=== PATIENT | male | born 1970 | race Caucasian/White ===

== ENCOUNTER 2020-07-18 10:40 | Outpatient (REF) | payer OTHER, SELFPAY ==
[2020-07-18 11:52] LABS: Anion Gap 14 (12-20); Blood Urea Nitrogen 12 mg/dL (9-16); Calcium 8.8 mg/dL (8.4-10.2); Carbon Dioxide 26 mmol/L (22-29); Chloride 105 mmol/L (96-108); Estimated Glomerular Filt Rate > 60; Glucose Random 182 mg/dL (60-115); Potassium 4.7 mmol/l (3.3-5.1); Sodium 140 mmol/L (135-145)
== END 2020-07-18 10:41 | disposition home or self-care (01) ==
LOC: HO.LAB 10:40
PROVIDERS: PCP Internal Medicine; Visit Provider Internal Medicine
DX: R07.2 Precordial pain (principal)
CPT/HCPCS: 80048

== ENCOUNTER → 2020-07-31 13:33 | Outpatient (BNVA) | payer OTHER, SELFPAY | PROVIDERS: PCP Internal Medicine; Referring Provider Internal Medicine; Visit Provider Internal Medicine | DX: Z76.89 Persons encountering health services in other specified circumstances (principal) ==

== ENCOUNTER → 2020-09-26 12:52 | Outpatient (BNVA) | payer OTHER, SELFPAY | PROVIDERS: PCP Internal Medicine; Visit Provider Internal Medicine ==

== ENCOUNTER 2020-11-27 17:03 | Outpatient (REF) | payer OTHER, SELFPAY ==
--- NOTE | ~2020-11-27 | XR_ITS ---
EXAMINATION: XR KNEE, LEFT CLINICAL INFORMATION: Left knee pain. COMPARISON: None. TECHNIQUE: AP and lateral views of the left knee. FINDINGS: There is no evidence of acute fracture or dislocation of the left knee. No left knee effusion. Joint spaces are maintained. There is mild spurring at the patellofemoral joint. XR/XR knee LT 2V IMPRESSION: Mild degenerative change patellofemoral joint.
== END 2020-11-27 17:04 | disposition home or self-care (01) ==
LOC: HO.XRAY 17:03
PROVIDERS: PCP Internal Medicine; Visit Provider Nurse Practitioner Family
DX: M25.562 Pain in left knee (principal)
CPT/HCPCS: 73560

== ENCOUNTER 2020-12-26 10:06 | Outpatient (REF) | payer BC, SELFPAY ==
[2020-12-26 13:29] LABS: MANUAL DIFF FLAG NO
[2020-12-26 13:37] LABS: Basophils Percent Auto 0.5 % (0-2); Eosinophils Absolute Auto 0.3 X10*3/uL (0.0-0.4); Eosinophils Percent Auto 5.7 % (0-4); Hematocrit 47.7 % (42-52); Hemoglobin 15.3 g/dl (14.0-18.0); Imm Gran Abs Auto 0.03 X10*3/uL (0.00-0.03); Imm Gran Pct Auto 0.5 % (0.0-0.4); Lymphocytes Absolute Auto 1.5 X10*3/uL (1.2-4.9); Mean Corpuscular HGB Conc 32.1 g/dl (31.0-36.0); Mean Corpuscular Hemoglobin 27.1 pg (27.0-33.0); Mean Corpuscular Volume 84.4 fL (80-98); Mean Platelet Volume 10.6 fL (9.4-12.4); Monocytes Absolute Auto 0.4 X10*3/uL (0.1-1.2); Monocytes Percent Auto 7.6 % (2-11); Neutrophils Absolute Auto 3.5 X10*3/uL (2.0-8.3); Neutrophils Percent Auto 59.7 % (45-73); Platelet Count 262 X10*3/uL (160-400); Red Blood Count 5.65 X10*6/uL (4.60-5.80); Red Cell Distribution Width 12.8 % (11.0-16.0); White Blood Count 5.8 X10*3/uL (4.8-10.8)
[2020-12-26 13:48] LABS: Glucose Urine UA 500 MG/DL (NEG); Leukocyte Esterase Urine NEG (NEG); Nitrite Urine NEG (NEG); PH 5.5 (5.0-8.0); Specific Gravity - Urine 1.025 (1.005-1.025); Urine Blood NEG (NEG); Urine Ketones NEG (NEG); Urine Protein NEG (NEG-TRACE)
[2020-12-26 13:51] LABS: Appearance Urine CLEAR; Color Urine YELLOW
[2020-12-26 14:15] LABS: Alanine Aminotransferase 28 U/L (0-40); Albumin Level 4.4 g/dL (3.5-5.0); Alkaline Phosphatase 74 U/L (39-117); Anion Gap 15 (12-20); Aspartate Amino Transferase 22 U/L (5-37); Bilirubin Total 0.7 mg/dL (0.0-1.0); Blood Urea Nitrogen 14 mg/dL (9-16); Calcium 9.3 mg/dL (8.4-10.2); Carbon Dioxide 26 mmol/L (22-29); Chloride 105 mmol/L (96-108); Estimated Glomerular Filt Rate > 60; Glucose Fasting 137 mg/dL (60-99); Potassium 4.7 mmol/L (3.3-5.1); Sodium 141 mmol/L (135-145); Total Protein 6.8 g/dL (6.5-8.0)
[2020-12-26 14:17] LABS: Cholesterol 135 mg/dL; HDL Cholesterol 38 mg/dL; LDL Cholesterol Calculated 83 mg/dl; Triglycerides 72 mg/dL
[2020-12-26 14:20] LABS: Estimated Average Glucose 235 mg/dL; Hemoglobin A1c % 9.8 %
[2020-12-26 14:25] LABS: Creatinine Urine 77.64 mg/dL
[2020-12-26 14:40] LABS: TSH reflex Free T4 1.41 uIU/mL (0.32-4.0); Vitamin D 25-OH Total 18.2 ng/mL (>30)
[2020-12-27 05:16] LABS: LDL Cholesterol Direct 82 mg/dL (<100)
== END 2020-12-26 10:07 | disposition home or self-care (01) ==
LOC: HO.10HDL 10:06
PROVIDERS: Internal Medicine; PCP Internal Medicine; Visit Provider Internal Medicine
DX: E66.9 Obesity, unspecified (principal); M25.562 Pain in left knee; E11.65 Type 2 diabetes mellitus with hyperglycemia; I10 Essential (primary) hypertension; E78.5 Hyperlipidemia, unspecified; M19.90 Unspecified osteoarthritis, unspecified site; E78.00 Pure hypercholesterolemia, unspecified; E55.9 Vitamin D deficiency, unspecified; Z79.4 Long term (current) use of insulin
CPT/HCPCS: 36415; 80053; 80061; 81003; 82043; 82306; 83036; 83721; 84443; 85025

== ENCOUNTER → 2021-02-24 15:36 | Outpatient (BNVA) | payer BC, SELFPAY | PROVIDERS: PCP Internal Medicine; Visit Provider Internal Medicine | DX: E11.65 Type 2 diabetes mellitus with hyperglycemia (principal); E78.5 Hyperlipidemia, unspecified; E55.9 Vitamin D deficiency, unspecified; I10 Essential (primary) hypertension; Z79.4 Long term (current) use of insulin; Z71.3 Dietary counseling and surveillance | CPT/HCPCS: 82947 ==

== ENCOUNTER 2021-06-04 10:46 | Outpatient (REF) | payer BC, SELFPAY ==
[2021-06-04 14:06] LABS: MANUAL DIFF FLAG NO
[2021-06-04 14:08] LABS: Appearance Urine CLEAR; Color Urine YELLOW; Glucose Urine UA 100 MG/DL (NEG); Leukocyte Esterase Urine NEG (NEG); Nitrite Urine NEG (NEG); Specific Gravity - Urine 1.025 (1.005-1.025); Urine Blood NEG (NEG); Urine Ketones NEG (NEG); Urine Protein NEG (NEG-TRACE)
[2021-06-04 14:16] LABS: Basophils Percent Auto 0.7 % (0-2); Eosinophils Absolute Auto 0.4 X10*3/uL (0.0-0.4); Eosinophils Percent Auto 5.7 % (0-4); Hematocrit 45.5 % (42-52); Hemoglobin 14.4 g/dl (14.0-18.0); Imm Gran Abs Auto 0.02 X10*3/uL (0.00-0.03); Imm Gran Pct Auto 0.3 % (0.0-0.4); Lymphocytes Absolute Auto 1.2 X10*3/uL (1.2-4.9); Lymphocytes Percent Auto 19.8 % (20-40); Mean Corpuscular HGB Conc 31.6 g/dl (31.0-36.0); Mean Corpuscular Volume 85.4 fL (80-98); Mean Platelet Volume 11.3 fL (9.4-12.4); Monocytes Absolute Auto 0.4 X10*3/uL (0.1-1.2); Monocytes Percent Auto 6.4 % (2-11); Neutrophils Absolute Auto 4.1 X10*3/uL (2.0-8.3); Neutrophils Percent Auto 67.1 % (45-73); Platelet Count 230 X10*3/uL (160-400); Red Blood Count 5.33 X10*6/uL (4.60-5.80); Red Cell Distribution Width 12.9 % (11.0-16.0); White Blood Count 6.1 X10*3/uL (4.8-10.8)
[2021-06-04 14:25] LABS: Estimated Average Glucose 197 mg/dL; Hemoglobin A1c % 8.5 %
[2021-06-04 14:36] LABS: Creatinine Urine 133.52 mg/dL; Microalbum/Creatinine Ratio Ur 8.2 ug/mg cr
[2021-06-04 14:44] LABS: Alanine Aminotransferase 27 U/L (0-40); Albumin Level 4.3 g/dL (3.5-5.0); Alkaline Phosphatase 72 U/L (39-117); Anion Gap 15 (12-20); Aspartate Amino Transferase 19 U/L (5-37); Bilirubin Total 0.6 mg/dL (0.0-1.0); Blood Urea Nitrogen 11 mg/dL (9-16); Calcium 9.1 mg/dL (8.4-10.2); Carbon Dioxide 23 mmol/L (22-29); Chloride 105 mmol/L (96-108); Cholesterol 156 mg/dL; Estimated Glomerular Filt Rate > 60; Glucose Fasting 149 mg/dL (60-99); HDL Cholesterol 45 mg/dL; LDL Cholesterol Calculated 93 mg/dl; Potassium 5.1 mmol/L (3.3-5.1); Sodium 138 mmol/L (135-145); Total Protein 6.7 g/dL (6.5-8.0); Triglycerides 94 mg/dL
[2021-06-04 14:50] LABS: TSH reflex Free T4 1.54 uIU/mL (0.32-4.0); Vitamin D 25-OH Total 34.6 ng/mL (>30)
== END 2021-06-04 10:47 | disposition home or self-care (01) ==
LOC: HO.10HDL 10:46
PROVIDERS: Absent Provider Internal Medicine; Visit Provider Internal Medicine
DX: E55.9 Vitamin D deficiency, unspecified (principal); E66.9 Obesity, unspecified; E78.00 Pure hypercholesterolemia, unspecified; E11.65 Type 2 diabetes mellitus with hyperglycemia; I10 Essential (primary) hypertension; Z79.4 Long term (current) use of insulin
CPT/HCPCS: 36415; 80053; 80061; 81003; 82043; 82306; 83036; 84443; 85025

== ENCOUNTER 2021-06-19 10:26 | Outpatient (REF) | payer BC, SELFPAY ==
--- NOTE | ~2021-06-19 | US_ITS ---
EXAMINATION: US RETROPERITONEAL LIMITED (RENAL ONLY) CLINICAL INFORMATION: Unspecified abdominal pain. COMPARISON: Urinary bladder ultrasound dated 07/27/2011. CT abdomen/pelvis dated 11/02/2007. TECHNIQUE: Real-time imaging of the kidneys. FINDINGS: RIGHT KIDNEY: 11.3 x 5.7 x 5.8 cm (SAG x AP x TRV). The kidney is normal in size, contour, and echogenicity. Renal cortical thickness is normal. No calculi or focal parenchymal lesions. No hydronephrosis. LEFT KIDNEY: 12.1 x 6.1 x 5.1 cm (SAG x AP x TRV). The kidney is normal in size, contour, and echogenicity. Renal cortical thickness is normal. No renal calculi or hydronephrosis. Midpole simple cyst measuring 1 x 1 x 0.6 cm. Findings are not clinically significant and no follow-up imaging is recommended. This is stable when compared to the prior CT from 2007. US/US renal BI IMPRESSION: Unremarkable examination.
== END 2021-06-19 10:27 | disposition home or self-care (01) ==
LOC: HO.HMGCX 10:26
PROVIDERS: PCP Internal Medicine; Visit Provider Nurse Practitioner Family
DX: E11.65 Type 2 diabetes mellitus with hyperglycemia (principal); E78.5 Hyperlipidemia, unspecified; I10 Essential (primary) hypertension; E55.9 Vitamin D deficiency, unspecified; E66.01 Morbid (severe) obesity due to excess calories; Z68.35 Body mass index [BMI] 35.0-35.9, adult; Z79.4 Long term (current) use of insulin
CPT/HCPCS: 76775; 82947

== ENCOUNTER → 2021-09-18 12:50 | Outpatient (BNVA) | payer BC, SELFPAY | PROVIDERS: PCP Internal Medicine; Referring Provider Internal Medicine; Visit Provider Nurse Practitioner ==

== ENCOUNTER 2021-09-25 16:00 | Outpatient (RCR) | payer BC, SELFPAY ==
--- NOTE | 2021-05-20 18:46 | MHC.PT.EP ---
[facility] [place] Office [place] Office [place] Office [address] Ifeanyi Billings [address] [phone] F: [phone] F: [phone] F: [phone] F: [phone] Physical Therapy Plan of Care Date of Evaluation: Date of Surgery: n/a on L knee Diagnosis: pain in L knee Assessment: Pt is a 50 yo/M present to clinic for eval/treat of pain in R knee. Pt presents with signs and sx consistent with knee dysfunction resulting in decreased tolerance and ability to perform ambulatory, standing tasks for duration, performing fitness activities such as running, negotiating stairs, performing squatting activities and heavy HH chores. Functional limitations mentioned above are secondary to restricted knee ROM, + Margaret test, TTP infrapattellar region, gait abnormality and infrapatellar pain. Pt is deemed an appropriate candidate to receive skilled PT in order to address his physical limitations to improve his functional ability. Frequency and Duration: The patient will be seen 2x/wk for 5 wk Short Term Goals: Initiate HEP I w/ evidence of Compliance pt will report feeling pain less than 1/10 at rest Hadoop Analyst Goals: Pt will be able to ambulate 1 mile w/ little to no pain; initial extreme difficulty pt will be able to negotiate stairs w/ little to no pain; initial extreme difficulty pt will improve his LEFI score by increment of 2 MDC and MCID; initial score 32/80 Treatment Plan: Modalities to reduce pain, spasms and effusion. Manual therapy to restore motion and function. Therapeutic exercise to improve strength and flexibility. Neuromuscular re-education for posture and balance. Therapeutic activities to return to functional activities of daily living. Electronically signed by: Ben Bernardo PT Please sign and return to therapist. Thank you for your referral.
== END 2021-10-31 10:37 | disposition home or self-care (01) ==
LOC: HO.PTCHIC 16:00
PROVIDERS: PCP Internal Medicine; Visit Provider Internal Medicine
DX: M25.562 Pain in left knee (principal)
CPT/HCPCS: 97014; 97110; 97140; 97161; 97530

== ENCOUNTER → 2021-11-27 07:33 | Outpatient (BNVA) | payer BC, SELFPAY | PROVIDERS: PCP Internal Medicine; Visit Provider Nurse Practitioner Gerontology | DX: E11.65 Type 2 diabetes mellitus with hyperglycemia (principal); E78.5 Hyperlipidemia, unspecified; E55.9 Vitamin D deficiency, unspecified; E66.01 Morbid (severe) obesity due to excess calories; I10 Essential (primary) hypertension; Z79.4 Long term (current) use of insulin; Z68.34 Body mass index [BMI] 34.0-34.9, adult | CPT/HCPCS: 82947 ==

== ENCOUNTER 2021-12-11 07:52 | Day surgery (SDC) | payer BC, SELFPAY ==
[2021-12-08 12:41] VITALS: BMI 35.5
--- NOTE | 2021-12-10 09:32 | P.CONAN_ITS ---
Documented by User: Britt Watters NP 12/10/21 09:33 HPI - Anesthesia Eval Consult details Narrative: 51yo M for Colonoscopy PMFSH Active Problems Active Problems: All Active Problems (Updated 09/01/21 @ 16:59 by Marin Smith MD) Nasal congestion (Acute) Obesity due to excess calories (Acute) Back pain (Acute) Right flank pain (Acute) Colon cancer screening (Acute) Anxiety and depression (Acute) Annual physical exam (Acute) Benign essential hypertension (Acute) Obesity (BMI 30-39.9) (Acute) Osteoarthritis of left knee (Acute) Diabetes mellitus (Acute) Pure hypercholesterolemia (Acute) Left knee pain (Acute) Vitamin D deficiency (Acute) HTN (hypertension) (Acute) HLD (hyperlipidemia) (Acute) T2DM (type 2 diabetes mellitus) (Acute) Past Medical History Medical History Anxiety and depression Benign essential hypertension Diabetes mellitus History of testicular cancer HLD (hyperlipidemia) HTN (hypertension) Left knee pain Obesity (BMI 30-39.9) Obesity due to excess calories Osteoarthritis of left knee Pure hypercholesterolemia T2DM (type 2 diabetes mellitus) Vitamin D deficiency Family History Family History Father CVD (cardiovascular disease) Mother No problems noted. Other Mental health problem Surgical History Surgical History History of orchiectomy Hx of fasciotomy Hx of oral surgery Social History Social History Household Members: Spouse, Family and Children Housing: House Alcohol intake: former Patient Tobacco Use Status: Never used Tobacco Second Hand Smoke Exposure: Yes Use of substances other than those prescribed or required for medical reasons: No Are you DNR?: No Advance Directives: No Advance Directives Information Provided: Yes Recently lost weight without trying: No service: Yes Current occupational status: employed Meds Allergies Allergy/AdvReac Type Severity Reaction Status Date / Time Penicillins AdvReac GI UPSET Verified 11/27/21 07:43 Home Medications Medication Instructions Recorded Confirmed Last Taken Type flash glucose scanning reader #1 ea 09/26/20 09/01/21 Unknown History pen needle, diabetic 31 gauge x #50 ea 09/26/20 09/01/21 Unknown History 11/19 azelastine 137 mcg (0.1 %) nasal 2 spray INTRANASAL BID 06/19/21 11/27/21 Unknown History spray aerosol Exam Exam Date and Time: December 10, [id number] Height,Weight and Vital Signs: Height 5 ft 6 in Weight 99.79 kg Assessment and Plan Assessment Anesthesia Assessment: Chart Reviewed Documented by User: Isabell Grace MD 12/11/21 09:25 [facility] Past Medical History Medical History Anxiety and depression Benign essential hypertension Diabetes mellitus History of testicular cancer HLD (hyperlipidemia) HTN (hypertension) Left knee pain Obesity (BMI 30-39.9) Obesity due to excess calories Osteoarthritis of left knee Pure hypercholesterolemia T2DM (type 2 diabetes mellitus) Vitamin D deficiency Family History Family History Father CVD (cardiovascular disease) Mother No problems noted. Other Mental health problem Surgical History Surgical History History of orchiectomy Hx of fasciotomy Hx of oral surgery History of Problems with Anesthesia: No Social History Social History Household Members: Spouse, Family and Children Housing: House Alcohol intake: former Patient Tobacco Use Status: Never used Tobacco Second Hand Smoke Exposure: Yes Use of substances other than those prescribed or required for medical reasons: No Are you DNR?: No Advance Directives: No Advance Directives Information Provided: Yes Recently lost weight without trying: No service: Yes Current occupational status: employed Meds Allergies Allergy/AdvReac Type Severity Reaction Status Date / Time Penicillins AdvReac GI UPSET Verified 11/27/21 07:43 Home Medications Medication Instructions Recorded Confirmed Last Taken Type flash glucose scanning reader #1 ea 09/26/20 09/01/21 Unknown History pen needle, diabetic 31 gauge x #50 ea 09/26/20 09/01/21 Unknown History 11/19 azelastine 137 mcg (0.1 %) nasal 2 spray INTRANASAL BID 06/19/21 11/27/21 Unknown History spray aerosol Exam Airway Mallampati Class: II TM Dist: >3cm Neck ROM: Full Loose/Missing/Broken Teeth: No Heart: RRR Lungs: CTA Assessment and Plan Assessment Anesthesia Assessment: Anesthesia Plan Discussed Final Anesthetic Review History of Problems with Anesthesia: No NPO: Yes ASA Class: II Final Preanesthetic Review: Meds/Allgs Chart Reviewed, Consent Obtained/Reviewed and Anes Risks/Benef Reviewed Patient Risk: Low Procedure Risk: Low Anesthetic Plan Anesthetic Plan: MAC: Disposition: Standard PACU
[2021-12-11 08:33] VITALS: BP 134/90; PULSE 75; RESP 18; TEMP 36.3; O2SAT 97
[2021-12-11 08:48] LABS: Glucose, Whole Blood 154 mg/dL (60-115)
[2021-12-11] MEDS: Lactated Ringers 1,000 ML 100 ML IVCONT (09:17)
--- NOTE | 2021-12-11 09:22 | MHC.SHP ---
Pre-Procedural Eval Section A Date of Service: 12/11/21 Section B Chief Complaint: screening Relevant Family History (Specify if Yes): No Relevant Social History: None Present Medications: see Short Stay Collaborative assessment Medical History: Significant History (Anxiety and depression Benign essential hypertension Diabetes mellitus History of testicular cancer HLD (hyperlipidemia) HTN (hypertension) Left knee pain Obesity (BMI 30-39.9) Obesity due to excess calories Osteoarthritis of left knee Pure hypercholesterolemia T2DM (type 2 diabetes mellitus) Vitami) History of Previous Operations: Relevant previous surgery/procedure and date(s) (History of orchiectomy Hx of fasciotomy Hx of oral surgery) Allergies: Allergies Allergy/AdvReac Type Severity Reaction Status Date / Time Penicillins AdvReac GI UPSET Verified 11/27/21 07:43 Review of Systems Sugical H&P ROS: Negative: Constitution, Cardiovascular, Respiratory, Neurological, Psychiatric, Hem-Onc, Allergic/Immunologic, Gastrointestinal, Genitourinary, Musculoskeletal, Integumentary, Endocrine and Eyes/Ears/Nose/Throat Exam Surgical H&P Exam: Normal: HEENT, Normal: Heart, Normal: Lungs, Normal: Extremities, Normal: Abdomen, Normal: Skin and Normal: Neurological Plan Diagnosis/Plan: Unchanged I have reviewed the history and physical and performed a pertinent physical examination on my patient. No changes have occurred unless specified.
--- NOTE | 2021-12-11 09:23 | P.OP_ITS ---
Operative Note Operative Note Date of Service: 12/11/21 Narrative: Operative Information Procedure Description: Colonoscopy Indication: screening colonoscopy--average risk Anesthesia: MAC COLONOSCOPY Instrument: Olympus variable stiffness pediatric scope 190L Colonoscopy Monitoring: Vital signs and clinical assessment, continuous EKG monitoring, Pulse oximetry, Carbon Dioxide monitoring and blood pressure monitoring were done throughout the procedure. Colon withdrawal time was 13 minutes. Procedure: The patient was placed in the left lateral decubitis position and pre-procedure medications were administered. After a digital rectal examination of the ano-rectum, the video colonoscope was inserted into the rectum and advanced through the colon to the cecum/TI. The colonoscope was slowly withdrawn in a retrograde panoramic fashion and the colon mucosa was carefully examined including a retroflexed view of the rectum. Findings and interventions are described below. Procedure Difficulty: easy Findings: Terminal Ileum-normal right sided retroflexion was normal Cecum:normal Ascending Colon: normal Transverse Colon - diminutive polyp 3-4 mm removed with cold forceps Descending Colon:normal Sigmoid Colon: 10-12 mm semi pedunculated polyp removed with cold snare and 1 clip applied for hemostasis Rectum: Retroflexion with small internal hemorrhoids, grade I Anorectum - normal Colon preparation: Hazel Bowel Preparation Scale Right colon; 3 Transverse colon: 3 Left colon; 2 (0 = Unprepared colon segment with mucosa not seen due to solid stool that cannot be cleared. 1 = Portion of mucosa of the colon segment seen, but other areas of the colon se gment not well seen due to staining, residual stool and/or opaque liquid. 2 = Minor amount of residual staining, small fragments of stool and/or opaque liquid, but mucosa of colon segment seen well. 3 = Entire mucosa of colon segment seen well with no residual staining, small fragments of stool or opaque liquid) Impression and Post Procedure Diagnosis: polyps internal hemorrhoids Plan: High fiber diet leaflet Avoid straining at stool, epsom salts and sitz bath, anusol supps or cream Repeat Colonoscopy in 5 years due to polyps or earlier if clinically indicated Above findings were reviewed with the patient and relevant handouts were provided if indicated.
--- NOTE | 2021-12-11 09:23 | PM.OP ---
Brief Operative Note Date of Service: 12/11/21 Pre-op diagnosis: screening Post-op diagnosis: same Procedure: see op note Surgeon: Shakira Escamilla MD Anesthesia: MAC Was an Instructor Warper used for this Procedure?: No Estimated blood loss (mL): 0 Condition: stable Disposition: PACU
[2021-12-11 09:57] VITALS: BP 95/58; PULSE 70; RESP 16; TEMP 36.6; O2SAT 97
[2021-12-11 10:12] VITALS: BP 100/64; PULSE 77; RESP 18; TEMP 36.6; O2SAT 96
== END 2021-12-11 10:51 | disposition home or self-care (01) ==
PROVIDERS: PCP Internal Medicine; Visit Provider Internal Medicine Gastroenterology
PROC: 0DJD8ZZ Inspection of Lower Intestinal Tract, Via Natural or Artificial Opening Endoscopic (ICD-10-PCS; CPT 45378; principal; 2021-12-11 09:20)
DX: Z12.11 Encounter for screening for malignant neoplasm of colon (principal); K63.5 Polyp of colon; K64.0 First degree hemorrhoids; E66.01 Morbid (severe) obesity due to excess calories; Z68.35 Body mass index [BMI] 35.0-35.9, adult; E11.9 Type 2 diabetes mellitus without complications; I10 Essential (primary) hypertension; E78.5 Hyperlipidemia, unspecified; E78.00 Pure hypercholesterolemia, unspecified; F32.9 Major depressive disorder, single episode, unspecified; Z79.4 Long term (current) use of insulin; Z79.899 Other long term (current) drug therapy; Z85.47 Personal history of malignant neoplasm of testis; Z90.79 Acquired absence of other genital organ(s); Z88.0 Allergy status to penicillin
CPT/HCPCS: 45385; 45380; 82947; 88305

== ENCOUNTER → 2021-12-26 07:38 | Outpatient (BNVA) | payer BC, SELFPAY | PROVIDERS: PCP Internal Medicine; Referring Provider Internal Medicine; Visit Provider Nurse Practitioner | DX: Z13.89 Encounter for screening for other disorder (principal) ==

== ENCOUNTER 2023-04-22 08:13 | Outpatient (REF) | payer BC, SELFPAY ==
[2023-04-22 08:41] LABS: MANUAL DIFF FLAG NO
[2023-04-22 08:50] LABS: Basophils Absolute Auto 0.1 X10*3/uL (0.0-0.2); Basophils Percent Auto 0.7 % (0-2); Eosinophils Absolute Auto 0.5 X10*3/uL (0.0-0.4); Eosinophils Percent Auto 6.7 % (0-4); Hematocrit 47.1 % (42.0-52.0); Hemoglobin 15.2 g/dl (14.0-18.0); Imm Gran Abs Auto 0.06 X10*3/uL (0.00-0.03); Imm Gran Pct Auto 0.9 % (0.0-0.4); Lymphocytes Absolute Auto 1.6 X10*3/uL (1.2-4.9); Lymphocytes Percent Auto 22.3 % (20-40); Mean Corpuscular HGB Conc 32.3 g/dl (31.0-36.0); Mean Corpuscular Hemoglobin 26.8 pg (27.0-33.0); Mean Corpuscular Volume 82.9 fL (80.0-98.0); Monocytes Absolute Auto 0.5 X10*3/uL (0.1-1.2); Monocytes Percent Auto 7.2 % (2-11); Neutrophils Absolute Auto 4.3 x10*3/uL (2.0-8.3); Neutrophils Percent Auto 62.2 % (45-73); Platelet Count 250 X10*3/uL (160-400); Red Blood Count 5.68 X10*6/uL (4.60-5.80)
[2023-04-22 09:06] LABS: Estimated Average Glucose 269 mg/dL
[2023-04-22 09:55] LABS: Alanine Aminotransferase 27 U/L (0-40); Albumin Level 4.3 g/dL (3.5-5.0); Alkaline Phosphatase 61 U/L (39-117); Anion Gap 15 (12-20); Aspartate Amino Transferase 21 U/L (5-37); Bilirubin Total 0.6 mg/dL (0.0-1.0); Blood Urea Nitrogen 22 mg/dL (9-16); Calcium 9.4 mg/dL (8.4-10.2); Carbon Dioxide 26 mmol/L (22-29); Chloride 104 mmol/L (96-108); Cholesterol 138 mg/dL; Estimated Glomerular Filt Rate > 60; Glucose Fasting 157 mg/dL (60-99); HDL Cholesterol 33 mg/dL; LDL Cholesterol Calculated 77 mg/dl; Potassium 4.5 mmol/L (3.3-5.1); Sodium 140 mmol/L (135-145); Total Protein 6.9 g/dL (6.5-8.0); Triglycerides 141 mg/dL
[2023-04-22 09:58] LABS: TSH reflex Free T4 1.99 uIU/mL (0.32-4.0); Vitamin D 25-OH Total 40.2 ng/mL (>30)
[2023-04-22 10:07] LABS: Folate 12.2 ng/mL (> or = 4.0); Vitamin B12 624 pg/mL (200-900)
[2023-04-22 11:16] LABS: Appearance Urine Clear; Color Urine Yellow; Glucose Urine UA >=1000 mg/dL (Negative); Leukocyte Esterase Urine Negative (Negative); Nitrite Urine Negative (Negative); PH 5.5 (5.0-9.0); Specific Gravity - Urine >= 1.030 (1.005-1.025); UMIC TRIGGER UACC YES; Urine Blood Negative (Negative); Urine Ketones Negative (Negative); Urine Protein Negative (Neg-Trace)
[2023-04-22 11:22] LABS: Bacteria Urine None Seen (None Seen); Hyaline Casts Urine 0-2 /LPF (0-2); RBC Urine 0-2 /HPF (0-2); Squamous Epithelial Cell Urine 0-2 /HPF (0-2); WBC Urine 0-5 /HPF (0-5)
[2023-04-22 12:19] LABS: Microalbum/Creatinine Ratio Ur 7.1 ug/mg cr
== END 2023-04-22 08:14 | disposition home or self-care (01) ==
LOC: HO.LAB 08:13
PROVIDERS: PCP Internal Medicine; Visit Provider Internal Medicine
DX: E55.9 Vitamin D deficiency, unspecified (principal); I10 Essential (primary) hypertension; E11.9 Type 2 diabetes mellitus without complications; E53.8 Deficiency of other specified B group vitamins; E78.00 Pure hypercholesterolemia, unspecified
CPT/HCPCS: 36415; 80053; 80061; 81001; 81003; 82043; 82306; 82607; 82746; 83036; 84443; 85025

== ENCOUNTER 2023-04-23 07:52 | Outpatient (AMB) | payer BC, SELFPAY ==
--- NOTE | 2023-04-23 07:54 | A.OFFVIS_ITS ---
Intake Vital Signs 04/23/23 07:55 Height 5 ft 6 in Weight 214 lb 8.156 oz BMI 34.6 BP 114/72 Blood Pressure Location Lt brachial Position Sitting Pulse 78 Pulse Source Pulse Oximeter Intake Visit Reasons: DM2 Intake Note: New patient presents today for Type 2 Diabetes Mellitus. Last Diabetic Eye exam: 2021 Last Podiatry Visit: Does not have one Random Glucose: 182 mg/dl HgA1C: 11.3% Band Saw Operator Cake Cutting Required: No Accompanied by: Self / Same As Patient Allergies Penicillins Adverse Reaction (Verified 04/23/23 08:00) GI UPSET Medication List - Last Reconciled 04/23/23 by Juan Francisco Fernandez MD atorvastatin 40 mg PO DAILY 30 days azelastine 2 sprays intranasal BID blood sugar diagnostic (Accu-Chek Guide test strips) As directed blood-glucose meter (Accu-Chek Guide Me Glucose Meter) As directed blood-glucose meter,continuous (Dexcom G6 Truck Loader) As directed blood-glucose sensor (Dexcom G6 Sensor device) As directed cholecalciferol (vitamin D3) 50 mcg PO DAILY 30 days Dexcom G6 Transmitter (blood-glucose transmitter) As directed NS empagliflozin (Jardiance) 25 mg PO DAILY 90 days flash glucose scanning reader As directed ibuprofen 800 mg PO Q8H PRN 15 days insulin detemir U-100 25 units (0.25 mL) subcut BEDTIME insulin lispro (Humalog KwikPen (U-100) Insulin) 5 - 9 units (0.05 - 0.09 mL) subcut TID 90 days lisinopril 5 mg PO DAILY 90 days metformin ER 1,000 mg (2 x 500 mg) PO BID 30 days Novolog FlexPen U-100 Insulin (insulin aspart U-100) Inject 5 to 9 units subcuta neously TID with meals as instructed; NS [Pen needle 32 gauge x 4/32 (P3BD Ultra-Fine Sonal Pen Needle) use as directed with insulin pen 4 times a day (with meals and at bedtime)] pen needle, diabetic (BD Ultra-Fine Sonal Pen Needle) use as directed 4 times a day before meal and at bedtime; 90 days pen needle, diabetic As directed sertraline 50 mg PO DAILY 90 days sildenafil 50 mg PO DAILY PRN HPI HPI Comments History of Present Illness Details Patient is a 50-year-old male with DM type 2 diagnosed 2014, who presents for management of diabetes. Patient was last seen 11/27/21 by Felicity Zaman NP Past medical history: Diabetes type 2, hyperlipidemia, HTN Micro and macrovascular complications: None known Diabetes medications: Metformin 1000 mg twice a day, Jardiance 25 mg daily Levemir 25 units at bedtime. Humalog 5 units small/reg meal, 7 units large meal, + 2 units for bg over 200. He was intolerant of Victoza due to GI distress. Continuous glucose monitoring: Cardize download from 04/06/20202022 shows average glucose to be 269 with standard deviations 79. The sensor is being use 57% of the time. 14% range with 86% hyperglycemia and no hypoglycemia. Pattern shows declining point cares overnight but increasing point cares after [id number] Symptoms reported: denies numbness, tingling, cramping in lower extremities Hypoglycemia: denies Hyperglycemia: denies daytime urinary frequency, + nocturia, denies polydypsia Exercise: limited due to arthritis in left knee, limited to 1/2 mile. Is currently considering purchasing an indoor bicycle. Supervisor Sterile Processing - CDE education: has seen welfare case worker Shoe Dresser: benedicties Dental exam: goes every 6 months Ophthalmology evaluation: saw 1 yr ago needs t make appt - ou no retinopathy Laboratory Tests 06/04/21 06/04/21 06/04/21 10:50 10:50 10:50 Creatinine 0.84 Estimated GFR > 60 Hemoglobin A1c % 8.5 Triglycerides 94 Cholesterol 156 LDL Cholesterol, C alc 93 HDL Cholesterol 45 25-OH Vitamin D To inocente TSH 1.54 Microalb/Creat Rat io 8.2 06/04/21 10:50 Creatinine Estimated GFR Hemoglobin A1c % Triglycerides Cholesterol LDL Cholesterol, C alc HDL Cholesterol 25-OH Vitamin D To inocente 34.6 TSH Microalb/Creat Rat io PFSH Medical History Allergic rhinitis Anxiety and depression Benign essential hypertension Diabetes mellitus History of testicular cancer HLD (hyperlipidemia) HTN (hypertension) Left knee pain Obesity (BMI 30-39.9) Obesity due to excess calories Osteoarthritis of left knee Pure hypercholesterolemia T2DM (type 2 diabetes mellitus) Vitamin D deficiency Surgical History History of colonoscopy History of orchiectomy Hx of fasciotomy Hx of oral surgery Family History Father CVD (cardiovascular disease) Mother No problems noted. Other Mental health problem Social History Household Members: Spouse, Family and Children Housing: House Alcohol intake: former Patient Tobacco Use Status: Never used Tobacco e-Cigarette/Vaping Use: Never Used Second Hand Smoke Exposure: Yes service: Yes Current occupational status: employed Cognitive needs: No Hearing needs: No Vision needs: Yes Physical Exam Vital Signs: Last Vital Signs Pulse 78 04/23/23 07:55 BP 114/72 04/23/23 07:55 BMI result Body Mass Index 34.6 Absence of Cushingoid features. Absence of acromegalic features. Neck exam reveals nl size thyroid about 15 gms. No thyroid nodules palpable. No carotid bruits present. Lungs CTA. Heart S1 S2, Reg R/R. No M/R/ G. Skin exam reveals absence of vitiligo or acanthosis nigricans. Abdominal exam reveals Soft NT/ND with NA BS. No organomegaly present. Neck Other: . Extrem Other: Visual exam of foot performed. No ulcerations or open lesions. No onchomycosis, no callouses.Pulses 2 + distally Sensation intact to monofilament exam. Vibratory sensation sensed is intact with 128 Hz tuning fork Results AMB Hemoglobin A1c AMB Hemoglobin A1c 11.3 % Last Edit by Lisa West on 04/23/23 08:41 Results Reviewed Results Reviewed: 04/23/23 08:13 Glucose, Whole Blood Routine Laboratory Last Values Glucose (Clinic) 182 mg/dL (60-115) H 04/23/23 08:13 Hgb A1c (Clinic) 11.3 % (4.0-6.0) H 04/23/23 08:31 Assessment & Plan Assessment & Plan (1) Diabetes mellitus: Code(s): E11.9 - Type 2 diabetes mellitus without complications Qualifiers: Diabetes mellitus complication status: without complication Diabetes mellitus long-term insulin use: with long-term use Diabetes mellitus type: type 2 Qualified Code(s): E11.9 - Type 2 diabetes mellitus without complications; Z79.4 - remote computer terminal operator (current) use of insulin (2) T2DM (type 2 diabetes mellitus): Code(s): E11.9 - Type 2 diabetes mellitus without complications Qualifiers: Diabetes mellitus predatory animal exterminator insulin use: with long-term use Diabetes mellitus complication status: with hyperglycemia Qualified Code(s): E11.65 - Type 2 diabetes mellitus with hyperglycemia; Z79.4 - detention (current) use of insulin Plan: This is a 52-year-old white male with a history of type 2 diabetes being treated with Jardiance, metformin and basal-bolus insulin with glycemic control and no known microvascular or macrovascular complication. Plan is to check anti-G AD 65 antibodies to rule out type 1 RENEE although doubt. Will change Levemir to Tresiba insulin 25 units before bedtime and titrate accordingly. Assuming antibodies are negative, will start Mounjaro 2.5 mg Q weekly and titrate if tolerated. Told patient to report any hypoglycemia for adjustment of insulin. Will set up appointment with traffic technician and welfare case worker. Mounjaro 2.5 mg samples given the patient lot number [id number] C expiration 10/08/2024 Orders: Orders Glutamic acid decarboxylase Ab Today E11.9 - Type 2 diabetes mellitus without complications AMB Hemoglobin A1c Today E11.9 - Type 2 diabetes mellitus without complications Referrals Diabetes Education Referral E11.9 - Type 2 diabetes mellitus without complications Nutrition/Dietitian Referral E11.9 - Type 2 diabetes mellitus without complications Medications: New insulin degludec (Tresiba FlexTouch U-100 insulin) 25 units (0.25 mL) subcut BEDTIME 30 mL 4RF tirzepatide (Mounjaro) 5 mg (0.5 mL) subcut QWEEK 2 mL 5RF blood-glucose sensor (Dexcom G7 Sensor device) As directed change every 10 days 3 ea 4RF Discontinued insulin detemir U-100 Discontinued Reason: Duplicate 25 units (0.25 mL) subcut BEDTIME 15 mL 2RF E11.9 - Type 2 diabetes mellitus without complications, Z79.4 - remote computer terminal operator (current) use of insulin blood-glucose meter,continuous (Dexcom G6 Truck Loader) Discontinued Reason: Doctor's Order As directed 1 ea 0RF blood-glucose sensor (Dexcom G6 Sensor device) Discontinued Reason: Doctor's Order As directed 3 ea 3RF E11.9 - Type 2 diabetes mellitus without complications, Z79.4 - detention (current) use of insulin Coding Level of Care Code Est Pt Level 4 (29905) Diagnoses Diabetes mellitus E11.9; Z79.4 Diabetes mellitus complication status: without complication Diabetes mellitus long-term insulin use: with predatory animal exterminator use Diabetes mellitus type: type 2 T2DM (type 2 diabetes mellitus) E11.65; Z79.4 Diabetes mellitus long-term insulin use: with long-term use Diabetes mellitus complication status: with hyperglycemia
[2023-04-23 07:55] VITALS: BP 114/72; PULSE 78; BMI 34.6
[2023-04-23 08:18] LABS: Glucose, Whole Blood 182 mg/dL (60-115)
== END 2023-04-23 09:20 | disposition home or self-care (01) ==
PROVIDERS: PCP Internal Medicine; Visit Provider Internal Medicine Endocrinology, Diabetes & Metabolism
DX: E11.9 Type 2 diabetes mellitus without complications (principal); Z79.4 Long term (current) use of insulin; E11.65 Type 2 diabetes mellitus with hyperglycemia
CPT/HCPCS: 99214

== ENCOUNTER → 2023-04-23 07:52 | Outpatient (BNVA) | payer BC, SELFPAY | PROVIDERS: Visit Provider Internal Medicine Endocrinology, Diabetes & Metabolism | DX: E11.65 Type 2 diabetes mellitus with hyperglycemia (principal); Z79.4 Long term (current) use of insulin | CPT/HCPCS: 82947; 83036 ==

== ENCOUNTER 2023-04-23 09:20 | Outpatient (REF) | payer BC, SELFPAY ==
[2023-04-28 14:54] LABS: Glutamic acid decarboxylase Ab <5 IU/mL (<5)
== END 2023-04-23 09:21 | disposition home or self-care (01) ==
LOC: HO.10HDL 09:20
PROVIDERS: Visit Provider Internal Medicine Endocrinology, Diabetes & Metabolism
DX: E11.65 Type 2 diabetes mellitus with hyperglycemia (principal); Z79.4 Long term (current) use of insulin
CPT/HCPCS: 36415; 86341

== ENCOUNTER 2023-05-07 15:41 | Outpatient (AMB) | payer BC, SELFPAY ==
--- NOTE | 2023-05-07 15:45 | MHC.PC.OV ---
Vital Signs 05/07/23 15:46 Height 5 ft 6 in Weight 211 lb 2 oz BMI 34.1 BP 120/82 Blood Pressure Location Lt brachial Position Sitting Pulse 83 Pulse Source Pulse Oximeter Pulse Oximetry (%) 97 Oxygen Delivery Method Room Air Intake Visit Reasons: DM, hyperlipidemia, HTN Furniture Shampooer Required: No Accompanied by: Self / Same As Patient Allergies Penicillins Adverse Reaction (Verified 05/07/23 16:19) GI UPSET Medication List - Last Reconciled 05/07/23 by Marin Smith MD atorvastatin 40 mg PO DAILY 30 days azelastine 2 sprays intranasal BID blood sugar diagnostic (Accu-Chek Guide test strips) As directed blood-glucose meter (Accu-Chek Guide Me Glucose Meter) As directed blood-glucose sensor (DexBeagle [employer] G7 Sensor device) As directed change every 10 days cholecalciferol (vitamin D3) 50 mcg PO DAILY 30 days Dexcom G6 Transmitter (blood-glucose transmitter) As directed NS empagliflozin (Jardiance) 25 mg PO DAILY 90 days flash glucose scanning reader As directed ibuprofen 800 mg PO Q8H PRN 15 days insulin degludec (Tresiba FlexTouch U-100 insulin) 25 units (0.25 mL) subcut BEDTIME insulin lispro (Humalog KwikPen (U-100) Insulin) 5 - 9 units (0.05 - 0.09 mL) subcut TID 90 days lisinopril 5 mg PO DAILY 90 days metformin ER 1,000 mg (2 x 500 mg) PO BID 30 days Novolog FlexPen U-100 Insulin (insulin aspart U-100) Inject 5 to 9 units subcutaneously TID with meals as instructed; NS [Pen needle 32 gauge x 4/32 (P3BD Ultra-Fine Sonal Pen Needle) use as directed with insulin pen 4 times a day (with meals and at bedtime)] pen needle, diabetic (BD Ultra-Fine Sonal Pen Needle) use as directed 4 times a day before meal and at bedtime; 90 days pen needle, diabetic As directed sertraline 50 mg PO DAILY 90 days sildenafil 50 mg PO DAILY PRN tirzepatide (Mounjaro) 5 mg (0.5 mL) subcut QWEEK Tobacco use date assessed: 05/07/23 Dental Screening Dental Screen Date: 05/07/23 Did you have a dental visit in the last 12 months?: Yes Did you have a dental problem in the last 6 months where you did not have access to dental care?: No Was dental information given to patient?: Patient has dentist HPI DM, hyperlipidemia, HTN HPI Details Patient comes in today for his follow up visit States that he feels okay and that his blood sugar has improved significantly since Dr. Fernandez started him on Mounjaro about 2 weeks ago States that he now has a CGM and his average daily blood sugar readings has now dropped to around 150 to 160 mg/dl (was well over 200 mg/dl about 2 weeks ago) Relates that other than occasional nausea. he has had no problems so far with his Mounjaro Rx He was continued for now on all of his other diabetic medications at least until his next follow up appointment with Dr. Fernandez in a few months He denies any headaches or dizziness Denies any chest pains, no SOB No vomiting, no abdominal pain and no change in bowel habits noted Had his follow up labs done a couple of weeks ago - to discuss his results COUNT INCLUDES [facility] Medical History Allergic rhinitis Anxiety and depression Benign essential hypertension Diabetes mellitus History of testicular cancer HLD (hyperlipidemia) HTN (hypertension) Left knee pain Obesity (BMI 30-39.9) Obesity due to excess calories Osteoarthritis of left knee Pure hypercholesterolemia T2DM (type 2 diabetes mellitus) Vitamin D deficiency Surgical History History of colonoscopy History of orchiectomy Hx of fasciotomy Hx of oral surgery Family History Father CVD (cardiovascular disease) Mother No problems noted. Other Mental health problem Social History Household Members: Spouse, Family and Children Housing: House Alcohol intake: former Patient Tobacco Use Status: Never used Tobacco e-Cigarette/Vaping Use: Never Used Second Hand Smoke Exposure: Yes service: Yes Current occupational status: employed Cognitive needs: No Hearing needs: No Vision needs: Yes Questionnaire PHQ-9 Over the last 2 weeks, how often have you been bothered by any of the following problems? 1. Little interest or pleasure in doing things: not at all 2. Feeling down, depressed, or hopeless: several days 3. Trouble falling or staying asleep, or sleeping too much: nearly every day 4. Feeling tired or having little energy: several days 5. Poor appetite or overeating: several days 6. Feeling bad about yourself - or that you are a failure or have let yourself or your family down: not at all 7. Trouble concentrating on things, such as reading the newspaper or watching television: nearly every day 8. Moving or speaking so slowly that other people could have noticed. Or the opposite - being so fidgety or restless that you have been moving around a lot more than usual: not at all 9. Thoughts that you would be better off or of hurting yourself in some way: not at all Total score: 9 Depression Screening Interpretation: Positive Depression Screening Follow-up: Existing condition and In treatment 33544 - PHQ-9 Billing: Yes Source: Developed by Drs. Juan Francisco Fajardo, Bonny Burger, Jose Luis Brown and colleagues, with an educational yonatan from [employer]. Thrive Questionnaire Date Thrive assessed: 05/07/23 I am a: Patient What is your living situation today?: I have a steady place to live Within the past 12 months, did the food you bought not last and you didn't have the money to get more?: Never true Within the past 12 months, did you worry whether your food would run out before you got money to buy more?: Never true Do you have trouble paying for medicines?: No Do you have trouble getting transportation to medical appointments?: No Do you have trouble paying your heating and electricity bill?: No Do you have trouble taking care of your child, family member or friend?: No Do you have trouble with day-to-day activities such as bathing, preparing meals, shopping, managing finances, etc.?: No Are you currently unemployed and looking for a job?: No Are you interested in more education?: No Please select the resources that you would like help with: None Currently or been in a relationship where the following occur: no concerns reported AUDIT C Alcohol Use Questionnaire (AUDIT-C) 1. How often do you have a drink containing alcohol?: Monthly or less 2. How many drinks containing alcohol do you have on a typical day when you are drinking?: 1 or 2 3. How often do you have six or more drinks on one occasion?: Never Total Score: 1 Score Reviewed/Action Taken: Yes CLAUDY-7 AMB Questionnaire CLAUDY-7 Date CLAUDY - 7 assessed: 05/07/23 Feeling nervous, anxious, or on edge: 1 = Several days Not being able to stop or control worryin = Several days Worrying too much about different things: 2 = More than half the days Trouble relaxin = Nearly every day Being so restless that it is hard to sit still: 1 = Several days Becoming easily annoyed or irritable: 2 = More than half the days Feeling afraid as if something awful might happen: 0 = Not at all Total CLAUDY-7 score (0-4 normal; 5-9 mild; 10-14 moderate; 15-21 severe): 10 Source: Developed by Drs. Juan Francisco Fajardo, Bonny Burger, Jose Luis Brown and colleagues, with an educational yonatan from [employer]. CLAUDY-7 Assessment Billing CLAUDY-7 Assessment Tool: CLAUDY-7 Assessment 59477 Review of Systems Const Denies fatigue, Denies fever(s) and Denies headache(s) ENT Denies dysphagia, Denies dizziness, Denies otalgia, Denies headache(s), Denies odynophagia and Denies sore throat Card Denies chest pain, Denies palpitations and Denies dyspnea Resp Denies cough and Denies dyspnea GI Denies abdominal pain, Denies constipation, Denies dysphagia, Denies heartburn, Denies diarrhea, Reports nausea (occasional, mild; due to his Mounjaro Rx), Denies odynophagia and Denies vomiting Denies dysuria, Denies nocturia and Denies urinary frequency Musc Denies back pain Skin/Breast Denies rash Neuro Denies dizziness and Denies headache(s) Endo Denies fatigue and Denies palpitations Physical exam (Primary Care) Vital Signs: Last Vital Signs Pulse 83 05/07/23 15:46 BP 120/82 05/07/23 15:46 Pulse Ox 97 05/07/23 15:46 Oxygen Delivery Method Room Air 05/07/23 15:46 BMI result Body Mass Index 34.1 Tobacco/Smoking Status: Tobacco use Status Tobacco use date assessed 05/07/23 05/07/23 15:52 Patient Tobacco Use Status Never used Tobacco 05/07/23 15:52 e-Cigarette/Vaping Use Never Used 05/07/23 15:52 PHQ-9: PHQ-9 Score PHQ-9: Total score 9 05/07/23 15:52 Depression Screening Interpretation: Positive Depression Screening Follow-up: Existing condition and In treatment Thrive Assessment: Date of Thrive Assessment Date Thrive assessed 05/07/23 05/07/23 15:52 Currently or been in a relationship where the following occur: no concerns reported Const General: no acute distress and alert HENMT Ears: TM's normal bilaterally and EAC's normal Throat: Yes posterior oropharynx normal and Yes tonsils normal (no TP congestion) Neck Neck: Yes no lymphadenopathy and Yes supple Resp Auscultation: clear to auscultation bilaterally, no rales and no wheezes Cardio Rate: regular rate Rhythm: regular rhythm Heart sounds: no murmurs GI Palpation (GI): Soft to palpation and nontender Auscultation: normal bowel sounds Extrem General: Yes no clubbing, cyanosis or edema Results Reviewed Results Reviewed: Laboratory Tests 04/22/23 04/22/23 04/22/23 08:28 08:28 08:28 WBC 7.0 Hgb 15.2 Hct 47.1 Plt Count 250 Sodium 140 Potassium 4.5 Creatinine 1.01 Estimated GFR > 60 Fasting Glucose 157 H Hemoglobin A1c % 11.0 Calcium 9.4 AST 21 ALT 27 Triglycerides 141 Cholesterol 138 LDL Cholesterol, Calc 77 HDL Cholesterol 33 Vitamin B12 25-OH Vitamin D Total 40.2 TSH 1.99 Ur Specific [place] Urine Protein Urine Glucose (UA) Urine Blood Microalb/Creat Ratio 04/22/23 04/22/23 04/22/23 08:28 09:25 09:25 WBC Hgb Hct Plt Count Sodium Potassium Creatinine Estimated GFR Fasting Glucose Hemoglobin A1c % Calcium AST ALT Triglycerides Cholesterol LDL Cholesterol, Calc HDL Cholesterol Vitamin B12 624 25-OH Vitamin D Total TSH Ur Specific [place] >= 1.030 H Urine Protein Negative Urine Glucose (UA) >=1000 H Urine Blood Negative Microalb/Creat Ratio 7.1 Assessment and Plan Assessment & Plan (1) T2DM (type 2 diabetes mellitus): Code(s): E11.9 - Type 2 diabetes mellitus without complications Qualifiers: Diabetes mellitus watermaster insulin use: with watermaster use Diabetes mellitus complication status: with hyperglycemia Qualified Code(s): E11.65 - Type 2 diabetes mellitus with hyperglycemia; Z79.4 - senior care (current) use of insulin Plan: HgbA1c was at 11.0% on his labs done a couple of weeks ago but this was just before he was started by Dr. Fernandez on Mounjaro once a week (HgbA1c was at 9.0% previously) - goal is <7.0% Reinforced diabetic diet Continue Metformin ER 500 mg 2 tablets BID, Jardiance 25 mg QD, Levemir 25 units daily at bedtime and Humalog TID with meals per sliding scale He currently has a CGM to help monitor his blood sugars more efficiently and he has noticed a significant improvement in his daily average blood sugar over the past couple of weeks Follow up with Dr. Fernandez [place] [facility] as scheduled (2) Benign essential hypertension: Code(s): I10 - Essential (primary) hypertension Plan: Reinforced low sodium diet - goal is systolic BP of at least 130 mm or less Continue Lisinopril 5 mg QD (3) Pure hypercholesterolemia: Code(s): E78.00 - Pure hypercholesterolemia, unspecified Plan: Results of his labs done a couple of weeks ago reviewed and discussed with patient Reinforced low cholesterol diet Continue Atorvastatin 40 mg QD Will recheck his fasting lipids and labs in 4 months for follow up (4) Vitamin D deficiency: Code(s): E55.9 - Vitamin D deficiency, unspecified Plan: Continue Vitamin D2 95811 units once a week (5) Allergic rhinitis: Code(s): J30.9 - Allergic rhinitis, unspecified Qualifiers: Allergic rhinitis trigger: unspecified Allergic rhinitis seasonality: unspecified Qualified Code(s): J30.9 - Allergic rhinitis, unspecified Plan: Continue Azelastine 137 mg nasal spray BID PRN (6) Osteoarthritis of left knee: Code(s): M17.12 - Unilateral primary osteoarthritis, left knee Qualifiers: Osteoarthritis type: primary Qualified Code(s): M17.12 - Unilateral primary osteoarthritis, left knee Plan: X-rays of the left knee done last year showed (+) mild patellofemoral arthritis Schedules physical therapy sessions as needed to help with his knee pain whenever his work schedule allows him to and states that he does not need anything else for this at present (7) Back pain: Code(s): M54.9 - Dorsalgia, unspecified Qualifiers: Back pain location: low back pain Chronicity: unspecified Back pain laterality: unspecified Sciatica presence: without sciatica Qualified Code(s): M54.50 - Low back pain, unspecified Plan: Reinforced activity and weight-lifting restrictions to minimize aggravating his low back pain (8) Anxiety and depression: Code(s): F41.9 - Anxiety disorder, unspecified; F32.9 - Major depressive disorder, single episode, unspecified Plan: Continue Sertraline 50 mg QD - states that his anxiety and depression have been well-controlled on his Rx (9) Obesity (BMI 30-39.9): Code(s): E66.9 - Obesity, unspecified Plan: Reinforced diet/exercise as tolerated/lose weight Plan Follow up in 4 months Orders: Orders Comprehensive [place]. Panel Fast 4 Months E78.00 - Pure hypercholesterolemia, unspecified Hemoglobin A1c 4 Months E11.9 - Type 2 diabetes mellitus without complications Lipid Panel 4 Months E78.00 - Pure hypercholesterolemia, unspecified Complete Blood Count Auto Diff 4 Months I10 - Essential (primary) hypertension TSH reflex Free T4 4 Months E78.00 - Pure hypercholesterolemia, unspecified Vitamin D 25-OH Total 4 Months E55.9 - Vitamin D deficiency, unspecified Microalbumin, Random (w Creat) 4 Months E11.9 - Type 2 diabetes mellitus without complications UA CC w/rflx Micro + Cult 4 Months R30.0 - Dysuria Coding Level of Care Code Est Pt Level 3 (54337) Diagnoses T2DM (type 2 diabetes mellitus) E11.65; Z79.4 Diabetes mellitus watermaster insulin use: with watermaster use Diabetes mellitus complication status: with hyperglycemia Benign essential hypertension I10 Pure hypercholesterolemia E78.00 Vitamin D deficiency E55.9 Allergic rhinitis J30.9 Allergic rhinitis trigger: unspecified Allergic rhinitis seasonality: unspecified Osteoarthritis of left knee M17.12 Osteoarthritis type: primary Back pain M54.50 Back pain location: low back pain Chronicity: unspecified Back pain laterality: unspecified Sciatica presence: without sciatica Anxiety and depression F41.9; F32.9 Obesity (BMI 30-39.9) E66.9 Additional Codes CLAUDY-7 Assessment Billing - CLAUDY-7 Assessment Tool: CLAUDY-7 Assessment 85152 ([id number])
[2023-05-07 15:46] VITALS: BP 120/82; PULSE 83; O2SAT 97; BMI 34.1
== END 2023-05-07 16:17 | disposition home or self-care (01) ==
PROVIDERS: PCP Internal Medicine; Visit Provider Internal Medicine
DX: E11.65 Type 2 diabetes mellitus with hyperglycemia (principal); Z79.4 Long term (current) use of insulin; I10 Essential (primary) hypertension; E55.9 Vitamin D deficiency, unspecified; F41.9 Anxiety disorder, unspecified; F32.9 Major depressive disorder, single episode, unspecified; E78.00 Pure hypercholesterolemia, unspecified; M17.12 Unilateral primary osteoarthritis, left knee; J30.9 Allergic rhinitis, unspecified; M54.50 Low back pain, unspecified; E66.9 Obesity, unspecified
CPT/HCPCS: 99213

== ENCOUNTER 2023-07-08 08:26 | Outpatient (AMB) | payer SELFPAY ==
--- NOTE | 2023-07-08 09:17 | A.OFFVIS_ITS ---
Intake Intake Visit Reasons: DM/CONFIRMED Forensic Engineer Required: No Information Interpreted: non-clinical & clinical Accompanied by: Self / Same As Patient Allergies Penicillins Adverse Reaction (Verified 05/07/23 16:19) GI UPSET HPI Comprehensive Diabetes Asmnt Most Recent Diabetes Results: Hemoglobin A1c 12.2 % 05/16/19 Microalb/Creat Ratio 7.1 ug/mg cr 04/22/23 Cholesterol 138 mg/dL 04/22/23 HDL Cholesterol 33 mg/dL 04/22/23 Triglycerides 141 mg/dL 04/22/23 Creatinine 1.01 mg/dL (0.5-1.4) 04/22/23 Blood Urea Nitrogen 22 mg/dL (9-16) H 04/22/23 Sodium 140 mmol/L (135-145) 04/22/23 Potassium 4.5 mmol/L (3.3-5.1) 04/22/23 Chloride 104 mmol/L (96-108) 04/22/23 Carbon Dioxide 26 mmol/L (22-29) 04/22/23 Calcium 9.4 mg/dL (8.4-10.2) 04/22/23 AST 21 U/L (5-37) 04/22/23 ALT 27 U/L (0-40) 04/22/23 Total Protein 6.9 g/dL (6.5-8.0) 04/22/23 Albumin 4.3 g/dL (3.5-5.0) 04/22/23 [facility] Medical History Allergic rhinitis Anxiety and depression Benign essential hypertension Diabetes mellitus History of testicular cancer HLD (hyperlipidemia) HTN (hypertension) Left knee pain Obesity (BMI 30-39.9) Obesity due to excess calories Osteoarthritis of left knee Pure hypercholesterolemia T2DM (type 2 diabetes mellitus) Vitamin D deficiency Surgical History History of colonoscopy History of orchiectomy Hx of fasciotomy Hx of oral surgery Family History Father CVD (cardiovascular disease) Mother No problems noted. Other Mental health problem Social History Household Members: Spouse, Family and Children Housing: House Alcohol intake: former Patient Tobacco Use Status: Never used Tobacco e-Cigarette/Vaping Use: Never Used Second Hand Smoke Exposure: Yes service: Yes Current occupational status: employed Cognitive needs: No Hearing needs: No Vision needs: Yes Assessment & Plan Assessment & Plan (1) Diabetes mellitus: Code(s): E11.9 - Type 2 diabetes mellitus without complications Qualifiers: Diabetes mellitus type: type 2 Diabetes mellitus senior care insulin use: with senior care use Diabetes mellitus complication status: without complication Qualified Code(s): E11.9 - Type 2 diabetes mellitus without complications; Z79.4 - longterm (current) use of insulin Plan: Diabetes self-management education and support participation record Assessment/scale: 1= needs instructed? 2= needs review? 3= comp rehend keep point? 4= demonstrates understanding/ competent? NC= Not Covered Topics Learning Objective: Initial visit Initial or post srvc Initial or post srvc Initial or post srvc Initial or post srvc Initial or post srvc Post srvc Comments Pre Edu-assessment/plan Outcome or reassess Outcome or reassess Outcome or reassess Outcome or reassess Outcome or reassess Outcome or reassess Diabetes pathophysiology 2 Healthy eating 2 Being active 2 Taking medication 2 Monitoring glucose 2 Acute complication 1 Chronic complicated 1 Lifestyle and healthy coping 1 Diabetes distress in support 1 ?Diabetes pathophysiology: ?Defined d iabetes med identify own type of diabetes; list 3 options for treating diabetes Healthy eating: ?Described effect of type, amount and ?timing of food on blood glucose; list 3 methods for planning meal Being active: ?State effect of exercise on blood glucose level Taking medication: ?State effect of diabetes medications on diabetes; name diabetes medications taking, action and side effects Monitoring glucose: ?Identify recommended blood glucose targets and personal target Acute complication: ?List symptoms and treatment of hyper and hypoglycemia, DKA, sick day guidelines and guidelines for severe weather or situations of crisis and diabetes supply manage Chronic complication: ?To find the relationship of blood glucose levels to long- term complications of diabetes in screening and preventative measures Lifestyle and healthy coping: ?Described lifestyle and healthy coping strategies to rule out diabetes self-management Diabetes to stress and support: ?Recognize Diabetes to stress and be able to identified support options Learning objectives: The patient was provided with verbal and written education on the following topics as outlined below. The patient met all learning objectives and was able to verbalize understanding and provide teach back of education topics discussed . The patient was provided with the opportunity to ask questions and all questions were answered. Patient Assessment Assess patient education level/literacy/barriers Patient questions/concerns, patient is currently taking Jardiance 25mg, metformin 1000 mg b.i.d., Tresiba 25 units daily, Mounjaro 5 mg week. Patient has recently had a change of insurance so he has stretched out his Mounjaro doses for more than a week He does report since starting Mounjaro he has not been using Humalog before meals Patient's last A1c in April 2023 11.3% After review of glucose data on Dexcom G7 patient glucose numbers have made significant improvement What is Diabetes? Pathophysiology How the body produces and uses insulin Identify type of DM Risk factors Signs of Diabetes Brief overview of Diabetes Management Monitoring blood sugar Following a meal plan Regular exercise Maintaining a healthy weight Taking medication as needed Members of the care team (PCP, RN, MA, RD, CDE, single pass soil stabilizer operator) Blood glucose monitoring When/how often to test Target blood sugar ranges Patient using Dexcom G7 for glucose testing Patient above target 29% Patient at target 71% Patient below target 0% Average glucose for the past 2 weeks 162 mg/dL Introduction to Nutrition Importance of healthy diet in managing DM Diet is personalized to individual preference Review patient?s regular diet/food preferences Who prepares meals/does food shopping/ Dining out?/ Barriers? How diet effects glucose Eating 3 balanced meals a day with small, healthy snacks between meals Review food groups Carbohydrates: What is a carbohydrate/Which food/food groups are considered carbohydrates Effect of carbohydrates on blood glucose Portion sizes Reading food labels Basic carb counting (if applicable per nursing assessment) Plate method Meal planning Recommendations: Follow plate method, consistent carbs and read nutritional labels. Smart Goal: Patient will add protein, fiber, healthy fat to carbohydrate snacks Patient Response to instructions: Comprehension of Instructions: Fair Readiness to make changes: Contemplation How confident they feel about making changes: Positive Patient Instructions: Include regular daily activity. ADA recommends 30 minutes of exercise 5 days a week. Weight loss talk to PCP or Chief Accounting Officer before starting new plan. Test blood sugar as directed; Fasting and 2hpp largest meal. Watch trends in results. Utilize results and to assess how food, physical activity and medications affect blood sugar results. Bring glucometer or CGM to next visit. Be knowledgeable about diabetes medication, its action, side effects, efficacy, toxicity, prescribed dosage, appropriate timing and frequency of administration, effect of missed and delayed doses and instructions for storage, travel and safety. Problem solving techniques to monitor hypo/hyperglycemia episodes and treatments. Reduce risk reduction behaviors, smoking cessation, regular eye, foot and dental examinations. Patient will follow-up with morning babysitter in 2 months Coding Level of Care Code Est Pt Level 1 (57020) Diagnoses Type 2 diabetes mellitus without complication, with long-term current use of insulin E11.9; Z79.4 Diabetes mellitus type: type 2 Diabetes mellitus termite inspector insulin use: with termite inspector use Diabetes mellitus complication status: without complication
== END 2023-07-08 09:21 | disposition home or self-care (01) ==
PROVIDERS: PCP Internal Medicine; Visit Provider Registered Nurse Diabetes Educator
DX: E11.9 Type 2 diabetes mellitus without complications (principal); Z79.4 Long term (current) use of insulin

== ENCOUNTER → 2023-07-08 08:26 | Outpatient (BNVA) | payer BC, SELFPAY | PROVIDERS: PCP Internal Medicine; Visit Provider Registered Nurse Diabetes Educator | DX: E11.9 Type 2 diabetes mellitus without complications (principal); Z91.85 Personal history of military service; Z79.4 Long term (current) use of insulin | CPT/HCPCS: 99211 ==

== ENCOUNTER 2023-07-20 08:30 | Outpatient (AMB) | payer BC, SELFPAY ==
[2023-07-20 08:38] VITALS: BMI 33.4
--- NOTE | 2023-07-20 08:38 | A.OFFVIS_ITS ---
Intake VS Expanded 07/20/23 08:38 Height 5 ft 6 in Weight 207 lb 3.752 oz BMI 33.4 Intake Visit Reasons: DM Allergies Penicillins Adverse Reaction (Verified 05/07/23 16:19) GI UPSET HPI Nutrition Presentation Details Pt presents for MNT for T2DM. Pt was referred by Dr. Fernandez, finance vice president Food frequency questionnaire dairy: 2-3x/wk fish: not including Fruits: 0-2 a day Starches: Greater than 25 have servings per day Vegetables: 2 servings in the evening Alcohol: Denies Smoking: Denies Patient reports having increased appetite throughout the day and often times finds himself snacking DYN-Xaeazzz-Gf.Jeanor Equation Height 5 ft 6 in Weight 207 lb Resting Metabolic Rate 1734.91 Calculated Activity Level Sedentary Calories Needed to Maintain Weight 2081.89 Diagnosis Nutrition problem #1 excessive energy intake As related to (etiology) #1 diagnosis As evidenced by (sign/symptom) #1 food recall Monitoring/Goals Nutrition problem monitoring total PRO intake, total CHO intake and oral fluids Learning/Education Readiness to learn good Stages of change preparation Most Recent Diabetes Results: Microalb/Creat Ratio 7.1 ug/mg cr 04/22/23 Cholesterol 138 mg/dL 04/22/23 HDL Cholesterol 33 mg/dL 04/22/23 Triglycerides 141 mg/dL 04/22/23 Creatinine 1.01 mg/dL (0.5-1.4) 04/22/23 Blood Urea Nitrogen 22 mg/dL (9-16) H 04/22/23 Sodium 140 mmol/L (135-145) 04/22/23 Potassium 4.5 mmol/L (3.3-5.1) 04/22/23 Chloride 104 mmol/L (96-108) 04/22/23 Carbon Dioxide 26 mmol/L (22-29) 04/22/23 Calcium 9.4 mg/dL (8.4-10.2) 04/22/23 AST 21 U/L (5-37) 04/22/23 ALT 27 U/L (0-40) 04/22/23 Total Protein 6.9 g/dL (6.5-8.0) 04/22/23 Albumin 4.3 g/dL (3.5-5.0) 04/22/23 [facility] Medical History Allergic rhinitis Anxiety and depression Benign essential hypertension Diabetes mellitus History of testicular cancer HLD (hyperlipidemia) HTN (hypertension) Left knee pain Obesity (BMI 30-39.9) Obesity due to excess calories Osteoarthritis of left knee Pure hypercholesterolemia T2DM (type 2 diabetes mellitus) Vitamin D deficiency Surgical History History of colonoscopy History of orchiectomy Hx of fasciotomy Hx of oral surgery Family History Father CVD (cardiovascular disease) Mother No problems noted. Other Mental health problem Social History Household Members: Spouse, Family and Children Housing: House Alcohol intake: former Patient Tobacco Use Status: Never used Tobacco e-Cigarette/Vaping Use: Never Used Second Hand Smoke Exposure: Yes service: Yes Current occupational status: employed Cognitive needs: No Hearing needs: No Vision needs: Yes Assessment & Plan Assessment & Plan (1) T2DM (type 2 diabetes mellitus): Code(s): E11.9 - Type 2 diabetes mellitus without complications Qualifiers: Diabetes mellitus intermediate card tender insulin use: with intermediate card tender use Diabetes mellitus complication status: with hyperglycemia Qualified Code(s): E11.65 - Type 2 diabetes mellitus with hyperglycemia; Z79.4 - terminologist (current) use of insulin Plan: 94 Est kcal needs as per MSJ: 2100 (40% carb, 30% protein/fat) Est fluid needs as per 25-30 ml/d: 2350 Est prot per day as per 1 g/kg bw: 94 Recommend fiber intake : 8-10 g per day and gradually increase to 25-28 g per day for women and 35-38 g for men or as tolerated Recommend sodium intake per day : less than 2000 mg Educated patient on: ( R = reviewed V = verbalizes understanding N/R = needs review N/A = not applicable * Food sources of carbohydrate, adequate serving sizes and its role in various health conditions: R * Differences between complex carbohydrates a simple carbohydrates, role of fiber in diet: R * Differences between types of fats and role in diet (mono on saturated fat fatty acids, saturated fatty acids, trans fats): R * Food sources of sodium in salt and healthy modifications for heart health in kidney health: R * Vitamins and minerals: R * Healthy plate method concept: R * Physical activity: Benefits a precaution: R * Hypoglycemia protocol (rule of 15): R * Dietary prevention of Hyperglycemia: R Patient Instructions: Follow healthy plate method it add Dinner Choose yogurt, fruit as a snack, read your food labels reduced total carbohydrate to 20 g at snack time, limit to 3 a day Practice mindful eating Coding Level of Care Code Nutr Indiv Intake (21072) Diagnoses Type 2 diabetes mellitus with hyperglycemia, with long-term current use of insulin E11.65; Z79.4 Diabetes mellitus group home insulin use: with intermediate card tender use Diabetes mellitus complication status: with hyperglycemia Time Spent (min) 30
[2023-07-26 14:55] VITALS: BMI 33.4
== END 2023-07-20 09:12 | disposition home or self-care (01) ==
PROVIDERS: PCP Internal Medicine; Visit Provider Dietitian, Registered
DX: E11.65 Type 2 diabetes mellitus with hyperglycemia (principal); Z79.4 Long term (current) use of insulin

== ENCOUNTER → 2023-07-20 08:30 | Outpatient (BNVA) | payer BC, SELFPAY | PROVIDERS: PCP Internal Medicine; Visit Provider Dietitian, Registered | DX: E66.09 Other obesity due to excess calories (principal); E11.65 Type 2 diabetes mellitus with hyperglycemia; Z68.33 Body mass index [BMI] 33.0-33.9, adult; Z91.85 Personal history of military service; Z79.4 Long term (current) use of insulin; Z71.3 Dietary counseling and surveillance | CPT/HCPCS: 97802 ==

== ENCOUNTER 2023-08-02 08:09 | Outpatient (AMB) | payer BC, SELFPAY ==
--- NOTE | 2023-08-02 08:12 | A.OFFVIS_ITS ---
Intake Vital Signs 08/02/23 08:14 Height 5 ft 6 in Weight 204 lb 2.369 oz BMI 32.9 BP 110/98 H Blood Pressure Location Rt brachial Position Sitting Pulse 98 Pulse Source Pulse Oximeter Intake Visit Reasons: DM Intake Note: Patient present today to follow up on Type 2 Diabetes Mellitus. Patient receives DME supplies through: Pharmacy Last Diabetic Eye exam: Over 1 year Last Podiatry Visit: Does not see a Brake Machine Operator Random Glucose: 130 mg/dl HgA1C: 7.4% Sign Builder Required: No Accompanied by: Self / Same As Patient Allergies Penicillins Adverse Reaction (Verified 08/02/23 08:15) GI UPSET Medication List - Last Reconciled 08/02/23 by Juan Francisco Fernandez MD atorvastatin 40 mg PO DAILY 30 days azelastine 2 sprays intranasal BID blood sugar diagnostic (Accu-Chek Guide test strips) As directed blood-glucose meter (Accu-Chek Guide Me Glucose Meter) As directed blood-glucose sensor (Dexcom G7 Sensor device) As directed change every 10 days cholecalciferol (vitamin D3) 50 mcg PO DAILY 30 days Dexcom G6 Transmitter (blood-glucose transmitter) As directed NS empagliflozin (Jardiance) 25 mg PO DAILY 90 days flash glucose scanning reader As directed ibuprofen 800 mg PO Q8H PRN 15 days insulin degludec (Tresiba FlexTouch U-100 insulin) 25 units (0.25 mL) subcut BEDTIME insulin lispro (Humalog KwikPen (U-100) Insulin) 5 - 9 units (0.05 - 0.09 mL) subcut TID 90 days lisinopril 5 mg PO DAILY 90 days metformin ER 1,000 mg (2 x 500 mg) PO BID 30 days Novolog FlexPen U-100 Insulin (insulin aspart U-100) Inject 5 to 9 units subcutaneously TID with meals as instructed; NS [Pen needle 32 gauge x 4/32 (P3BD Ultra-Fine Sonal Pen Needle) use as directed with insulin pen 4 times a day (with meals and at bedtime)] pen needle, diabetic As directed pen needle, diabetic (BD Ultra-Fine Sonal Pen Needle) use as directed 4 times a day before meal and at bedtime; sildenafil 50 mg PO DAILY PRN tirzepatide (Mounjaro) 5 mg (0.5 mL) subcut QWEEK HPI HPI Comments History of Present Illness Details Patient is a 52-year-old male with DM type 2 diagnosed 2014, who presents for management of diabetes. Patient was last seen 11/27/21 by Felicity Zaman NP Past medical history: Diabetes type 2, hyperlipidemia, HTN Micro and macrovascular complications: None known Diabetes medications: Metformin 1000 mg twice a day, Jardiance 25 mg daily . Mounjaro 5 mg Qwklt Tresiba 25 units at bedtime. Humalog 5 units small/reg meal, 7 units large meal, + 2 units for bg over 200. ( not taking Humalog) He was intolerant of Victoza due to GI distress. Continuous glucose monitoring: Dexcom download from 07/20/2023- 08/02/2023 shows average glucose to be 170 with standard deviations 35. The sensor is being use 36% of the time. 69% range with 31% hyperglycemia and no hypoglycemia. Pattern shows increasing point of care after breakfast with persistent hyperglycemia throughout day r. Symptoms reported: denies numbness, tingling, cramping in lower extremities Hypoglycemia: denies Hyperglycemia: denies daytime urinary frequency, + nocturia, denies polydypsia Exercise: limited due to arthritis in left knee, limited to 1/2 mile. Is currently considering purchasing an indoor bicycle. Magazine Supervisor - CDE education: has seen window glazier helper Brake Machine Operator: denies Dental exam: goes every 6 months Ophthalmology evaluation: needs to make appt - ou no retinopathy Laboratory Tests Does complain of shortness of breath on exertio 06/04/21 06/04/21 06/04/21 10:50 10:50 10:50 Creatinine 0.84 Estimated GFR > 60 Hemoglobin A1c % 8.5 Triglycerides 94 Cholesterol 156 LDL Cholesterol, C alc 93 HDL Cholesterol 45 25-OH Vitamin D To inocente TSH 1.54 Microalb/Creat Rat io 8.2 06/04/21 10:50 Creatinine Estimated GFR Hemoglobin A1c % Triglycerides Cholesterol LDL Cholesterol, C alc HDL Cholesterol 25-OH Vitamin D To inocente 34.6 TSH Microalb/Creat Rat io [facility] Medical History Allergic rhinitis Anxiety and depression Benign essential hypertension Diabetes mellitus History of testicular cancer HLD (hyperlipidemia) HTN (hypertension) Left knee pain Obesity (BMI 30-39.9) Obesity due to excess calories Osteoarthritis of left knee Pure hypercholesterolemia T2DM (type 2 diabetes mellitus) Vitamin D deficiency Surgical History History of colonoscopy History of orchiectomy Hx of fasciotomy Hx of oral surgery Family History Father CVD (cardiovascular disease) Mother No problems noted. Other Mental health problem Household Members: Spouse, Family and Children Housing: House Alcohol intake: former Patient Tobacco Use Status: Never used Tobacco e-Cigarette/Vaping Use: Never Used Second Hand Smoke Exposure: Yes service: Yes Current occupational status: employed Cognitive needs: No Hearing needs: No Vision needs: Yes Physical Exam Vital Signs: Last Vital Signs Pulse 98 08/02/23 08:14 BP 110/98 H 08/02/23 08:14 BMI result Body Mass Index 32.9 Absence of Cushingoid features. Absence of acromegalic features. Neck exam reveals nl size thyroid about 15 gms. No thyroid nodules palpable. No carotid bruits present. Lungs CTA. Heart S1 S2, Reg R/R. No M/R/ G. Skin exam reveals absence of vitiligo or acanthosis nigricans. Abdominal exam reveals Soft NT/ND with NA BS. No organomegaly present. Neck Other: . Extrem Other: Visual exam of foot performed. No ulcerations or open lesions. No onchomycosis, no callouses.Pulses 2 + distally Sensation intact to monofilament exam. Vibratory sensation sensed is intact with 128 Hz tuning fork Results Reviewed Results Reviewed: Laboratory Last Values Glucose (Clinic) 130 mg/dL (60-115) H 08/02/23 08:22 Assessment & Plan Assessment & Plan (1) Diabetes mellitus: Code(s): E11.9 - Type 2 diabetes mellitus without complications Qualifiers: Diabetes mellitus complication status: without complication Diabetes mellitus middle or intermediate school principal insulin use: with halfway use Diabetes mellitus type: type 2 Qualified Code(s): E11.9 - Type 2 diabetes mellitus without complications; Z79.4 - supervisor intermediates (current) use of insulin (2) T2DM (type 2 diabetes mellitus): Code(s): E11.9 - Type 2 diabetes mellitus without complications Qualifiers: Diabetes mellitus complication status: with hyperglycemia Diabetes mellitus halfway insulin use: with halfway use Qualified Code(s): E11.65 - Type 2 diabetes mellitus with hyperglycemia; Z79.4 - supervisor intermediates (current) use of insulin Plan: This is a 52-year-old white male with a history of type 2 diabetes being treated with Jardiance, metformin, Mounjaro and basal-bolus insulin with improving glycemic control and no known microvascular or macrovascular complication. Plan is to increase theMounjaro to 7.5 mg Qwkly Told patient to report any hypoglycemia for adjustment of insulin. Told to follow-up with the para educator. Also told to follow-up with primary care regarding shortness of breath on exertion Orders: Orders AMB Hemoglobin A1c Today E11.9 - Type 2 diabetes mellitus without complications Medications: New tirzepatide (Mounjaro) 7.5 mg (0.5 mL) subcut QWEEK 2 mL 5RF Refilled [Pen needle 32 gauge x 4/32 (P3BD Ultra-Fine Sonal Pen Needle)] use as directed with insulin pen 4 times a day (with meals and at bedtime) 120 ea 12RF E11.9 - Type 2 diabetes mellitus without complications, Z79.4 - supervisor intermediates (current) use of insulin Discontinued tirzepatide (Mounjaro) Discontinued Reason: Doctor's Order 5 mg (0.5 mL) subcut QWEEK 2 mL 5RF Coding Level of Care Code Est Pt Level 4 (41029) Diagnoses Type 2 diabetes mellitus without complication, with long-term current use of insulin E11.9; Z79.4 Diabetes mellitus complication status: without complication Diabetes mellitus halfway insulin use: with halfway use Diabetes mellitus type: type 2 Type 2 diabetes mellitus with hyperglycemia, with long-term current use of insulin E11.65; Z79.4 Diabetes mellitus complication status: with hyperglycemia Diabetes mellitus middle or intermediate school principal insulin use: with middle or intermediate school principal use
[2023-08-02 08:14] VITALS: BP 110/98; PULSE 98; BMI 32.9
[2023-08-02 08:26] LABS: Glucose, Whole Blood 130 mg/dL (60-115)
== END 2023-08-02 08:46 | disposition home or self-care (01) ==
PROVIDERS: PCP Internal Medicine; Visit Provider Internal Medicine Endocrinology, Diabetes & Metabolism
DX: E11.9 Type 2 diabetes mellitus without complications (principal); Z79.4 Long term (current) use of insulin; E11.65 Type 2 diabetes mellitus with hyperglycemia
CPT/HCPCS: 99214

== ENCOUNTER → 2023-08-02 08:09 | Outpatient (BNVA) | payer BC, SELFPAY | PROVIDERS: PCP Internal Medicine; Visit Provider Internal Medicine Endocrinology, Diabetes & Metabolism | DX: E11.65 Type 2 diabetes mellitus with hyperglycemia (principal); Z79.4 Long term (current) use of insulin | CPT/HCPCS: 82947; 83036 ==

== ENCOUNTER 2023-09-07 14:26 | Outpatient (AMB) | payer BC, SELFPAY ==
--- NOTE | 2023-09-07 14:30 | A.OFFVIS_ITS ---
Intake VS Expanded 09/07/23 14:31 Height 5 ft 6 in Weight 207 lb 10.807 oz BMI 33.5 Intake Visit Reasons: T2DM/LVM Allergies Penicillins Adverse Reaction (Verified 08/02/23 08:15) GI UPSET HPI Nutrition Presentation Details Pt presents for nutrition f/u for T2DM Incorporating physical activity at work, very active daily > 1 hr /day Fluids: water: 12-16 oz/d, coffee 8-12 oz/d Working on meal planning , mindful of portion sizes MVI: not including Most Recent Diabetes Results: Microalb/Creat Ratio 7.1 ug/mg cr 04/22/23 Cholesterol 138 mg/dL 04/22/23 HDL Cholesterol 33 mg/dL 04/22/23 Triglycerides 141 mg/dL 04/22/23 Creatinine 1.01 mg/dL (0.5-1.4) 04/22/23 Blood Urea Nitrogen 22 mg/dL (9-16) H 04/22/23 Sodium 140 mmol/L (135-145) 04/22/23 Potassium 4.5 mmol/L (3.3-5.1) 04/22/23 Chloride 104 mmol/L (96-108) 04/22/23 Carbon Dioxide 26 mmol/L (22-29) 04/22/23 Calcium 9.4 mg/dL (8.4-10.2) 04/22/23 AST 21 U/L (5-37) 04/22/23 ALT 27 U/L (0-40) 04/22/23 Total Protein 6.9 g/dL (6.5-8.0) 04/22/23 Albumin 4.3 g/dL (3.5-5.0) 04/22/23 [facility] Medical History Allergic rhinitis Anxiety and depression Benign essential hypertension Diabetes mellitus History of testicular cancer HLD (hyperlipidemia) HTN (hypertension) Left knee pain Obesity (BMI 30-39.9) Obesity due to excess calories Osteoarthritis of left knee Pure hypercholesterolemia T2DM (type 2 diabetes mellitus) Vitamin D deficiency Surgical History History of colonoscopy Hx of oral surgery Hx of fasciotomy History of orchiectomy Family History Father CVD (cardiovascular disease) Mother No problems noted. Other Mental health problem Social History Household Members: Spouse, Family and Children Housing: House Alcohol intake: former Patient Tobacco Use Status: Never used Tobacco e-Cigarette/Vaping Use: Never Used Second Hand Smoke Exposure: Yes service: Yes Current occupational status: employed Cognitive needs: No Hearing needs: No Vision needs: Yes Assessment & Plan Assessment & Plan (1) T2DM (type 2 diabetes mellitus): Code(s): E11.9 - Type 2 diabetes mellitus without complications Qualifiers: Diabetes mellitus complication status: with hyperglycemia Diabetes mellitus half-way insulin use: with termite control representative use Qualified Code(s): E11.65 - Type 2 diabetes mellitus with hyperglycemia; Z79.4 - snf (current) use of insulin Plan: wk:: 94 kg Est kcal needs as per MSJ: 2100 (40% carb, 30% protein/fat) Est fluid needs as per 25-30 ml/d: 2350 Est prot per day as per 1 g/kg bw: 94 Recommend fiber intake : 8-10 g per day and gradually increase to 25-28 g per day for women and 35-38 g for men or as tolerated Recommend sodium intake per day : less than 2000 mg Educated patient on: ( R = reviewed V = verbalizes understanding N/R = needs review N/A = not applicable * Food sources of carbohydrate, adequate serving sizes and its role in various health conditions: R * Differences between complex carbohydrates a simple carbohydrates, role of fiber in diet: R * Differences between types of fats and role in diet (mono on saturated fat fatty acids, saturated fatty acids, trans fats): R * Food sources of sodium in salt and healthy modifications for heart health in kidney health: R * Vitamins and minerals: R * Healthy plate method concept: R * Physical activity: Benefits a precaution: R * Hypoglycemia protocol (rule of 15): R * Dietary prevention of Hyperglycemia: R Plan Follow healthy plate method keep hydrated by having water with meals/snacks , goal 8-12 cups of fluids per day (choose no sugar or low sugar liquids) Be mindful of total carb at meal, aim at less than 70 g carb at meals time Medications: Discontinued tirzepatide Discontinued Reason: Doctor's Order 7.5 mg (0.5 mL) subcut QWEEK 2 mL 5RF Coding Level of Care Code Nutr Indiv Subseq (89712) Diagnoses Type 2 diabetes mellitus with hyperglycemia, with long-term current use of insulin E11.65; Z79.4 Diabetes mellitus complication status: with hyperglycemia Diabetes mellitus termite control representative insulin use: with termite control representative use Time Spent (min) 30
[2023-09-07 14:31] VITALS: BMI 33.5
== END 2023-09-07 15:09 | disposition home or self-care (01) ==
PROVIDERS: PCP Internal Medicine; Visit Provider Dietitian, Registered
DX: E11.65 Type 2 diabetes mellitus with hyperglycemia (principal); Z79.4 Long term (current) use of insulin

== ENCOUNTER 2023-09-07 14:26 | Outpatient (AMB) | payer BC, SELFPAY ==
--- NOTE | 2023-09-07 15:13 | A.OFFVIS_ITS ---
Intake Intake Visit Reasons: DM Suture Polisher Required: No Accompanied by: Self / Same As Patient Allergies Penicillins Adverse Reaction (Verified 08/02/23 08:15) GI UPSET HPI Comprehensive Diabetes Asmnt Most Recent Diabetes Results: Hemoglobin A1c 12.2 % 05/16/19 Microalb/Creat Ratio 7.1 ug/mg cr 04/22/23 Cholesterol 138 mg/dL 04/22/23 HDL Cholesterol 33 mg/dL 04/22/23 Triglycerides 141 mg/dL 04/22/23 Creatinine 1.01 mg/dL (0.5-1.4) 04/22/23 Blood Urea Nitrogen 22 mg/dL (9-16) H 04/22/23 Sodium 140 mmol/L (135-145) 04/22/23 Potassium 4.5 mmol/L (3.3-5.1) 04/22/23 Chloride 104 mmol/L (96-108) 04/22/23 Carbon Dioxide 26 mmol/L (22-29) 04/22/23 Calcium 9.4 mg/dL (8.4-10.2) 04/22/23 AST 21 U/L (5-37) 04/22/23 ALT 27 U/L (0-40) 04/22/23 Total Protein 6.9 g/dL (6.5-8.0) 04/22/23 Albumin 4.3 g/dL (3.5-5.0) 04/22/23 [facility] Medical History Allergic rhinitis Anxiety and depression Benign essential hypertension Diabetes mellitus History of testicular cancer HLD (hyperlipidemia) HTN (hypertension) Left knee pain Obesity (BMI 30-39.9) Obesity due to excess calories Osteoarthritis of left knee Pure hypercholesterolemia T2DM (type 2 diabetes mellitus) Vitamin D deficiency Surgical History History of colonoscopy Hx of oral surgery Hx of fasciotomy History of orchiectomy Family History Father CVD (cardiovascular disease) Mother No problems noted. Other Mental health problem Social History Household Members: Spouse, Family and Children Housing: House Alcohol intake: former Patient Tobacco Use Status: Never used Tobacco e-Cigarette/Vaping Use: Never Used Second Hand Smoke Exposure: Yes service: Yes Current occupational status: employed Cognitive needs: No Hearing needs: No Vision needs: Yes Assessment & Plan Assessment & Plan (1) T2DM (type 2 diabetes mellitus): Code(s): E11.9 - Type 2 diabetes mellitus without complications Qualifiers: Diabetes mellitus terminal operator insulin use: with terminal operator use Diabetes mellitus complication status: with hyperglycemia Qualified Code(s): E11.65 - Type 2 diabetes mellitus with hyperglycemia; Z79.4 - assisted (current) use of insulin Plan: Diabetes self-management education and support participation record Assessment/scale: 1= needs instructed? 2= needs review? 3= comprehend keep point? 4= demonstrates understanding/ competent? NC= Not Covered Topics Learning Objective: Initial visit Initial or post srvc Initial or post srvc Initial or post srvc Initial or post srvc Initial or post srvc Post srvc Comments Pre Edu-assessment/plan Outcome or reassess Outcome or reassess Outcome or reassess Outcome or reassess Outcome or reassess Outcome or reassess Diabetes pathophysiology 2 3 Healthy eating 2 3 Being active 2 3 Taking medication 2 3 Monitoring glucose 2 3 Acute complication 1 Chronic complicated 1 Lifestyle and healthy coping 1 2 Diabetes distress in support 1 2 ?Diabetes pathophysiology: ?Defined diabetes med identify own type of diabetes; list 3 options for treating diabetes Healthy eating: ?Described effect of type, amount and ?timing of food on blood glucose; list 3 methods for planning meal Being active: ?State effect of exercise on blood glucose level Taking medication: ?State effect of diabetes medications on diabetes; name diabetes medications taking, action and side effects Monitoring glucose: ?Identify recommended blood glucose targets and personal target Acute complication: ?List symptoms and treatment of hyper and hypoglycemia, DKA, sick day guidelines and guidelines for severe weather or situations of crisis and diabetes supply manage Chronic complication: ?To find the relationship of blood glucose levels to long- term complications of diabetes in screening and preventative measures Lifestyle and healthy coping: ?Described lifestyle and healthy coping strategies to rule out diabetes self-management Diabetes to stress and support: ?Recognize Diabetes to stress and be able to identified support options Learning objectives: The patient was provided with verbal and written education on the following topics as outlined below. Assess patient education level/literacy/barriers Patient questions/concerns, patient's last A1c on 08/02/23 7.4%, down from 11% in April 2023 Patient reports goal to have A1c at 5.9%, patient uses Dexcom G7 sensor Average glucose for the past 30 days 146 mg/dL Patient above target 21% Patient at target 78% Patient below target 1% Patient had increased Mounjaro from 5 mg to 7.5 mg, however was unable to handle higher dose. So will reduce Mounjaro back to 5 mg Patient previously had stopped Humalog And now has stopped Tresiba Patient discussed to read starting Tresiba in order to help get average glucose data, recommended to patient if he decides to restart Tresiba he should not go to 25 units, start with 10 units to see if it increases risk of hypoglycemia Discussed patient the importance adding fiber and protein to evening snacks to help with pattern of hyperglycemia in the evenings Patient also reports he is interested in starting to go back to the gym with his children The patient met all learning objectives and was able to verbalize understanding and provide teach back of education topics discussed . The patient was provided with the opportunity to ask questions and all questions were answered. Topics covered in today?s session included: Medications (If applicable) * Name of medication? * Dosing/administration instructions? * Mechanism of action? * Potential side effects? * Potential adverse reaction and appropriate treatment? * Review onset, peak, duration Assess for concerns re: insurance coverage, cost, barriers to compliance Insulin/Injectables (If applicable) * Storage/care of insulin?? * Injection sites? * Site rotation? * Onset, peak, duration * Drawing up insulin? * Injecting insulin/other injectables? * Sharps disposal Continuous blood glucose monitoring (if applicable) Hypoglycemia and Hyperglycemia * Signs and symptoms? * Causes?? * Treatment? * Preventing hypoglycemia? * When to seek medical attention * Blood glucose targets and how you feel when your blood glucose is in and out of your target ranges. * Monitoring and knowing your A1C. * What can make blood glucose go up and down and preventing high and low blood glucose. * Review of blood sugar targets in expected goal range and outside of expected goal range. * Problem solving and preventing hyper/hypoglycemia. * Sick day management of diabetes. * Using blood sugar results in decision making process in managing diabetes. ?Patient was receptive to information provided and participated in the discussion. Asked?appropriate questions and demonstrated good understanding of the topics discussed.? ? Educational Materials: The patient was provided with the following written educational materials: Target Goal handout Smart Goal Assessment:? Patient will add fiber and protein to carbohydrate snack and meals Pt met goal more than 50% New Smart Goal: Patient will continue to work on reducing carbohydrate intake at snacks in the evening Patient Response to instructions: Comprehension of Instructions: Good Readiness to make changes:? Action How confident they feel about making changes: Good Medications: Discontinued tirzepatide (Mounjaro) Discontinued Reason: Doctor's Order 7.5 mg (0.5 mL) subcut QWEEK 2 mL 5RF Coding Level of Care Code Est Pt Level 1 (57720) Diagnoses Type 2 diabetes mellitus with hyperglycemia, with long-term current use of insulin E11.65; Z79.4 Diabetes mellitus terminal operator insulin use: with prison use Diabetes mellitus complication status: with hyperglycemia
== END 2023-09-07 15:45 | disposition home or self-care (01) ==
PROVIDERS: PCP Internal Medicine; Visit Provider Registered Nurse Diabetes Educator
DX: E11.65 Type 2 diabetes mellitus with hyperglycemia (principal); Z79.4 Long term (current) use of insulin

== ENCOUNTER → 2023-09-07 14:26 | Outpatient (BNVA) | payer BC, SELFPAY | PROVIDERS: PCP Internal Medicine; Visit Provider Registered Nurse Diabetes Educator | DX: E11.65 Type 2 diabetes mellitus with hyperglycemia (principal); Z79.4 Long term (current) use of insulin; Z71.3 Dietary counseling and surveillance | CPT/HCPCS: 97803; 99211 ==

== ENCOUNTER 2023-12-01 14:35 | Outpatient (AMB) | payer BC, SELFPAY ==
[2023-12-01 14:39] VITALS: BP 122/70; PULSE 82; BMI 32.4
--- NOTE | 2023-12-01 14:39 | A.OFFVIS_ITS ---
Intake Vital Signs 12/01/23 14:39 Height 5 ft 6 in Weight 200 lb 13.458 oz BMI 32.4 BP 122/70 Blood Pressure Location Lt brachial Position Sitting Pulse 82 Pulse Source Pulse Oximeter Intake Visit Reasons: DM-confirmed Intake Note: Patient presents today to follow up on D2MT. Last Diabetic Eye exam: It's been over 1 year but has upcoming appt in December. Last Podiatry Visit: Doesn't have one. Random Glucose: 289 mg/dl HgA1c: 7.8% Conference Translator Required: No Accompanied by: Self / Same As Patient Allergies Penicillins Adverse Reaction (Verified 12/01/23 14:44) GI UPSET Medication List - Last Reconciled 12/01/23 by Juan Francisco Fernandez MD atorvastatin 40 mg PO DAILY 30 days azelastine 2 sprays intranasal BID blood sugar diagnostic (Accu-Chek Guide test strips) As directed blood-glucose meter (Accu-Chek Guide Me Glucose Meter) As directed blood-glucose sensor (Dexcom G7 Sensor device) As directed change every 10 days Dexcom G6 Transmitter (blood-glucose transmitter) As directed NS empagliflozin (Jardiance) 25 mg PO DAILY 90 days flash glucose scanning reader As directed ibuprofen 800 mg PO Q8H PRN 15 days insulin degludec (Tresiba FlexTouch U-100 insulin) 25 units (0.25 mL) subcut BEDTIME insulin lispro (Humalog KwikPen (U-100) Insulin) 5 - 9 units (0.05 - 0.09 mL) subcut TID 90 days lisinopril 5 mg PO DAILY 90 days metformin ER 1,000 mg (2 x 500 mg) PO BID 30 days Novolog FlexPen U-100 Insulin (insulin aspart U-100) Inject 5 to 9 units subcutaneously TID with meals as instructed; NS [Pen needle 32 gauge x 4/32 (P3BD Ultra-Fine Sonal Pen Needle) use as directed with insulin pen 4 times a day (with meals and at bedtime)] pen needle, diabetic As directed pen needle, diabetic (BD Ultra-Fine Sonal Pen Needle) use as directed 4 times a day before meal and at bedtime; sildenafil 50 mg PO DAILY PRN tirzepatide (Mounjaro) 5 mg (0.5 mL) subcut QWEEK HPI HPI Comments History of Present Illness Details Patient is a 53-year-old male with DM type 2 diagnosed 2014, who presents for management of diabetes. Past medical history: Diabetes type 2, hyperlipidemia, HTN Micro and macrovascular complications: None known Diabetes medications: Metformin 1000 mg twice a day, Jardiance 25 mg daily . Mounjaro 7.5 mg Qwklt reduced to 5 mg because of GI sx Not taking Tresiba 25 units at bedtime. Humalog 5 units small/reg meal, 7 units large meal, + 2 units for bg over 200. ( not taking Humalog) He was intolerant of Victoza due to GI distress. Not taking insulin Unfortunately, patient did not bring glucometer or sensor to follow-up appointment r. Symptoms reported: denies numbness, tingling, cramping in lower extremities Hypoglycemia: denies Hyperglycemia: denies daytime urinary frequency, + nocturia, denies polydypsia Exercise: limited due to arthritis in left knee, limited to 1/2 mile. Is currently considering purchasing an indoor bicycle. Library Customer Service Clerk - CDE education: has seen television installer Pourer Bull Ladle: denies Dental exam: goes every 6 months Ophthalmology evaluation: has appt in 12/2023 - ou no retinopathy Laboratory Tests 06/04/21 06/04/21 06/04/21 10:50 10:50 10:50 Creatinine 0.84 Estimated GFR > 60 Hemoglobin A1c % 8.5 Triglycerides 94 Cholesterol 156 LDL Cholesterol, C alc 93 HDL Cholesterol 45 25-OH Vitamin D To inocente TSH 1.54 Microalb/Creat Rat io 8.2 06/04/21 10:50 Creatinine Estimated GFR Hemoglobin A1c % Triglycerides Cholesterol LDL Cholesterol, C alc HDL Cholesterol 25-OH Vitamin D To inocente 34.6 TSH Microalb/Creat Rat io PFSH Medical History Allergic rhinitis Obesity due to excess calories Anxiety and depression Benign essential hypertension Obesity (BMI 30-39.9) Osteoarthritis of left knee Diabetes mellitus Pure hypercholesterolemia Left knee pain History of testicular cancer Vitamin D deficiency HTN (hypertension) HLD (hyperlipidemia) T2DM (type 2 diabetes mellitus) Surgical History History of colonoscopy Hx of oral surgery Hx of fasciotomy History of orchiectomy Family History Father CVD (cardiovascular disease) Mother No problems noted. Other Mental health problem Social History Household Members: Spouse, Family and Children Housing: House Alcohol intake: former Patient Tobacco Use Status: Never used Tobacco e-Cigarette/Vaping Use: Never Used Second Hand Smoke Exposure: Yes service: Yes Current occupational status: employed Cognitive needs: No Hearing needs: No Vision needs: Yes Physical Exam Vital Signs: Last Vital Signs Pulse 82 12/01/23 14:39 BP 122/70 12/01/23 14:39 BMI result Body Mass Index 32.4 Absence of Cushingoid features. Absence of acromegalic features. Neck exam reveals nl size thyroid about 15 gms. No thyroid nodules palpable. No carotid bruits present. Lungs CTA. Heart S1 S2, Reg R/R. No M/R/ G. Skin exam reveals absence of vitiligo or acanthosis nigricans. Abdominal exam reveals Soft NT/ND with NA BS. No organomegaly present. Neck Other: . Extrem Other: Visual exam of foot performed. No ulcerations or open lesions. No onchomycosis, no callouses.Pulses 2 + distally Sensation intact to monofilament exam. Vibratory sensation sensed is intact with 128 Hz tuning fork Results AMB Hemoglobin A1c AMB Hemoglobin A1c 7.8 % Last Edit by NOY Street on 12/01/23 14:56 Results Reviewed Results Reviewed: Laboratory Last Values Glucose (Clinic) 289 mg/dL (60-115) H 12/01/23 14:47 Assessment & Plan Assessment & Plan (1) Diabetes mellitus: Code(s): E11.9 - Type 2 diabetes mellitus without complications Qualifiers: Diabetes mellitus type: type 2 Diabetes mellitus petroleum terminal plant operator insulin use: with petroleum terminal plant operator use Diabetes mellitus complication status: without complication Qualified Code(s): E11.9 - Type 2 diabetes mellitus without complications; Z79.4 - [facility] (current) use of insulin Plan: See plan below (2) T2DM (type 2 diabetes mellitus): Code(s): E11.9 - Type 2 diabetes mellitus without complications Qualifiers: Diabetes mellitus petroleum terminal plant operator insulin use: with petroleum terminal plant operator use Diabetes mellitus complication status: with hyperglycemia Qualified Code(s): E11.65 - Type 2 diabetes mellitus with hyperglycemia; Z79.4 - moth exterminator (current) use of insulin Plan: This is a 53-year-old white male with a history of type 2 diabetes being treated with Jardiance, metformin, Mounjaro and basal-bolus insulin with improving glycemic control and no known microvascular or macrovascular complication. Plan is to have the patient bring the sensor in for download. Will have patient reinitiate Mounjaro at 5 mg. May need to also reinitiate Tresiba but will need to see sensor download. Patient will follow up with community health educator Orders: Orders AMB Hemoglobin A1c Today E11.9 - Type 2 diabetes mellitus without complications, Z13.9 - Encounter for screening, unspecified Coding Level of Care Code Est Pt Level 4 (52789) Diagnoses Type 2 diabetes mellitus without complication, with long-term current use of insulin E11.9; Z79.4 Diabetes mellitus type: type 2 Diabetes mellitus petroleum terminal plant operator insulin use: with petroleum terminal plant operator use Diabetes mellitus complication status: without complication Type 2 diabetes mellitus with hyperglycemia, with long-term current use of insulin E11.65; Z79.4 Diabetes mellitus halfway insulin use: with petroleum terminal plant operator use Diabetes mellitus complication status: with hyperglycemia
[2023-12-01 14:52] LABS: Glucose, Whole Blood 289 mg/dL (60-115)
== END 2023-12-01 15:13 | disposition home or self-care (01) ==
PROVIDERS: PCP Internal Medicine; Visit Provider Internal Medicine Endocrinology, Diabetes & Metabolism
DX: E11.9 Type 2 diabetes mellitus without complications (principal); Z79.4 Long term (current) use of insulin; E11.65 Type 2 diabetes mellitus with hyperglycemia; Z13.9 Encounter for screening, unspecified
CPT/HCPCS: 99214

== ENCOUNTER → 2023-12-01 14:35 | Outpatient (BNVA) | payer BC, SELFPAY | PROVIDERS: PCP Internal Medicine; Visit Provider Internal Medicine Endocrinology, Diabetes & Metabolism | DX: E11.65 Type 2 diabetes mellitus with hyperglycemia (principal); Z79.4 Long term (current) use of insulin | CPT/HCPCS: 82947; 83036 ==

== ENCOUNTER 2024-02-07 14:44 | Outpatient (AMB) | payer BC, SELFPAY ==
--- NOTE | 2024-02-07 15:22 | A.OFFVIS_ITS ---
Intake Intake Visit Reasons: 30 Min/LVM Ballpoint Pen Cartridge Tester Required: No Accompanied by: Self / Same As Patient Allergies Penicillins Adverse Reaction (Verified 12/01/23 14:44) GI UPSET HPI Comprehensive Diabetes Asmnt Most Recent Diabetes Results: Hemoglobin A1c 12.2 % 05/16/19 Microalb/Creat Ratio 7.1 ug/mg cr 04/22/23 Cholesterol 138 mg/dL 04/22/23 HDL Cholesterol 33 mg/dL 04/22/23 Triglycerides 141 mg/dL 04/22/23 Creatinine 1.01 mg/dL (0.5-1.4) 04/22/23 Blood Urea Nitrogen 22 mg/dL (9-16) H 04/22/23 Sodium 140 mmol/L (135-145) 04/22/23 Potassium 4.5 mmol/L (3.3-5.1) 04/22/23 Chloride 104 mmol/L (96-108) 04/22/23 Carbon Dioxide 26 mmol/L (22-29) 04/22/23 Calcium 9.4 mg/dL (8.4-10.2) 04/22/23 AST 21 U/L (5-37) 04/22/23 ALT 27 U/L (0-40) 04/22/23 Total Protein 6.9 g/dL (6.5-8.0) 04/22/23 Albumin 4.3 g/dL (3.5-5.0) 04/22/23 [facility] Medical History Allergic rhinitis Obesity due to excess calories Anxiety and depression Benign essential hypertension Obesity (BMI 30-39.9) Osteoarthritis of left knee Diabetes mellitus Pure hypercholesterolemia Left knee pain History of testicular cancer Vitamin D deficiency HTN (hypertension) HLD (hyperlipidemia) T2DM (type 2 diabetes mellitus) Surgical History History of colonoscopy Hx of oral surgery Hx of fasciotomy History of orchiectomy Family History Father CVD (cardiovascular disease) Mother No problems noted. Other Mental health problem Social History Household Members: Spouse, Family and Children Housing: House Alcohol intake: former Patient Tobacco Use Status: Never used Tobacco e-Cigarette/Vaping Use: Never Used Second Hand Smoke Exposure: Yes service: Yes Current occupational status: employed Cognitive needs: No Hearing needs: No Vision needs: Yes Assessment & Plan Assessment & Plan (1) T2DM (type 2 diabetes mellitus): Code(s): E11.9 - Type 2 diabetes mellitus without complications Qualifiers: Diabetes mellitus detention insulin use: with detention use Diabetes mellitus complication status: with hyperglycemia Qualified Code(s): E11.65 - Type 2 diabetes mellitus with hyperglycemia; Z79.4 - predatory animal exterminator (current) use of insulin Plan: Diabetes self-management education and support participation record Assessment/scale: 1= needs instructed? 2= needs review? 3= comprehend keep point? 4= demonstrates understanding/ competent? NC= Not Covered Topics Learning Objective: Initial visit Initial or post srvc Initial or post srvc Initial or post srvc Initial or post srvc Initial or post srvc Post srvc Comments Pre Edu-assessment/plan Outcome or reassess Outcome or reassess Outcome or reassess Outcome or reassess Outcome or reassess Outcome or reassess Diabetes pathophysiology 2 3 Healthy eating 2 3 Being active 2 3 Taking medication 2 3 4 Monitoring glucose 2 3 Acute complication 1 3 Chronic complicated 1 3 Lifestyle and healthy coping 1 2 3 Diabetes distress in support 1 2 ?Diabetes pathophysiology: ?Defined diabetes med identify own type of diabetes; list 3 options for treating diabetes Healthy eating: ?Described effect of type, amount and ?timing of food on blood glucose; list 3 methods for planning meal Being active: ?State effect of exercise on blood glucose level Taking medication: ?State effect of diabetes medications on diabetes; name diabetes medications taking, action and side effects Monitoring glucose: ?Identify recommended blood glucose targets and personal target Acute complication: ?List symptoms and treatment of hyper and hypoglycemia, DKA, sick day guidelines and guidelines for severe weather or situations of crisis and diabetes supply manage Chronic complication: ?To find the relationship of blood glucose levels to long- term complications of diabetes in screening and preventative measures Lifestyle and healthy coping: ?Described lifestyle and healthy coping strategies to rule out diabetes self-management Diabetes to stress and support: ?Recognize Diabetes to stress and be able to identified support options Learning objectives: Learning objectives: The patient was provided with verbal and written education on the following topics as outlined below. The patient met all learning objectives and was able to verbalize understanding and provide teach back of education topics discussed . The patient was provided with the opportunity to ask questions and all questions were answered. Patient Assessment Assess patient education level/literacy/barriers patient is working on bachelor's degree at [employer] Patient questions/concerns, patient's last A1c 7.8% on 12/01/2023, patient reports he had had to stop Mounjaro due to GI symptoms. But has now resumed Mounjaro 7.5 mg, weekly with mild GI side effects. Patient reports taking Yuri siba 25 units sporadically. Takes Jardiance 25 mg daily Metformin 1000 mg b.i.d. Patient uses Dexcom to monitor glucose. Patient above target 13% Target 87% Below target 0% Patient's average glucose for the past 2 weeks 143 mg/dL Exercise Medical clearance Effect of exercise on blood sugar Start slowly and gradually increase pace/duration over time Goal amount of exercise Checking blood glucose/have a source of carbs with you Medications (If applicable) * Name of medication * Dosing/administration instructions * Mechanism of action * Potential side effects * Potential adverse reaction and appropriate treatment * Review onset, peak, duration Assess for concerns re: insurance coverage, cost, barriers to compliance Insulin/Injectables (If applicable) * Storage/care of insulin * Injection sites * Site rotation * Onset, peak, duration * Drawing up insulin * Injecting insulin/other injectables * Sharps disposal Continuous blood glucose monitoring (if applicable) Hypoglycemia and Hyperglycemia * Signs and symptoms * Causes * Treatment * Preventing hypoglycemia * When to seek medical attention Medical alert bracelet Lifestyle * Work * Travel * Stress management * Problem solving Know your goals * A1C * Blood sugar targets * Blood pressure * Cholesterol/LDL Urine microalbumin Smart Goal Assessment:Patient will continue to work on reducing carbohydrate intake at snacks in the evening Pt met goal:Pt 75% of the time: New Goal:? Patient will increase physical activity 30-45 minutes a day Educational Materials: The patient was provided with the following written educational materials: ADCES 7 Healthy Behaviors Reducing Risks handout Patient Response to instructions: Comprehension of Instructions: good Readiness to make changes: action How confident they feel about making changes: positive Letter of completion of diabetes Education program will be sent to referring provider Portions of this note were created using voice recognition software, please excuse any words or phrases that may have been misinterpreted. Patient Instructions: Include regular daily activity. ADA recommends 30 minutes of exercise 5 days a week. Weight loss talk to PCP or Certified Pathology Assistant before starting new plan. Test blood sugar as directed; Fasting and 2hpp largest meal. Watch trends in results. Utilize results and to assess how food, physical activity and medications affect blood sugar results. Bring glucometer or CGM to next visit. Be knowledgeable about diabetes medication, its action, side effects, efficacy, toxicity, prescribed dosage, appropriate timing and frequency of administration, effect of missed and delayed doses and instructions for storage, travel and safety. Problem solving techniques to monitor hypo/hyperglycemia episodes and treatments. Reduce risk reduction behaviors, smoking cessation, regular eye, foot and dental examinations. Coding Level of Care Code Est Pt Level 1 (89628) Diagnoses Type 2 diabetes mellitus with hyperglycemia, with long-term current use of insulin E11.65; Z79.4 Diabetes mellitus detention insulin use: with detention use Diabetes mellitus complication status: with hyperglycemia
== END 2024-02-07 15:28 | disposition home or self-care (01) ==
PROVIDERS: PCP Internal Medicine; Visit Provider Registered Nurse Diabetes Educator
DX: E11.65 Type 2 diabetes mellitus with hyperglycemia (principal); Z79.4 Long term (current) use of insulin

== ENCOUNTER → 2024-02-07 14:44 | Outpatient (BNVA) | payer BC, SELFPAY | PROVIDERS: PCP Internal Medicine; Visit Provider Registered Nurse Diabetes Educator | DX: E11.65 Type 2 diabetes mellitus with hyperglycemia (principal); Z79.4 Long term (current) use of insulin | CPT/HCPCS: 99211 ==

== ENCOUNTER 2024-04-11 09:16 | Outpatient (AMB) | payer BC, SELFPAY ==
--- NOTE | 2024-04-11 09:20 | A.OFFVIS_ITS ---
Vital Signs 04/11/24 09:38 Height 5 ft 6 in Weight 199 lb 15.348 oz BMI 32.3 BP 98/64 Blood Pressure Location Lt brachial Position Sitting Pulse 83 Pulse Source Pulse Oximeter Intake Visit Reasons: DM/LVM Intake Note: Patient presents today for D2MT follow up visit. Last Diabetic Eye exam: 03/2024 Last Podiatry Visit: Doesn't have one Random Glucose: 125 mg/dl HgA1c: 7.6% Curling Machine Operator Required: No Accompanied by: Self / Same As Patient Allergies Penicillins Adverse Reaction (Verified 04/11/24 09:46) GI UPSET Medication List - Last Reconciled 04/11/24 by Juan Francisco Fernandez MD atorvastatin 40 mg PO DAILY 30 days azelastine 2 sprays intranasal BID blood sugar diagnostic (Accu-Chek Guide test strips) As directed blood-glucose meter (Accu-Chek Guide Me Glucose Meter) As directed blood-glucose sensor (Dexcom G7 Sensor device) As directed change every 10 days Dexcom G6 Transmitter (blood-glucose transmitter) As directed NS empagliflozin (Jardiance) 25 mg PO DAILY 90 days flash glucose scanning reader As directed ibuprofen 800 mg PO Q8H PRN 15 days insulin degludec (Tresiba FlexTouch U-100 insulin) 25 units (0.25 mL) subcut BEDTIME insulin lispro (Humalog KwikPen (U-100) Insulin) 5 - 9 units (0.05 - 0.09 mL) subcut TID 90 days lisinopril 5 mg PO DAILY 90 days metformin ER 1,000 mg (2 x 500 mg) PO BID 30 days Novolog FlexPen U-100 Insulin (insulin aspart U-100) Inject 5 to 9 units subcutaneously TID with meals as instructed; NS [Pen needle 32 gauge x 4/32 (P3BD Ultra-Fine Sonal Pen Needle) use as directed with insulin pen 4 times a day (with meals and at bedtime)] pen needle, diabetic As directed pen needle, diabetic (BD Ultra-Fine Sonal Pen Needle) use as directed 4 times a day before meal and at bedtime; sildenafil 50 mg PO DAILY PRN tirzepatide (Mounjaro) 7.5 mg (0.5 mL) subcut QWEEK HPI Comments Details: Patient is a 53-year-old male with DM type 2 diagnosed 2014, who presents for management of diabetes. Past medical history: Diabetes type 2, hyperlipidemia, HTN Micro and macrovascular complications: None known Diabetes medications: Metformin 1000 mg twice a day, Jardiance 25 mg daily . Mounjaro 7.5 mg Qwklt Tresiba 25 units at bedtime. Humalog 5 units small/reg meal, 7 units large meal, + 2 units for bg over 200. ( not taking Humalog) He was intolerant of Victoza due to GI distress. Not taking insulin Dexcom download shows he is using the sensor 71% of the time. Average glucose is 190 with standard deviation of 54. 51% range with 49% hyperglycemia and no hypoglycemia. Patent shows elevation in blood sugar after breakfast after lunch and after dinner r. Symptoms reported: denies numbness, tingling, cramping in lower extremities Hypoglycemia: denies Hyperglycemia: denies daytime urinary frequency, + nocturia, denies polydypsia Exercise: limited due to arthritis in left knee, limited to 1/2 mile. Is currently considering purchasing an indoor bicycle. Machine Splitter - CDE education: has seen amusement park worker Debt Collector: gurpreet Dental exam: goes every 6 months Ophthalmology evaluation: appt in 12/2023 - ou no retinopathy elevated pressure following Laboratory Tests 06/04/21 06/04/21 06/04/21 10:50 10:50 10:50 Creatinine 0.84 Estimated GFR > 60 Hemoglobin A1c % 8.5 Triglycerides 94 Cholesterol 156 LDL Cholesterol, Calc 93 HDL Cholesterol 45 25-OH Vitamin D Total TSH 1.54 Microalb/Creat Ratio 8.2 06/04/21 10:50 Creatinine Estimated GFR Hemoglobin A1c % Triglycerides Cholesterol LDL Cholesterol, Calc HDL Cholesterol 25-OH Vitamin D Total 34.6 TSH Microalb/Creat Ratio [facility] Medical History Allergic rhinitis Obesity due to excess calories Anxiety and depression Benign essential hypertension Obesity (BMI 30-39.9) Osteoarthritis of left knee Diabetes mellitus Pure hypercholesterolemia Left knee pain History of testicular cancer Vitamin D deficiency HTN (hypertension) HLD (hyperlipidemia) T2DM (type 2 diabetes mellitus) Surgical History History of colonoscopy Hx of oral surgery Hx of fasciotomy History of orchiectomy Family History Father CVD (cardiovascular disease) Mother No problems noted. Other Mental health problem Social History Household Members: Spouse, Family and Children Housing: House Alcohol intake: former Patient Tobacco Use Status: Never used Tobacco e-Cigarette/Vaping Use: Never Used Second Hand Smoke Exposure: Yes service: Yes Current occupational status: employed Cognitive needs: No Hearing needs: No Vision needs: Yes Physical Exam Vital Signs: Last Vital Signs Pulse 83 04/11/24 09:38 BP 98/64 04/11/24 09:38 BMI result Body Mass Index 32.3 Absence of Cushingoid features. Absence of acromegalic features. Neck exam reveals nl size thyroid about 15 gms. No thyroid nodules palpable. No carotid bruits present. Lungs CTA. Heart S1 S2, Reg R/R. No M/R/ G. Skin exam reveals ab sence of vitiligo or acanthosis nigricans. Abdominal exam reveals Soft NT/ND with NA BS. No organomegaly present. Neck Other: . Extrem Other: Visual exam of foot performed. No ulcerations or open lesions. No onchomycosis, no callouses.Pulses 2 + distally Sensation intact to monofilament exam. Vibratory sensation sensed is intact with 128 Hz tuning fork Results AMB Hemoglobin A1c AMB Hemoglobin A1c 7.6 % Last Edit by NOY Street on 04/11/24 10:01 Results Reviewed Results Reviewed: Laboratory Last Values Glucose (Clinic) 125 mg/dL (60-115) H 04/11/24 09:50 Assessment & Plan Assessment & Plan (1) T2DM (type 2 diabetes mellitus): Code(s): E11.9 - Type 2 diabetes mellitus without complications Category: Medical Qualifiers: Diabetes mellitus complication status: with hyperglycemia Diabetes mellitus intermediate card tender insulin use: with longterm use Qualified Code(s): E11.65 - Type 2 diabetes mellitus with hyperglycemia; Z79.4 - FDC (current) use of insulin Plan: This is a 53-year-old white male with a history of type 2 diabetes being treated with Jardiance, metformin, Mounjaro and basalinsulin with improving glycemic control and no known microvascular or macrovascular complication. Plan is to have the patient watch carbohydrate meal low more carefully. We might increase his Mounjaro in a couple of weeks to 10 mg. Also told him to take a small amount of prandial insulin before he eats if he is to eat a high carbohydrate meal. Will also check lipid profile, TSH, free T4 microalbumin to creatinine ratio. Lastly, took the liberty make a referral to Urology because of erectile dysfunction Orders: Orders AMB Hemoglobin A1c Today E11.65 - Type 2 diabetes mellitus with hyperglycemia, Z13.9 - Encounter for screening, unspecified, Z79.4 - FDC (current) use of insulin Thyroid Stimulating Hormone Today E11.65 - Type 2 diabetes mellitus with hyperglycemia, Z79.4 - intermediate project manager (current) use of insulin Lipid Panel Today E11.65 - Type 2 diabetes mellitus with hyperglycemia, Z79.4 - intermediate project manager (current) use of insulin Free T4 (Free Thyroxine) Today E11.65 - Type 2 diabetes mellitus with hyperglycemia, Z79.4 - intermediate project manager (current) use of insulin Microalbumin, Random (w Creat) Today E11.65 - Type 2 diabetes mellitus with hyperglycemia, Z79.4 - intermediate project manager (current) use of insulin Referrals Urology Referral N52.9 - Male erectile dysfunction, unspecified Coding Level of Care Code Est Pt Level 4 (55939) Complex EM visit Add On G2211 Diagnoses Type 2 diabetes mellitus with hyperglycemia, with long-term current use of insulin E11.65; Z79.4 Diabetes mellitus complication status: with hyperglycemia Diabetes mellitus longterm insulin use: with intermediate card tender use
[2024-04-11 09:38] VITALS: BP 98/64; PULSE 83; BMI 32.3
[2024-04-11 09:54] LABS: Glucose, Whole Blood 125 mg/dL (60-115)
== END 2024-04-11 10:20 | disposition home or self-care (01) ==
PROVIDERS: PCP Internal Medicine; Visit Provider Internal Medicine Endocrinology, Diabetes & Metabolism
DX: Z13.9 Encounter for screening, unspecified (principal); E11.65 Type 2 diabetes mellitus with hyperglycemia; Z79.4 Long term (current) use of insulin
CPT/HCPCS: 99214

== ENCOUNTER → 2024-04-11 09:16 | Outpatient (BNVA) | payer BC, SELFPAY | PROVIDERS: PCP Internal Medicine; Visit Provider Internal Medicine Endocrinology, Diabetes & Metabolism | DX: E11.65 Type 2 diabetes mellitus with hyperglycemia (principal); Z79.4 Long term (current) use of insulin | CPT/HCPCS: 82947; 83036 ==

== ENCOUNTER 2024-07-11 15:30 | Outpatient (AMB) | payer BC, SELFPAY ==
--- NOTE | 2024-07-11 15:35 | A.OFFVIS_ITS ---
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 He is a patient of Dr. Smith. He seen for the following urologic conditions - erectile dysfunction setting of diabetes Progressive over past few years HbA1c 7.6 Had initial partial response to on demand sildenafil Associated with headache Discussed use of daily low-dose with on demand tadalafil No PSA on file Erectile dysfunction in setting of diabetes Progressive over past 5 years Trial 5 mg daily tadalafil with 20 mg on demand PFSH Medical History Allergic rhinitis Obesity due to excess calories Anxiety and depression Benign essential hypertension Obesity (BMI 30-39.9) Osteoarthritis of left knee Diabetes mellitus Pure hypercholesterolemia Left knee pain History of testicular cancer Vitamin D deficiency HTN (hypertension) HLD (hyperlipidemia) T2DM (type 2 diabetes mellitus) Surgical History History of colonoscopy Hx of oral surgery Hx of fasciotomy History of orchiectomy Family History Father CVD (cardiovascular disease) Mother No problems noted. Other Mental health problem Social History Household Members: Spouse, Family and Children Housing: House Alcohol intake: former Patient Tobacco Use Status: Never used Tobacco e-Cigarette/Vaping Use: Never Used Second Hand Smoke Exposure: Yes service: Yes Current occupational status: employed Cognitive needs: No Hearing needs: No Vision needs: Yes Review of Systems Const Denies chills and Denies fever(s) Card Reports no additional complaints and Denies syncope Resp Denies cough GI Denies abdominal pain and Denies heartburn Reports as per HPI and Denies change in libido Neuro Denies syncope Psych Denies change in libido Endo Denies change in libido Physical Exam Const General: cooperative, healthy appearing, comfortable and no acute distress Orientation/consciousness: patient oriented x3 HEENT Face and sinus: Yes normal facial exam Mouth: moist mucous membranes Neck Neck: Yes normal visual inspection, Yes full ROM and Yes trachea midline Chest Chest palpation & inspection: normal inspection of the chest Resp Effort & Inspection: normal respiratory effort, able to speak in complete sentences and no respiratory distress GI Inspection: Yes normal to inspection Back/Spine/Pelvis Cervical Spine: normal cervical lordosis Thoracic/Lumbar Spine: thoracic and lumbar spine normal to inspection Skin General skin exam: no rashes or lesions noted Neuro General: patient oriented x3, gait normal, tone normal and moves all extremities Extrem General: Yes normal to inspection and Yes capillary refill normal Assessment & Plan Assessment & Plan (1) Erectile dysfunction associated with type 2 diabetes mellitus: Code(s): E11.69 - Type 2 diabetes mellitus with other specified complication; N52.1 - Erectile dysfunction due to diseases classified elsewhere Category: Medical Plan Trial daily tadalafil with on demand tadalafil Medications: New tadalafil [facility] [address] [id number] 5 mg PO DAILY 90 days 90 tabs 0RF sexual activity E11.69 - Type 2 diabetes mellitus with other specified complication, N52.1 - Erectile dysfunction due to diseases classified elsewhere tadalafil On demand medication take 60 minutes before intended activity - [facility] [address] [id number] - 10 mg PO ONCE 30 days PRN 30 tabs 0RF sexual activity E11.69 - Type 2 diabetes mellitus with other specified complication, N52.1 - Erectile dysfunction due to diseases classified elsewhere Patient Instructions: Imaging studies, laboratory and physical exam results were discussed and reviewed in detail. No major barriers to patient understanding were identified. An opportunity to ask questions regarding the treatment plan was provided. All questions were answered. The patient expressed understanding and agreement with the above treatment plan. The patient is aware they should contact our office by phone for worsening of their current condition or the appearance of new urologic symptoms. Compliance is encouraged with any medications and followup testing that is ordered. It is a privilege to participate in the urologic care of your patient. If you have any questions or concerns regarding treatment for the above conditions, or other urologic issues, please do not hesitate to contact me. The office telephone contact is [phone]. This note is constructed using voice recognition software. While every effort has been made to ensure accuracy pals specialist errors may have been included. Yours sincerely, Dr Adarsh Chambers MD, [facility] - Urology Providers of Expert, Compassionate Care for the Genitourinary System Coding Level of Care Code New Pt Level 4 (19655) Diagnoses Erectile dysfunction associated with type 2 diabetes mellitus E11.69; N52.1
== END 2024-07-11 16:34 | disposition home or self-care (01) ==
LOC: HO.HUSH 15:31
PROVIDERS: PCP Internal Medicine; Visit Provider Urology
DX: E11.69 Type 2 diabetes mellitus with other specified complication (principal); N52.1 Erectile dysfunction due to diseases classified elsewhere
CPT/HCPCS: 99204

== ENCOUNTER → 2024-07-11 15:30 | Outpatient (BNVA) | payer BC, SELFPAY | PROVIDERS: PCP Internal Medicine; Visit Provider Urology ==

== ENCOUNTER 2024-08-10 09:11 | Outpatient (AMB) | payer BC, SELFPAY ==
--- NOTE | 2024-08-10 09:13 | MHC.OFFVIS ---
Vital Signs 08/10/24 09:17 Height 5 ft 6 in Weight 203 lb 7.787 oz BMI 32.8 BP 130/72 Blood Pressure Location Rt brachial Position Sitting Pulse 76 Pulse Source Pulse Oximeter Intake Visit Reasons: DM-confirmed Intake Note: Patient present today to follow up on Type 2 Diabetes Mellitus. Last Diabetic Eye exam: 06/2024 Last Podiatry Visit: Doesn't have one Random Glucose: 104 mg/dl HgA1C: 12.7% Field Logistics Coordinator Required: No Accompanied by: Self / Same As Patient Allergies Penicillins Adverse Reaction (Verified 08/10/24 09:20) GI UPSET Medication List - Last Reconciled 08/10/24 by Juan Francisco Fernandez MD atorvastatin 40 mg PO DAILY 30 days azelastine 2 sprays intranasal BID blood sugar diagnostic (Accu-Chek Guide test strips) As directed blood-glucose meter (Accu-Chek Guide Me Glucose Meter) As directed blood-glucose sensor (Dexcom G7 Sensor device) As directed change every 10 days Dexcom G6 Transmitter (blood-glucose transmitter) As directed NS empagliflozin (Jardiance) 25 mg PO DAILY 90 days flash glucose scanning reader As directed ibuprofen 800 mg PO Q8H PRN 15 days insulin lispro (Humalog KwikPen (U-100) Insulin) 5 - 9 units (0.05 - 0.09 mL) subcut TID 90 days Lantus Solostar U-100 Insulin (insulin glargine) 25 units (0.25 mL) subcut DAILY NS lisinopril 5 mg PO DAILY 90 days metformin ER 1,000 mg (2 x 500 mg) PO BID 30 days Novolog FlexPen U-100 Insulin (insulin aspart U-100) Inject 5 to 9 units subcutaneously TID with meals as instructed; NS [Pen needle 32 gauge x 4/32 (P3BD Ultra-Fine Sonal Pen Needle) use as directed with insulin pen 4 times a day (with meals and at bedtime)] pen needle, diabetic As directed pen needle, diabetic (BD Ultra-Fine Sonal Pen Needle) use as directed 4 times a day before meal and at bedtime; sildenafil 50 mg PO DAILY PRN tadalafil 5 mg PO DAILY 90 days tadalafil 10 mg PO ONCE PRN 30 days tirzepatide (Mounjaro) 7.5 mg (0.5 mL) subcut QWEEK HPI Comments Details: Patient is a 53-year-old male with DM type 2 diagnosed 2014, who presents for management of diabetes. Past medical history: Diabetes type 2, hyperlipidemia, HTN Micro and macrovascular complications: None known Diabetes medications: Metformin 1000 mg twice a day, Jardiance 25 mg daily . Mounjaro 7.5 mg Qwklt hasn't taken in 2 mos Lantus 25 units at bedtime. Humalog 5 units small/reg meal, 7 units large meal, + 2 units for bg over 200. ( not taking Humalog) He was intolerant of Victoza due to GI distress. Not taking insulin Dexcom download shows he is using the sensor 21% of the time. Average glucose is 227 with standard deviation of 56. 25% range with 75% hyperglycemia and no hypoglycemia. Patent shows elevation in blood sugar after breakfast and sustain blood sugar elevation throughout the day r. Symptoms reported: denies numbness, tingling, cramping in lower extremities Hypoglycemia: denies Hyperglycemia: denies daytime urinary frequency, + nocturia, denies polydypsia Exercise: limited due to arthritis in left knee, limited to 1/2 mile. Is currently considering purchasing an indoor bicycle. Superintendent Of Generation - CDE education: has seen sports analyst Director Medical Science: denies Dental exam: goes every 6 months Ophthalmology evaluation: appt in 07/2024 - some retinopathy ?L eye Laboratory Tests 06/04/21 06/04/21 06/04/21 10:50 10:50 10:50 Creatinine 0.84 Estimated GFR > 60 Hemoglobin A1c % 8.5 Triglycerides 94 Cholesterol 156 LDL Cholesterol, Calc 93 HDL Cholesterol 45 25-OH Vitamin D Total TSH 1.54 Microalb/Creat Ratio 8.2 06/04/21 10:50 Creatinine Estimated GFR Hemoglobin A1c % Triglycerides Cholesterol LDL Cholesterol, Calc HDL Cholesterol 25-OH Vitamin D Total 34.6 TSH Microalb/Creat Ratio [facility] Medical History Allergic rhinitis Obesity due to excess calories Anxiety and depression Benign essential hypertension Obesity (BMI 30-39.9) Osteoarthritis of left knee Diabetes mellitus Pure hypercholesterolemia Left knee pain History of testicular cancer Vitamin D deficiency HTN (hypertension) HLD (hyperlipidemia) T2DM (type 2 diabetes mellitus) Surgical History History of colonoscopy Hx of oral surgery Hx of fasciotomy History of orchiectomy Family History Father CVD (cardiovascular disease) Mother No problems noted. Other Mental health problem Social History Household Members: Spouse, Family and Children Housing: House Alcohol intake: former Patient Tobacco Use Status: Never used Tobacco e-Cigarette/Vaping Use: Never Used Second Hand Smoke Exposure: Yes service: Yes Current occupational status: employed Cognitive needs: No Hearing needs: No Vision needs: Yes Physical Exam Vital Signs: Last Vital Signs Pulse 76 08/10/24 09:17 BP 130/72 08/10/24 09:17 BMI result Body Mass Index 32.8 Absence of Cushingoid features. Absence of acromegalic features. Neck exam reveals nl size thyroid about 15 gms. No thyroid nodules palpable. No carotid bruits present. Lungs CTA. Heart S1 S2, Reg R/R. No M/R/ G. Skin exam reveals absence of vitiligo or acanthosis nigricans. Abdominal exam reveals Soft NT/ND with NA BS. No organomegaly present. Neck Other: . Extrem Other: Visual exam of foot performed. No ulcerations or open lesions. No onchomycosis, no callouses.Pulses 2 + distally Sensation intact to monofilament exam. Vibratory sensation sensed is intact with 128 Hz tuning fork Results AMB Hemoglobin A1c AMB Hemoglobin A1c 12.7 % Last Edit by NOY Street on 08/10/24 09:39 Results Reviewed Results Reviewed: Laboratory Last Values Glucose (Clinic) 104 mg/dL (60-115) 08/10/24 09:23 Assessment & Plan Assessment & Plan (1) T2DM (type 2 diabetes mellitus): Code(s): E11.9 - Type 2 diabetes mellitus without complications Category: Medical Qualifiers: Diabetes mellitus chcf insulin use: with watermelon harvesting supervisor use Diabetes mellitus complication status: with hyperglycemia Qualified Code(s): E11.65 - Type 2 diabetes mellitus with hyperglycemia; Z79.4 - FPC (current) use of insulin Plan: This is a 53-year-old white male with a history of type 2 diabetes being treated with Jardiance, metformin, Mounjaro and basal-bolus insulin with deteriorated poor glycemic control and no known microvascular or macrovascular complication. Plan is to restart Mounjaro 2.5 mg Q weekly and titrate as tolerated. I also told the patient to increase the Lantus to 30 units and by 4 units every 4 days to keep point of care in the morning hours <150 . We also talked about the idea of using an insulin pump should as iLet in the future . Will also check lipid profile, TSH, free T4 microalbumin to creatinine ratio. He will follow-up with Merlyn Barnhart NP in 6 weeks Orders: Orders AMB Hemoglobin A1c Today E11.65 - Type 2 diabetes mellitus with hyperglycemia, Z13.9 - Encounter for screening, unspecified, Z79.4 - FPC (current) use of insulin Medications: New tirzepatide (Mounjaro) for 4 weeks 2.5 mg (0.5 mL) subcut QWEEK 2 mL 5RF Discontinued tirzepatide (Mounjaro) Discontinued Reason: Doctor's Order 7.5 mg (0.5 mL) subcut QWEEK 2 mL 4RF Coding Level of Care Code Est Pt Level 4 (54889) Complex EM visit Add On G2211 Diagnoses Type 2 diabetes mellitus with hyperglycemia, with long-term current use of insulin E11.65; Z79.4 Diabetes mellitus watermelon harvesting supervisor insulin use: with chcf use Diabetes mellitus complication status: with hyperglycemia
[2024-08-10 09:17] VITALS: BP 130/72; PULSE 76; BMI 32.8
[2024-08-10 09:26] LABS: Glucose, Whole Blood 104 mg/dL (60-115)
== END 2024-08-10 10:02 | disposition home or self-care (01) ==
PROVIDERS: PCP Internal Medicine; Visit Provider Internal Medicine Endocrinology, Diabetes & Metabolism
DX: Z13.9 Encounter for screening, unspecified (principal); E11.65 Type 2 diabetes mellitus with hyperglycemia; Z79.4 Long term (current) use of insulin
CPT/HCPCS: 99214

== ENCOUNTER → 2024-08-10 09:11 | Outpatient (BNVA) | payer BC, SELFPAY | PROVIDERS: PCP Internal Medicine; Visit Provider Internal Medicine Endocrinology, Diabetes & Metabolism | DX: E11.65 Type 2 diabetes mellitus with hyperglycemia (principal); Z79.4 Long term (current) use of insulin; Z79.899 Other long term (current) drug therapy | CPT/HCPCS: 82947; 83036 ==

== ENCOUNTER 2024-09-20 08:53 | Outpatient (REF) | payer BC, SELFPAY ==
[2024-09-20 10:39] LABS: MANUAL DIFF FLAG NO
[2024-09-20 10:45] LABS: Basophils Absolute Auto 0.1 X10*3/uL (0.0-0.2); Eosinophils Absolute Auto 0.5 X10*3/uL (0.0-0.4); Eosinophils Percent Auto 8.5 % (0-4); Hematocrit 48.4 % (42.0-52.0); Hemoglobin 15.4 g/dl (14.0-18.0); Imm Gran Abs Auto 0.01 X10*3/uL (0.00-0.03); Imm Gran Pct Auto 0.2 % (0.0-0.4); Lymphocytes Absolute Auto 1.4 X10*3/uL (1.2-4.9); Lymphocytes Percent Auto 23.8 % (20-40); Mean Corpuscular HGB Conc 31.8 g/dl (31.0-36.0); Mean Corpuscular Hemoglobin 27.4 pg (27.0-33.0); Mean Corpuscular Volume 86.1 fL (80.0-98.0); Mean Platelet Volume 9.8 fL (9.4-12.4); Monocytes Absolute Auto 0.4 X10*3/uL (0.1-1.2); Monocytes Percent Auto 6.3 % (2-11); Neutrophils Absolute Auto 3.5 x10*3/uL (2.0-8.3); Neutrophils Percent Auto 60.2 % (45-73); Platelet Count 261 X10*3/uL (160-400); Red Blood Count 5.62 X10*6/uL (4.60-5.80); Red Cell Distribution Width 12.9 % (11.0-16.0); White Blood Count 5.9 X10*3/uL (4.8-10.8)
[2024-09-20 10:46] LABS: Appearance Urine Clear; Color Urine Yellow; Glucose Urine UA >=1000 mg/dL (Negative); Leukocyte Esterase Urine Negative (Negative); Nitrite Urine Negative (Negative); Specific Gravity - Urine >= 1.030 (1.005-1.025); UMIC TRIGGER UACC YES; Urine Blood Negative (Negative); Urine Ketones Trace mg/dL (Negative); Urine Protein Negative (Neg-Trace)
[2024-09-20 10:50] LABS: Bacteria Urine None Seen (None Seen); Hyaline Casts Urine 0-2 /LPF (0-2); RBC Urine 0-2 /HPF (0-2); Squamous Epithelial Cell Urine 0-2 /HPF (0-2); UACC Culture Trigger YES
[2024-09-20 10:57] LABS: Estimated Average Glucose 209 mg/dL; Hemoglobin A1C 294.0699 umol/L; Hemoglobin A1c % 8.9 % (<6.0); Total Hemoglobin (HGBA1C) 3989.7778 umol/L
[2024-09-20 11:19] LABS: Microalbum/Creatinine Ratio Ur 8.5 ug/mg cr (<30)
[2024-09-20 11:26] LABS: Alanine Aminotransferase 25 U/L (0-40); Albumin Level 4.5 g/dL (3.5-5.0); Alkaline Phosphatase 60 U/L (39-117); Anion Gap 10 (12-20); Aspartate Amino Transferase 28 U/L (5-37); Bilirubin Total 0.6 mg/dL (0.0-1.0); Blood Urea Nitrogen 19 mg/dL (9-16); Carbon Dioxide 24 mmol/L (22-29); Chloride 112 mmol/L (96-108); Cholesterol 105 mg/dL (<200); Estimated Glomerular Filt Rate > 60; Glucose Fasting 108 mg/dL (60-99); HDL Cholesterol 38 mg/dL (>40); LDL Cholesterol Calculated 55 mg/dL (<100); Potassium 4.4 mmol/L (3.3-5.1); Sodium 142 mmol/L (135-145); Triglycerides 62 mg/dL (<150)
[2024-09-20 11:27] LABS: Free T4 (Free Thyroxine) 0.92 ng/dL (0.71-1.85); Thyroid Stimulating Hormone 1.38 uIU/mL (0.32-4.0); Vitamin D 25-OH Total 42.4 ng/mL (>30)
== END 2024-09-20 08:54 | disposition home or self-care (01) ==
LOC: HO.10HDL 08:53
PROVIDERS: Internal Medicine; Visit Provider Internal Medicine Endocrinology, Diabetes & Metabolism
DX: E11.65 Type 2 diabetes mellitus with hyperglycemia (principal); Z79.4 Long term (current) use of insulin; I10 Essential (primary) hypertension; E78.00 Pure hypercholesterolemia, unspecified; E11.9 Type 2 diabetes mellitus without complications; R30.0 Dysuria
CPT/HCPCS: 36415; 80053; 80061; 81001; 82043; 82306; 82570; 83036; 84439; 84443; 85025; 87086

== ENCOUNTER → 2024-09-21 15:22 | Outpatient (BNVA) | payer BC, SELFPAY | PROVIDERS: PCP Internal Medicine; Visit Provider Nurse Practitioner Adult Health | DX: E11.65 Type 2 diabetes mellitus with hyperglycemia (principal); Z79.4 Long term (current) use of insulin | CPT/HCPCS: 82947 ==

== ENCOUNTER 2024-10-02 15:04 | Outpatient (AMB) | payer BC, SELFPAY ==
[2024-10-02 15:10] VITALS: BP 130/72; PULSE 92; TEMP 36.8; O2SAT 98; BMI 32.6
--- NOTE | 2024-10-02 15:11 | MHC.OFFWIV ---
Intake Vital Signs 10/02/24 15:10 Height 5 ft 6 in Weight 202 lb BMI 32.6 BP 130/72 Blood Pressure Location Lt brachial Position Sitting Pulse 92 Pulse Source Pulse Oximeter Temp 98.2 F Temp Source Oral Pulse Oximetry (%) 98 Intake Visit Reasons: EP-lt arm redness Intake Note: pt is here for left arm redness Patient Tobacco Use Status: Never used Tobacco Allergies Penicillins Adverse Reaction (Verified 10/02/24 15:10) GI UPSET Do you need a note to return to daycare/school/sports/work: No HPI HPI Comments History of Present Illness Details 54 y/o male patient who presents to the walk in clinic with c/o left forearm skin infection for 2 days now. Reports that he scratched his skin hard and possibly bumped the area against the wall - redness, itchy and weeping brownish discharge. He is Diabetic and wounds do not heal quickly. He had similar a small abscess on his left digit which responded well on Doxyc. [facility] Medical History (Updated 10/02/24 @ 16:13 by Estela Weiss NP) Cellulitis of skin Allergic rhinitis Obesity due to excess calories Anxiety and depression Benign essential hypertension Obesity (BMI 30-39.9) Osteoarthritis of left knee Diabetes mellitus Pure hypercholesterolemia Left knee pain History of testicular cancer Vitamin D deficiency HTN (hypertension) HLD (hyperlipidemia) T2DM (type 2 diabetes mellitus) Surgical History History of colonoscopy Hx of oral surgery Hx of fasciotomy History of orchiectomy Family History Father CVD (cardiovascular disease) Mother No problems noted. Other Mental health problem Social History Household Members: Spouse, Family and Children Housing: House Alcohol intake: former Patient Tobacco Use Status: Never used Tobacco e-Cigarette/Vaping Use: Never Used Second Hand Smoke Exposure: Yes service: Yes Current occupational status: employed Cognitive needs: No Hearing needs: No Vision needs: Yes Review of Systems Const All systems reviewed & are unremarkable except as noted in HPI and below Physical Exam Vital Signs: Last Vital Signs Temp 98.2 F 10/02/24 15:10 Pulse 92 10/02/24 15:10 BP 130/72 10/02/24 15:10 Pulse Ox 98 10/02/24 15:10 BMI result Body Mass Index 32.6 Const General: cooperative and no acute distress Orientation/consciousness: patient oriented x3 Neuro General: patient oriented x3 Extrem Elbow/forearm/wrist images: 1. Small round wound with red boarders, whitish center and brownish discharge. Mild tenderness. Assessment & Plan Assessment & Plan (1) Cellulitis of skin: Code(s): L03.90 - Cellulitis, unspecified Plan: Ordered Doxy Keep wound dry and clean Medications: New doxycycline hyclate 100 mg PO BID 20 caps 0RF 10 days L03.90 - Cellulitis, unspecified Coding Level of Care Code Est Pt Level 3 (34953) Diagnoses Cellulitis of skin L03.90 Time Spent (min) 15
== END 2024-10-02 16:59 | disposition home or self-care (01) ==
PROVIDERS: PCP Internal Medicine; Visit Provider Nurse Practitioner Family
DX: L03.90 Cellulitis, unspecified (principal)

== ENCOUNTER → 2024-10-02 15:04 | Outpatient (BNVA) | payer BC, SELFPAY | PROVIDERS: PCP Internal Medicine ==

== ENCOUNTER 2024-10-10 14:46 | Outpatient (AMB) | payer BC, SELFPAY ==
--- NOTE | 2024-10-10 14:47 | A.OFFVIS_ITS ---
Intake Visit Reasons: 3M follow up Intake Note: Patient is present for 3M F/U Urology Medication:TADALAFIL Antibiotic Allergy:PENICILLIN Blood Thinner:NONE Ice Skater Required: No Allergies Penicillins Adverse Reaction (Verified 10/10/24 14:48) GI UPSET HPI Comments Details: Nikita is a pleasant male. He is a patient of Dr. Smith. He seen for the following urologic conditions - erectile dysfunction setting of diabetes Telemedicine Evaluation 15 min Consultation DoximHinge Renny Video Three-month follow-up tadalafil Good effect Current HbA1c 09/30 8.9% Check testosterone Tele follow-up Erectile dysfunction in setting of diabetes Progressive over past 5 years Trial 5 mg daily tadalafil with 20 mg on demand Sildenafil headache PFSH Medical History (Updated 10/02/24 @ 16:13 by Estela Weiss NP) Cellulitis of skin Allergic rhinitis Obesity due to excess calories Anxiety and depression Benign essential hypertension Obesity (BMI 30-39.9) Osteoarthritis of left knee Diabetes mellitus Pure hypercholesterolemia Left knee pain History of testicular cancer Vitamin D deficiency HTN (hypertension) HLD (hyperlipidemia) T2DM (type 2 diabetes mellitus) Surgical History History of colonoscopy Hx of oral surgery Hx of fasciotomy History of orchiectomy Family History Father CVD (cardiovascular disease) Mother No problems noted. Other Mental health problem Social History Household Members: Spouse, Family and Children Housing: House Alcohol intake: former Patient Tobacco Use Status: Never used Tobacco e-Cigarette/Vaping Use: Never Used Second Hand Smoke Exposure: Yes service: Yes Current occupational status: employed Cognitive needs: No Hearing needs: No Vision needs: Yes Review of Systems Const Denies chills and Denies fever(s) Card Reports no additional complaints and Denies syncope Resp Denies cough GI Denies abdominal pain and Denies heartburn Reports as per HPI and Denies change in libido Neuro Denies syncope Psych Denies change in libido Endo Denies change in libido Physical Exam Const General: cooperative, healthy appearing, comfortable and no acute distress Orientation/consciousness: patient oriented x3 HEENT Face and sinus: Yes normal facial exam Mouth: moist mucous membranes Neck Neck: Yes normal visual inspection, Yes full ROM and Yes trachea midline Chest Chest palpation & inspection: normal inspection of the chest Resp Effort & Inspection: normal respiratory effort, able to speak in complete sentences and no respiratory distress GI Inspection: Yes normal to inspection Back/Spine/Pelvis Cervical Spine: normal cervical lordosis Thoracic/Lumbar Spine: thoracic and lumbar spine normal to inspection Skin General skin exam: no rashes or lesions noted Neuro General: patient oriented x3, gait normal, tone normal and moves all extremities Extrem General: Yes normal to inspection and Yes capillary refill normal Telehealth Telehealth Telehealth Platform: SADAR 3D Location of provider rendering services: practice address Location of patient: address on file Patient Identification confirmed using: Name, : Yes Telehealth method: video Patient verbally consented to treatment: Yes Patient verbally consented to billing insurance company: Yes Patient informed of any privacy concerns related to visit: Yes Minutes spent on Phone/Video with Pt.: 15 Assessment & Plan Assessment & Plan (1) Erectile dysfunction associated with type 2 diabetes mellitus: Code(s): E11.69 - Type 2 diabetes mellitus with other specified complication; N52.1 - Erectile dysfunction due to diseases classified elsewhere Category: Medical Plan Refill medications Check testosterone Orders: Orders Testosterone, Free/Total Today E11.69 - Type 2 diabetes mellitus with other specified complication, N52.1 - Erectile dysfunction due to diseases classified elsewhere, R68.82 - Decreased libido Medications: Refilled tadalafil On demand medication take 60 minutes before intended activity - [facility] Group [facility] [address] [id number] - 10 mg PO ONCE 30 days PRN 30 tabs 2RF sexual activity E11.69 - Type 2 diabetes mellitus with other specified complication, N52.1 - Erectile dysfunction due to diseases classified elsewhere [facility] [address] [id number] 5 mg PO DAILY 90 days 90 tabs 0RF sexual activity E11.69 - Type 2 diabetes mellitus with other specified complication, N52.1 - Erectile dysfunction due to diseases classified elsewhere Patient Instructions: This note is constructed using voice recognition software. While every effort has been made to ensure accuracy client services vice president errors may have been included. Imaging studies, laboratory and physical exam results were discussed and reviewed in detail. No major barriers to patient understanding were identified. An opportunity to ask questions regarding the treatment plan was provided. All questions were answered. The patient expressed understanding and agreement with the above treatment plan. The patient is aware they should contact our office by phone for worsening of their current condition or the appearance of new urologic symptoms. Compliance is encouraged with any medications and followup testing that is ordered. It is a privilege to participate in the urologic care of your patient. If you have any questions or concerns regarding treatment for the above conditions, or other urologic issues, please do not hesitate to contact me. The office telephone contact is [phone]. Sincerely, Dr Adarsh Chambers MD, [facility] - Urology Compassionate Specialist Care for the Genitourinary System Coding Level of Care Code Tele Est Pt Level 3 (39412) Diagnoses Erectile dysfunction associated with type 2 diabetes mellitus E11.69; N52.1
== END 2024-10-10 16:09 | disposition home or self-care (01) ==
LOC: HO.HUSH 14:46
PROVIDERS: PCP Internal Medicine; Visit Provider Urology
DX: E11.69 Type 2 diabetes mellitus with other specified complication (principal); N52.1 Erectile dysfunction due to diseases classified elsewhere
CPT/HCPCS: 99213

== ENCOUNTER → 2024-10-10 14:46 | Outpatient (BNVA) | payer BC, SELFPAY | PROVIDERS: PCP Internal Medicine; Visit Provider Urology ==

== ENCOUNTER 2024-11-16 14:29 | Outpatient (AMB) | payer BC, SELFPAY ==
--- NOTE | 2024-11-16 14:41 | A.OFFPSYCH_ITS ---
Intake Intake Visit Reasons: consultation Diesel Engine Operator Required: No Allergies Penicillins Adverse Reaction (Verified 10/10/24 14:48) GI UPSET Medication List - Last Reconciled 11/16/24 by Celina Johnson APRN atorvastatin 40 mg PO DAILY 30 days azelastine 2 sprays intranasal BID blood sugar diagnostic (Accu-Chek Guide test strips) As directed blood-glucose meter (Accu-Chek Guide Me Glucose Meter) As directed blood-glucose sensor (Dexcom G7 Sensor device) As directed change every 10 days Dexcom G6 Transmitter (blood-glucose transmitter) As directed NS doxycycline hyclate 100 mg PO BID 10 days empagliflozin (Jardiance) 25 mg PO DAILY 90 days flash glucose scanning reader As directed ibuprofen 800 mg PO Q8H PRN 15 days Lantus Solostar U-100 Insulin (insulin glargine) 25 units (0.25 mL) subcut DAILY NS lisinopril 5 mg PO DAILY 90 days metformin ER 1,000 mg (2 x 500 mg) PO BID 30 days [Pen needle 32 gauge x 4/32 (P3BD Ultra-Fine Sonal Pen Needle) use as directed with insulin pen 4 times a day (with meals and at bedtime)] pen needle, diabetic As directed pen needle, diabetic (Comfort EZ Pen [place]) As directed sildenafil 50 mg PO DAILY PRN tadalafil 10 mg PO ONCE PRN 30 days tadalafil 5 mg PO DAILY 90 days tirzepatide (Mounjaro) 2.5 mg (0.5 mL) subcut QWEEK HPI- Psychiatric Chief Complaint: consultation HPI Narrative: pt referred b by his primary care physician for evaluation of depression. Pt was previously prescribed sertraline in 2021, discontinued in 2022 but he had noted increased symptoms of depression and is interested in starting medication again. Patient's PHQ-9 equals 15 his G A D 7 equals 12. He reports decreased interest and pleasure in doing things he feels down and hopeless he has difficulty falling asleep and he wakes up early in the morning he is often tired and very low energy he has poor appetite he feels bad about himself and feels like he is letting his family down he has trouble concentrating including reading and watching television he feels restless he has thoughts that he would be better off although he reports he would not hurt himself or kill himself because of his family he feels anxious and nervous every day he worries every day he worries about many things including finances his family his ability to work and go to school he has trouble relaxing he is very restless he can become easily annoyed and irritable has low frustration tolerance he has a tremendous amount of stress he works 2 jobs and is also in graduate school working on his master's in leadership and human resources. 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 Subjective Subjective Subjective Medication Compliance: Yes Side effects from medications: No Review of Systems Medical Review of Systems: unchanged Mental Status Exam Mental Status Exam Patient Appearance: Well Grooomed Patient Orientation: Person, Place, Time and Situation Level of Consciousness: Awake and Appropriate Patient Behavior: Appropriate and Talkative Mood Description: Depressed, Anxious and Sad Affect Description: Depressed, Anxious and Sad Patient Cognition Impaired: No Ability to Follow Directions: Good Speech Pattern: Excessive Memory Description: Intact Hallucinations: None Delusions: Not Present Thought Process: Intact and Goal Oriented Thought Content: positive for Intact, positive for Circumstantial and positive for Goal Oriented Judgement: Good Assessment and Plan Assessment & Plan (1) Major depression, recurrent: Status: Acute Qualifiers: Major depression episode severity: moderate Code(s): F33.9 - Major depressive disorder, recurrent, unspecified Plan Start duloxetine 30 mg at bedtime for 10 days and then increase to 60 mg daily Patient will follow-up with his primary care physician Medications: New duloxetine (Cymbalta) 30 mg PO DAILY 30 caps 0RF Counseling and coordination of Care Pt. Self Management counseling: Exercise, Maintenance-social rhythm, Mindfulness, Mod caffeine/ETOH intake, Nutrition education and improvement, Sleep hygiene and General coping skills Medication management counseling: Effectiveness, Side effects, Dosing range, Duration, Drug interaction and Adherence Diagnosis and Prognosis Counseling: Accuracy of diagnosis, Prognosis over time, Impact of diagnosis on life functions, Impact of family relationship, Problemati c behaviors secondary to diagnosis and Adequacy of current interventions Details: I spent 70 minutes reviewing the record, seeing the patient and documenting in the medical record. Counseling provided to the patient/caregiver as outlined below. Addressed patient/caregiver concerns regarding current medication regime including effective adherence. Addressed patient/caregiver concerns regarding diagnosis and prognosis including accuracy of diagnosis, prognosis over time, impact of diagnosis. Addressed patient/caregiver concerns regarding impact of recent str essors. [facility] Medical History (Updated 11/23/24 @ 12:44 by Celina Johnson APRN) Cellulitis of skin Allergic rhinitis Obesity due to excess calories Anxiety and depression Benign essential hypertension Obesity (BMI 30-39.9) Osteoarthritis of left knee Diabetes mellitus Pure hypercholesterolemia Left knee pain History of testicular cancer Vitamin D deficiency HTN (hypertension) HLD (hyperlipidemia) T2DM (type 2 diabetes mellitus) Surgical History History of colonoscopy Hx of oral surgery Hx of fasciotomy History of orchiectomy Family History Father CVD (cardiovascular disease) Mother No problems noted. 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 He and his family moved in with his aunt 5 years ago to take care of her because she had dementia he says it was very stressful she in 07/26/2024 and this was a big loss he was very close to her. patient lost his father at age 5 Substance History: None Trauma History: Loss of father at age 5 Coding Level of Care Code Psych Diag Eval w/Med (32183) Diagnoses Major depression, recurrent F33.9 Major depression episode severity: moderate
== END 2024-11-16 17:48 | disposition home or self-care (01) ==
LOC: HO.HOP 14:29
PROVIDERS: PCP Internal Medicine; Visit Provider Clinical Nurse Specialist Psychiatric/Mental Health
DX: F33.9 Major depressive disorder, recurrent, unspecified (principal)
CPT/HCPCS: 90792

== ENCOUNTER → 2024-11-16 14:29 | Outpatient (BNVA) | payer BC, SELFPAY | PROVIDERS: PCP Internal Medicine; Visit Provider Clinical Nurse Specialist Psychiatric/Mental Health | DX: F33.1 Major depressive disorder, recurrent, moderate (principal) | CPT/HCPCS: 90792 ==

== ENCOUNTER 2024-12-14 15:26 | Outpatient (AMB) | payer BC, SELFPAY ==
--- NOTE | 2024-12-14 15:45 | A.OFFPSYCH_ITS ---
Intake Intake Visit Reasons: f/u consultation Ad Copy Writer Required: No Allergies Penicillins Adverse Reaction (Verified 10/10/24 14:48) GI UPSET Medication List - Last Reconciled 12/14/24 by Celina Johnson APRN atorvastatin 40 mg PO DAILY 30 days azelastine 2 sprays intranasal BID blood sugar diagnostic (Accu-Chek Guide test strips) As directed blood-glucose meter (Accu-Chek Guide Me Glucose Meter) As directed blood-glucose sensor (Dexcom G7 Sensor device) As directed change every 10 days Dexcom G6 Transmitter (blood-glucose transmitter) As directed NS doxycycline hyclate 100 mg PO BID 10 days duloxetine (Cymbalta) 60 mg PO DAILY empagliflozin (Jardiance) 25 mg PO DAILY 90 days flash glucose scanning reader As directed ibuprofen 800 mg PO Q8H PRN 15 days Lantus Solostar U-100 Insulin (insulin glargine) 25 units (0.25 mL) subcut DAILY NS lisinopril 5 mg PO DAILY 90 days metformin ER 1,000 mg (2 x 500 mg) PO BID 30 days [Pen needle 32 gauge x 4/32 (P3BD Ultra-Fine Sonal Pen Needle) use as directed with insulin pen 4 times a day (with meals and at bedtime)] pen needle, diabetic As directed pen needle, diabetic (Comfort EZ Pen [place]) As directed sildenafil 50 mg PO DAILY PRN tadalafil 10 mg PO ONCE PRN 30 days tadalafil 5 mg PO DAILY 90 days tirzepatide (Mounjaro) 2.5 mg (0.5 mL) subcut QWEEK HPI- Psychiatric Chief Complaint: f/u consultation HPI Narrative: Pt reports some improvement but continued high stress both at work, schooll and home. PHQ9= 13 down from 15 and GAD7= 9 down from 12. Pt tolerating the 60 mg daily of cymbalta. no side effects; continues with trouble falling sleep. 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 Subjective Subjective Subjective Medication Compliance: Yes Side effects from medications: No Review of Systems Medical Review of Systems: unchanged Mental Status Exam Mental Status Exam Patient Appearance: Well Grooomed Patient Orientation: Person, Place, Time and Situation Level of Consciousness: Awake Patient Behavior: Appropriate Mood Description: Depressed and Anxious Affect Description: Depressed and Anxious Patient Cognition Impaired: No Ability to Follow Directions: Good Speech Pattern: Clear and Appropriate Memory Description: Intact Hallucinations: None Thought Process: Intact Thought Content: positive for Intact Judgement: Good Assessment and Plan Assessment & Plan (1) Major depression, recurrent: Status: Acute Qualifiers: Major depression episode severity: moderate Code(s): F33.9 - Major depressive disorder, recurrent, unspecified Plan continue cymbalta 60mg daily add magnesium glycinate 200mg at bedtime add melatonin 1-3 mg at bedtime prn sleep Medications: New duloxetine (Cymbalta) 60 mg PO DAILY 90 caps 0RF Discontinued duloxetine (Cymbalta) Discontinued Reason: Doctor's Order 30 mg PO DAILY 30 caps 0RF Orders: Orders Vitamin B12 and Folate 12/14/24 F33.9 - Major depressive disorder, recurrent, unspecified, R53.83 - Other fatigue Counseling and coordination of Care Pt. Self Management counseling: Maintenance-social rhythm, Nutrition education and improvement, Sleep hygiene, Behavior activation and General coping skills Medication management counseling: Effectiveness, Side effects, Dosing range, Duration, Drug interaction and Adherence Diagnosis and Prognosis Counseling: Accuracy of diagnosis, Prognosis over time, Impact of diagnosis on life functions, Impact of family relationship, Problematic behaviors secondary to diagnosis and Adequacy of current interventions Details: I spent [] minutes reviewing the record, seeing the patient and documenting in the medical record. Counseling provided to the patient/caregiver as outlined below. Addressed patient/caregiver concerns regarding current medication regime including effective adherence. Addressed patient/caregiver concerns regarding diagnosis and prognosis including accuracy of diagnosis, prognosis over time, impact of diagnosis. Addressed patient/caregiver concerns regarding impact of recent stressors. [facility] Medical History (Updated 12/14/24 @ 15:43 by Celina Johnson APRN) Cellulitis of skin Allergic rhinitis Obesity due to excess calories Anxiety and depression Benign essential hypertension Obesity (BMI 30-39.9) Osteoarthritis of left knee Diabetes mellitus Pure hypercholesterolemia Left knee pain History of testicular cancer Vitamin D deficiency HTN (hypertension) HLD (hyperlipidemia) T2DM (type 2 diabetes mellitus) Surgical History History of colonoscopy Hx of oral surgery Hx of fasciotomy History of orchiectomy Family History Father CVD (cardiovascular disease) Mother No problems noted. 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 He and his family moved in with his aunt 5 years ago to take care of her because she had dementia he says it was very stressful she in 07/26/2024 and this was a big loss he was very close to her. patient lost his father at age 5 Substance History: None Trauma History: Loss of father at age 5 Coding Level of Care Code Est Pt Level 4 (43400) Diagnoses Major depression, recurrent F33.9 Major depression episode severity: moderate
== END 2024-12-14 16:27 | disposition home or self-care (01) ==
LOC: HO.HOP 15:26
PROVIDERS: PCP Internal Medicine; Visit Provider Clinical Nurse Specialist Psychiatric/Mental Health
DX: F33.9 Major depressive disorder, recurrent, unspecified (principal)
CPT/HCPCS: 99214

== ENCOUNTER → 2024-12-14 15:26 | Outpatient (BNVA) | payer BC, SELFPAY | PROVIDERS: PCP Internal Medicine; Visit Provider Clinical Nurse Specialist Psychiatric/Mental Health | DX: Z13.89 Encounter for screening for other disorder (principal) ==

== ENCOUNTER 2024-12-21 15:23 | Outpatient (AMB) | payer BC, SELFPAY ==
--- NOTE | 2024-12-21 14:37 | A.OFFVIS_ITS ---
Vital Signs 12/21/24 15:39 Height 5 ft 6 in Weight 203 lb 7.787 oz BMI 32.8 BP 132/76 Blood Pressure Location Rt brachial Position Sitting Pulse 88 Pulse Source Pulse Oximeter Pulse Oximetry (%) 98 Oxygen Delivery Method Room Air Intake Visit Reasons: DM Intake Note: Patient presents today for a follow-up on Type 2 Diabetes Mellitus: Last Diabetic eye exam was on: november 2024, [facility]. 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 He was last seen 09/21/24 with an A1c of 8.9%. As with his previous visit with Dr. Fernandez he was again recommended that he restart Mounjaro Previous medication: Victoza GI distress Diabetes medications: Metformin 1000 mg twice a day Jardiance 25 mg daily Lantus 25 units at bedtime occasionally will increase to 40 units Humalog 5-7 units with meals not taking this Mounjaro 2.5mg No neuropathy: denies numbness, tingling, pain, cramping in lower extremities self care does not see podiatry Hypoglycemia: denies No Nephropathy: 09/20/2024 eGFR>60 microalbumin 9.0 09/20/24 Has retinopathy left eye last opth 07/2024 Exercise: limited due to arthritis in left knee, limited to 1/2 mile. Is currently considering purchasing an indoor bicycle. 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 education: has seen both RD and CDE [facility] Medical History (Updated 12/14/24 @ 15:43 by Celina Johnson APRN) Cellulitis of skin Allergic rhinitis Obesity due to excess calories Anxiety and depression Benign essential hypertension Obesity (BMI 30-39.9) Osteoarthritis of left knee Diabetes mellitus Pure hypercholesterolemia Left knee pain History of testicular cancer Vitamin D deficiency HTN (hypertension) HLD (hyperlipidemia) T2DM (type 2 diabetes mellitus) Surgical History History of colonoscopy Hx of oral surgery Hx of fasciotomy History of orchiectomy Family History Father CVD (cardiovascular disease) Mother No problems noted. Other Mental health problem Social History Household Members: Spouse, Family and Children Housing: House Alcohol intake: former Patient Tobacco Use Status: Never used Tobacco e-Cigarette/Vaping Use: Never Used Second Hand Smoke Exposure: Yes service: Yes Current occupational status: employed Cognitive needs: No Hearing needs: No Vision needs: Yes Physical Exam Vital Signs: Last Vital Signs Pulse 88 12/21/24 15:39 BP 132/76 12/21/24 15:39 Pulse Ox 98 12/21/24 15:39 Oxygen Delivery Method Room Air 12/21/24 15:39 BMI result Body Mass Index 32.8 Results AMB Hemoglobin A1c AMB Hemoglobin A1c 8.3 % Last Edit by NOY Schafer on 12/21/24 16:10 Results Reviewed Results Reviewed: Laboratory Last Values Glucose (Clinic) 82 mg/dL (60-115) 12/21/24 15:46 Assessment & Plan Assessment & Plan (1) T2DM (type 2 diabetes mellitus): Code(s): E11.9 - Type 2 diabetes mellitus without complications Category: Medical Qualifiers: Diabetes mellitus complication status: with hyperglycemia Diabetes 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 The patient had an opportunity to ask questions regarding treatment plan. The patient expressed understanding and agreement with the above treatment plan. The patient is aware they should contact our office by phone for worsening glucose readings or for any low blood sugars which may warrant a change in diabetes medication. Compliance is encouraged with medications and any followup testing/consults which may have been ordered. 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 Medications: Changed From tirzepatide (Mounjaro) for 4 weeks 2.5 mg (0.5 mL) subcut QWEEK 2 mL 5RF To tirzepatide (Mounjaro) for 4 weeks 5 mg subcut QWEEK 28 days 4 mL 5RF Refilled doxycycline hyclate 100 mg PO BID 10 days 20 caps 0RF L03.90 - Cellulitis, unspecified tirzepatide (Mounjaro) for 4 weeks 5 mg subcut QWEEK 28 days 4 mL 5RF Discontinued sildenafil administer 30 minutes to 4 hours before activity Discontinued Reason: Doctor's Order 50 mg PO DAILY PRN 7 tabs 0RF sexual activity Dexcom G6 Transmitter (blood-glucose transmitter) Discontinued Reason: Doctor's Order As directed 1 ea 3RF NS E11.9 - Type 2 diabetes mellitus without complications, Z79.4 - 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
[2024-12-21 15:39] VITALS: BP 132/76; PULSE 88; O2SAT 98; BMI 32.8
[2024-12-21 15:53] LABS: Glucose, Whole Blood 82 mg/dL (60-115)
== END 2024-12-21 16:18 | disposition home or self-care (01) ==
LOC: HO.ENCR 15:24
PROVIDERS: PCP Internal Medicine; Visit Provider Nurse Practitioner Adult Health
DX: E11.65 Type 2 diabetes mellitus with hyperglycemia (principal); Z79.4 Long term (current) use of insulin

== ENCOUNTER → 2024-12-21 15:23 | Outpatient (BNVA) | payer BC, SELFPAY | PROVIDERS: PCP Internal Medicine; Visit Provider Nurse Practitioner Adult Health | DX: E11.65 Type 2 diabetes mellitus with hyperglycemia (principal); Z79.84 Long term (current) use of oral hypoglycemic drugs; Z79.4 Long term (current) use of insulin | CPT/HCPCS: 82947; 83036 ==

== ENCOUNTER 2024-12-28 10:36 | Outpatient (AMB) | payer OTHER, BC, SELFPAY ==
[2024-12-28 10:48] VITALS: BP 130/86; PULSE 86; RESP 16; TEMP 36.7; O2SAT 97; BMI 32.1
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
== END 2024-12-28 11:36 | disposition home or self-care (01) ==
PROVIDERS: PCP Internal Medicine
DX: M54.2 Cervicalgia (principal); G44.209 Tension-type headache, unspecified, not intractable; S46.811D Strain of other muscles, fascia and tendons at shoulder and upper arm level, right arm, subsequent encounter; V89.2XXD Person injured in unspecified motor-vehicle accident, traffic, subsequent encounter; M54.50 Low back pain, unspecified

== ENCOUNTER 2024-12-28 10:36 | Outpatient (REF) | payer OTHER, SELFPAY ==
--- NOTE | ~2024-12-28 | XR_ITS ---
CLINICAL HISTORY: M54.2 - Cervicalgia 4 views cervical spine Comparison: None Findings: Normal vertebral body alignment. No acute fractures or dislocation. Multilevel disc space narrowing and endplate osteophyte formation, as well as facet hypertrophy. Prevertebral soft tissues within normal limits. IMPRESSION: No acute findings. This document has been electronically signed by: José Reaves MD on 01/01/2025 16:45:26
--- NOTE | ~2024-12-28 | XR_ITS ---
CLINICAL HISTORY: M54.50 - Low back pain, unspecified 3 views lumbar spine Comparison: None Findings: Normal alignment. No acute fractures or dislocation. Multilevel disc space narrowing and endplate osteophyte formation, as well as facet hypertrophy. IMPRESSION: No acute findings. This document has been electronically signed by: José Reaves MD on 01/01/2025 16:40:35
== END 2024-12-28 10:37 | disposition home or self-care (01) ==
LOC: HO.XRAY 10:36
PROVIDERS: PCP Internal Medicine
DX: M54.2 Cervicalgia (principal); M54.50 Low back pain, unspecified
CPT/HCPCS: 72040; 72100

== ENCOUNTER → 2024-12-28 11:48 | Outpatient (BNV) | payer OTHER, SELFPAY | PROVIDERS: PCP Internal Medicine; Visit Provider Radiology Diagnostic Radiology | DX: M54.2 Cervicalgia (principal); M54.50 Low back pain, unspecified | CPT/HCPCS: 72040; 72100 ==

== ENCOUNTER 2025-01-16 08:50 | Outpatient (REF) | payer OTHER, BC, SELFPAY ==
[2025-01-16 10:22] LABS: Appearance Urine Clear; Color Urine Yellow; Glucose Urine UA >=1000 mg/dL (Negative); Leukocyte Esterase Urine Negative (Negative); Nitrite Urine Negative (Negative); PH 5.5 (5.0-9.0); Specific Gravity - Urine >= 1.030 (1.005-1.025); UMIC TRIGGER UACC YES; Urine Blood Negative (Negative); Urine Ketones Negative (Negative); Urine Protein Negative (Neg-Trace)
[2025-01-16 10:25] LABS: Bacteria Urine None Seen (None Seen); Hyaline Casts Urine 0-2 /LPF (0-2); RBC Urine 0-2 /HPF (0-2); Squamous Epithelial Cell Urine 0-2 /HPF (0-2); WBC Urine 0-5 /HPF (0-5)
[2025-01-16 11:00] LABS: Cholesterol 180 mg/dL (<200); HDL Cholesterol 43 mg/dL (>40); LDL Cholesterol Calculated 118 mg/dL (<100); Triglycerides 96 mg/dL (<150)
[2025-01-16 11:03] LABS: Vitamin D 25-OH Total 34.7 ng/mL (>30)
[2025-01-16 11:07] LABS: Folate 11.4 ng/mL (> or = 4.0); Vitamin B12 581 pg/mL (200-900)
[2025-01-16 11:25] LABS: Microalbum/Creatinine Ratio Ur 8.1 ug/mg cr (<30)
[2025-01-26 00:14] LABS: Testosterone, Total 336 ng/dL (250-1100)
== END 2025-01-16 08:51 | disposition home or self-care (01) ==
LOC: HO.10HDL 08:50
PROVIDERS: Clinical Nurse Specialist Psychiatric/Mental Health; Internal Medicine; Internal Medicine Endocrinology, Diabetes & Metabolism; Visit Provider Urology
DX: E78.00 Pure hypercholesterolemia, unspecified (principal); R68.82 Decreased libido; E11.69 Type 2 diabetes mellitus with other specified complication; N52.1 Erectile dysfunction due to diseases classified elsewhere; E55.9 Vitamin D deficiency, unspecified; E11.65 Type 2 diabetes mellitus with hyperglycemia; Z79.4 Long term (current) use of insulin; F33.9 Major depressive disorder, recurrent, unspecified
CPT/HCPCS: 36415; 80061; 81001; 81003; 82043; 82306; 82570; 82607; 82746; 84402; 84403

== ENCOUNTER 2025-01-18 15:53 | Outpatient (AMB) | payer BC, SELFPAY ==
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
== END 2025-01-18 15:58 | disposition home or self-care (01) ==
LOC: HO.HOP 15:53
PROVIDERS: PCP Internal Medicine; Visit Provider Clinical Nurse Specialist Psychiatric/Mental Health
DX: F33.1 Major depressive disorder, recurrent, moderate (principal); F41.1 Generalized anxiety disorder
CPT/HCPCS: 99214

== ENCOUNTER → 2025-01-18 15:53 | Outpatient (BNVA) | payer BC, SELFPAY | PROVIDERS: PCP Internal Medicine; Visit Provider Clinical Nurse Specialist Psychiatric/Mental Health | DX: Z13.89 Encounter for screening for other disorder (principal) ==

== ENCOUNTER 2025-02-19 08:58 | Outpatient (REF) | payer OTHER, BC, SELFPAY ==
[2025-02-19 10:09] LABS: Appearance Urine Clear; Color Urine Yellow; Glucose Urine UA >=1000 mg/dL (Negative); Leukocyte Esterase Urine Negative (Negative); Nitrite Urine Negative (Negative); PH 5.5 (5.0-9.0); Specific Gravity - Urine >= 1.030 (1.005-1.025); UMIC TRIGGER UA YES; Urine Blood Negative (Negative); Urine Ketones Trace mg/dL (Negative); Urine Protein Negative (Neg-Trace)
[2025-02-19 10:19] LABS: RBC Urine 0-2 /HPF (0-2)
[2025-02-19 10:20] LABS: Bacteria Urine None Seen (None Seen); Hyaline Casts Urine 0-2 /LPF (0-2); Squamous Epithelial Cell Urine 0-2 /HPF (0-2); WBC Clumps Urine Present
== END 2025-02-19 08:59 | disposition home or self-care (01) ==
LOC: HO.10HDLNP 08:58
PROVIDERS: Visit Provider Urology
DX: R39.9 Unspecified symptoms and signs involving the genitourinary system (principal)
CPT/HCPCS: 81001; 87086

== ENCOUNTER 2025-02-27 16:00 | Outpatient (RCR) | payer OTHER, BC, SELFPAY ==
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
== END 2025-03-28 07:36 | disposition home or self-care (01) ==
LOC: HO.PTCHIC 16:00
PROVIDERS: PCP Internal Medicine
DX: M54.2 Cervicalgia (principal); S46.811D Strain of other muscles, fascia and tendons at shoulder and upper arm level, right arm, subsequent encounter; M54.50 Low back pain, unspecified
CPT/HCPCS: 97012; 97110; 97140; 97162

== ENCOUNTER 2025-03-21 08:49 | Outpatient (AMB) | payer BC, SELFPAY ==
[2025-03-21 08:54] VITALS: BP 124/76; PULSE 80; TEMP 36.6; O2SAT 96; BMI 31.8
--- NOTE | 2025-03-21 08:54 | MHC.OFFWIV ---
Intake Vital Signs 03/21/25 08:54 Height 5 ft 6 in Weight 197 lb BMI 31.8 BP 124/76 Blood Pressure Location Lt brachial Position Sitting Pulse 80 Pulse Source Pulse Oximeter Temp 97.8 F Temp Source Oral Pulse Oximetry (%) 96 Oxygen Delivery Method Room Air Intake Visit Reasons: EP-rt hand big finger swollen Intake Note: presents with right thumb pain, swelling and bruising for a couple days Patient Tobacco Use Status: Never used Tobacco Allergies Penicillins Adverse Reaction (Verified 03/21/25 08:55) GI UPSET Do you need a note to return to daycare/school/sports/work: Yes Return to daycare/school/sports/work/other note: work HPI HPI Comments History of Present Illness Details History - The patient is a 54-year-old male presenting with a swollen right thumb. - The swelling was first noticed yesterday, with a bruise appearing this morning. - The patient suspects the swelling may be due to a dog bite by his dog or a hangnail that was pulled. - The patient attempted to navin the area with a needle after swabbing with alcohol, but no discharge was noted. - The patient has a history of diabetes mellitus, which may complicate wound healing. - The patient has a significant past medical history of a fasciotomy due to a severe infection in the right leg, which required hospitalization and extended antibiotic therapy. - The patient reports a sensitivity to penicillin, which causes stomach upset. Physical Exam General: Cooperative, healthy appearing, comfortable, no acute distress and well developed Orientation: Patient oriented x3 Limitations: No limitations Head: Normal to inspection Ears: Hearing grossly normal bilaterally Nose: Normal External nose present Face and sinus: Normal facial exam Mouth: normal, moist oral mucosa Eyes: Appearance normal, both eyes and all related structures Neck: Normal visual inspection and Yes full ROM Respiratory: Normal respiratory effort and able to speak in complete sentences. Skin: right thumb with edema, erythema and small ecchymosis on medial nail bed, no fluctuance, no drainage/purulence, no rashes or lesions noted Neuro: Patient oriented x3 Extremities: moving all extremities normally [facility] Medical History (Updated 03/21/25 @ 09:17 by Ayana Cuenca PA-C) Cellulitis of skin Allergic rhinitis Obesity due to excess calories Anxiety and depression Benign essential hypertension Obesity (BMI 30-39.9) Osteoarthritis of left knee Diabetes mellitus Pure hypercholesterolemia Left knee pain History of testicular cancer Vitamin D deficiency HTN (hypertension) HLD (hyperlipidemia) T2DM (type 2 diabetes mellitus) Surgical History History of colonoscopy Hx of oral surgery Hx of fasciotomy History of orchiectomy Family History Father CVD (cardiovascular disease) Mother No problems noted. Other Mental health problem Social History Household Members: Spouse, Family and Children Housing: House Alcohol intake: former Patient Tobacco Use Status: Never used Tobacco e-Cigarette/Vaping Use: Never Used Second Hand Smoke Exposure: Yes service: Yes Current occupational status: employed Cognitive needs: No Hearing needs: No Vision needs: Yes (Glasses) Review of Systems Const All systems reviewed & are unremarkable except as noted in HPI and below Physical Exam Vital Signs: Last Vital Signs Temp 97.8 F 03/21/25 08:54 Pulse 80 03/21/25 08:54 BP 124/76 03/21/25 08:54 Pulse Ox 96 03/21/25 08:54 Oxygen Delivery Method Room Air 03/21/25 08:54 BMI result Body Mass Index 31.8 Assessment & Plan Assessment & Plan (1) Dog bite of right thumb: Code(s): S61.051A - Open bite of right thumb without damage to nail, initial encounter; W54.0XXA - Bitten by dog, initial encounter Qualifiers: Encounter type: initial encounter Qualified Code(s): S61.051A - Open bite of right thumb without damage to nail, initial encounter; W54.0XXA - Bitten by dog, initial encounter Plan: Plan Patient was informed and verbally consented to the use of an ambient scribe for clinic note documentation during this visit - unlikely a paronychia as the entire tip of the thumb is swollen and there is no area of fluctuance along the nail bed - Treat as a potential dog bite with Augmentin due to diabetic status. - Administer Tdap vaccination for tetanus protection, no history of tetanus on file Orders: Orders TDaP Immunization Today S61.051A - Open bite of right thumb without damage to nail, initial encounter, W54.0XXA - Bitten by dog, initial encounter Medications: New amoxicillin-pot clavulanate 875-125 mg 1 tab PO Q12H 14 tabs 0RF Boostrix Tdap (diphth,pertus(acell),tetanus) 0.5 mL IM ONCE 0.5 mL 0RF NS S61.051A - Open bite of right thumb without damage to nail, initial encounter, W54.0XXA - Bitten by dog, initial encounter Coding Level of Care Code Est Pt Level 3 (45831) Diagnoses Dog bite of right thumb, initial encounter S61.051A; W54.0XXA Encounter type: initial encounter
== END 2025-03-21 09:22 | disposition home or self-care (01) ==
PROVIDERS: PCP Internal Medicine; Visit Provider Physician Assistant
DX: S61.051A Open bite of right thumb without damage to nail, initial encounter (principal); W54.0XXA Bitten by dog, initial encounter

== ENCOUNTER → 2025-03-21 08:49 | Outpatient (BNVA) | payer BC, OTHER, SELFPAY | PROVIDERS: PCP Internal Medicine; Visit Provider Physician Assistant | DX: Z23 Encounter for immunization (principal); S61.051A Open bite of right thumb without damage to nail, initial encounter; W54.0XXA Bitten by dog, initial encounter | CPT/HCPCS: 90471; 90715 ==

== ENCOUNTER 2025-05-01 13:59 | Outpatient (AMB) | payer BC, SELFPAY ==
[2025-05-01 14:06] VITALS: BP 116/80; PULSE 83; RESP 18; TEMP 36.2; O2SAT 95; BMI 32.4
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
== END 2025-05-01 14:41 | disposition home or self-care (01) ==
PROVIDERS: PCP Internal Medicine
DX: E11.65 Type 2 diabetes mellitus with hyperglycemia (principal); Z79.4 Long term (current) use of insulin; E66.9 Obesity, unspecified; Z68.32 Body mass index [BMI] 32.0-32.9, adult; Z82.49 Family history of ischemic heart disease and other diseases of the circulatory system; I10 Essential (primary) hypertension; E78.5 Hyperlipidemia, unspecified; E55.9 Vitamin D deficiency, unspecified; M54.2 Cervicalgia; R42 Dizziness and giddiness; F41.9 Anxiety disorder, unspecified; F32.9 Major depressive disorder, single episode, unspecified

== ENCOUNTER 2025-05-15 08:52 | Outpatient (REF) | payer BC, SELFPAY ==
[2025-05-19 16:08] LABS: Testosterone, Free 60.5 pg/mL (35.0-155.0)
== END 2025-05-15 08:53 | disposition home or self-care (01) ==
LOC: HO.10HDL 08:52
PROVIDERS: Visit Provider Urology
DX: I10 Essential (primary) hypertension (principal)
CPT/HCPCS: 36415; 84402; 84403

== ENCOUNTER 2025-05-16 13:17 | Outpatient (AMB) | payer BC, SELFPAY ==
--- NOTE | 2025-05-16 13:24 | A.OFFVIS_ITS ---
Vital Signs 05/16/25 13:25 Height 5 ft 6 in Weight 202 lb 13.204 oz BMI 32.7 BP 146/82 H Blood Pressure Location Rt brachial Position Sitting Pulse 71 Pulse Source Pulse Oximeter Pulse Oximetry (%) 96 Oxygen Delivery Method Room Air Intake Visit Reasons: DM Intake Note: Patient presents today for a follow-up on Type 2 Diabetes Mellitus: Last Diabetic eye exam was on: , [facility]. Last Podiatry exam was on: Patient does not see a Road Cutter Most recent HbA1c: 13.3%, 05/16/2025 Random Glucose- 277 mg/dL, Today Software Test Engineer Required: No Accompanied by: Self / Same As Patient Allergies Penicillins Adverse Reaction (Verified 05/16/25 13:25) GI UPSET HPI Comments Details: Patient is a 54-year-old male with DM type 2 diagnosed 2014, who presents for management of diabetes. Diabetes medications: Metformin 1000 mg twice a day Jardiance 25 mg daily Lantus 25 units at bedtime Humalog 5-7 units with meals- not taking this Mounjaro 2.5 mg (has not restarted) Previous medication: Victoza GI distress A1C 13.3% from A1C 8.3% 12/2024. He has been out of metformin. He did not restart the mounjaro. He does not take meal time insulin. Has been consistent with Lantus 25 units. Is almost out of Jardiance. Dietary indiscretion-lots of stress recently No neuropathy: denies numbness, tingling, pain, cramping in lower extremities self care does not see podiatry Hypoglycemia: denies No Nephropathy: 09/20/2024 eGFR>60 microalbumin 9.0 09/20/24 Has retinopathy left eye. eye exam utd Exercise: limited due to arthritis in left knee, limited to 1/2 mile. Is currently considering purchasing an indoor bicycle. Allergy Specialist - CDE education: has seen both RD and CDE ROS CONSTITUTIONAL: Denies weight loss, fever and chills. HEENT: Denies changes in vision and hearing. RESPIRATORY: Denies SOB and cough. CV: Denies palpitations and CP GI: Denies abdominal pain, nausea, vomiting and diarrhea. : Denies dysuria and urinary frequency. MSK: Denies new myalgia and joint pain. SKIN: Denies rash and pruritus. NEUROLOGICAL: Denies headache PSYCHIATRIC: Denies recent changes in mood. PHYSICAL EXAM: GENERAL: Alert and oriented x 3. NAD EYES: EOMI. Anicteric. HENT: Moist mucous membranes. No scleral icterus. No cervical lymphadenopathy. LUNGS: Clear to auscultation bilaterally. CARDIOVASCULAR: Regular rate and rhythm. No murmur. No JVD. ABDOMEN: Soft EXTREMITIES: No edema. Non-tender. SKIN: No visible rashes or lesions. Warm. NEUROLOGIC: No focal neurological deficits. CN II-XII grossly intact PSYCHIATRIC: Cooperative. Appropriate mood and affect [facility] Medical History Cellulitis of skin Allergic rhinitis Obesity due to excess calories Anxiety and depression Benign essential hypertension Obesity (BMI 30-39.9) Osteoarthritis of left knee Diabetes mellitus Pure hypercholesterolemia Left knee pain History of testicular cancer Vitamin D deficiency HTN (hypertension) HLD (hyperlipidemia) T2DM (type 2 diabetes mellitus) Surgical History History of colonoscopy Hx of oral surgery Hx of fasciotomy History of orchiectomy Family History Father CVD (cardiovascular disease) Mother No problems noted. Other Mental health problem Social History Household Members: Spouse, Family and Children Housing: House Alcohol intake: former Patient Tobacco Use Status: Never used Tobacco e-Cigarette/Vaping Use: Never Used Second Hand Smoke Exposure: Yes service: Yes Current occupational status: employed Cognitive needs: No Hearing needs: No Vision needs: Yes (Glasses) Physical Exam Vital Signs: Oxygen Delivery Method Room Air 05/16/25 13:25 Results AMB Hemoglobin A1c AMB Hemoglobin A1c 13.3 % Last Edit by NOY Johnson on 05/16/25 13:5 5 Assessment & Plan Assessment & Plan (1) T2DM (type 2 diabetes mellitus): Code(s): E11.9 - Type 2 diabetes mellitus without complications Category: Medical Qualifiers: Diabetes mellitus usp insulin use: with termite renewal inspector use Diabetes mellitus complication status: with hyperglycemia Qualified Code(s): E11.65 - Type 2 diabetes mellitus with hyperglycemia; Z79.4 - correction (current) use of insulin (2) Obesity (BMI 30-39.9): Code(s): E66.9 - Obesity, unspecified Category: Medical Plan Type 2 diabetes, uncontrolled Patient is aware that he needs to restart metformin, mounjaro, continue jardiance, lantus. Improve diet. Exercise as tolerated He will return in 3 months or sooner as needed. Advised to call if glucose continues to be elevated Orders: Orders AMB Hemoglobin A1c Today E11.65 - Type 2 diabetes mellitus with hyperglycemia, Z79.4 - correction (current) use of insulin Medications: New ondansetron HCl 4 mg PO Q8H PRN 30 tabs 1RF nausea and vomiting Changed From metformin ER 1,000 mg (2 x 500 mg) PO BID 30 days 120 tabs 1RF To metformin ER 1,000 mg (2 x 500 mg) PO BID 360 tabs 3RF 90 days From tirzepatide (Mounjaro) for 4 weeks 2.5 mg subcut QWEEK To Mounjaro (tirzepatide) for 4 weeks 2.5 mg (0.5 mL) subcut QWEEK 6 mL 3RF NS From Lantus Solostar U-100 Insulin (insulin glargine) 25 units (0.25 mL) subcut DAILY 15 mL 5RF NS To Lantus Solostar U-100 Insulin (insulin glargine) 25 units (0.25 mL) subcut DAILY 24 mL 3RF 90 days NS From empagliflozin (Jardiance) 25 mg PO DAILY 90 days 90 tabs 3RF To Jardiance (empagliflozin) 25 mg PO DAILY 90 tabs 3RF 90 days NS Coding Level of Care Code Est Pt Level 4 (71846) Diagnoses Type 2 diabetes mellitus with hyperglycemia, with long-term current use of insulin E11.65; Z79.4 Diabetes mellitus termite renewal inspector insulin use: with usp use Diabetes mellitus complication status: with hyperglycemia Obesity (BMI 30-39.9) E66.9
[2025-05-16 13:25] VITALS: BP 146/82; PULSE 71; O2SAT 96; BMI 32.7
[2025-05-16 13:36] LABS: Glucose, Whole Blood 277 mg/dL (60-115)
== END 2025-05-16 13:55 | disposition home or self-care (01) ==
LOC: HO.ENCR 13:18
PROVIDERS: PCP Internal Medicine; Visit Provider Internal Medicine
DX: E11.65 Type 2 diabetes mellitus with hyperglycemia (principal); Z79.4 Long term (current) use of insulin; E66.9 Obesity, unspecified

== ENCOUNTER → 2025-05-16 13:17 | Outpatient (BNVA) | payer BC, SELFPAY | PROVIDERS: PCP Internal Medicine; Visit Provider Internal Medicine | DX: E11.65 Type 2 diabetes mellitus with hyperglycemia (principal); E66.9 Obesity, unspecified; Z68.32 Body mass index [BMI] 32.0-32.9, adult | CPT/HCPCS: 82947; 83036 ==

== ENCOUNTER 2025-05-24 14:51 | Outpatient (AMB) | payer BC, SELFPAY ==
--- NOTE | 2025-05-24 15:16 | A.OFFPSYCH_ITS ---
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: No Allergies Penicillins Adverse Reaction (Verified 05/16/25 13:25) GI UPSET Medication List - Last Reconciled 05/24/25 by Celina Johnson APRN atorvastatin 40 mg PO DAILY 30 days blood sugar diagnostic (Accu-Chek Guide test strips) As directed blood-glucose meter (Accu-Chek Guide Me Glucose Meter) As directed blood-glucose sensor (StockStreams G7 Sensor device) As directed change every 10 days duloxetine (Cymbalta) 60 mg PO DAILY duloxetine (Cymbalta) 30 mg PO DAILY flash glucose scanning reader As directed ibuprofen 800 mg PO Q8H PRN 15 days Jardiance (empagliflozin) 25 mg PO DAILY 90 days NS Lantus Solostar U-100 Insulin (insulin glargine) 25 units (0.25 mL) subcut DAILY 90 days NS lisinopril 5 mg PO DAILY 90 days metformin ER 1,000 mg (2 x 500 mg) PO BID 90 days Mounjaro (tirzepatide) 2.5 mg (0.5 mL) subcut QWEEK NS ondansetron HCl 4 mg PO Q8H PRN [Pen needle 32 gauge x 4/32 (P3BD Ultra-Fine Sonal Pen Needle) use as directed with insulin pen 4 times a day (with meals and at bedtime)] pen needle, diabetic As directed pen needle, diabetic (Comfort EZ Pen [place]) As directed tadalafil 10 mg PO ONCE PRN 30 days tadalafil 5 mg PO DAILY 90 days HPI- Psychiatric Chief Complaint: follow up HPI Narrative: pt here for follow up for anxiety and depression. PHQ9=9 down from 15 upon admission and GAD7- 8 down from 12 and Pt reports some improvement but continued stress but seeing some relief; Pt tolerating the 90 mg daily of cymbalta. no side effects; continues with trouble falling sleep. 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 Subjective Subjective Subjective Medication Compliance: Yes Side effects from medications: No Review of Systems Medical Review of Systems: unchanged Mental Status Exam Mental Status Exam Patient Appearance: Well Grooomed Patient Orientation: Person, Place, Time and Situation Level of Consciousness: Awake Patient Behavior: Appropriate Mood Description: Depressed and Anxious Affect Description: Depressed and Anxious Patient Cognition Impaired: No Ability to Follow Directions: Good Speech Pattern: Clear and Appropriate Memory Description: Intact Hallucinations: None Thought Process: Intact Thought Content: positive for Intact Judgement: Fair Assessment and Plan Assessment & Plan (1) Major depression, recurrent: Status: Acute Qualifiers: Active/Remission status: currently active Major depression episode severity: moderate Qualified Code(s): F33.1 - Major depressive disorder, recurrent, moderate Code(s): F33.9 - Major depressive disorder, recurrent, unspecified (2) CLAUDY (generalized anxiety disorder): Status: Acute Code(s): F41.1 - Generalized anxiety disorder (3) ADHD (attention deficit hyperactivity disorder), combined type: Status: Acute Code(s): F90.2 - Attention-deficit hyperactivity disorder, combined type Plan trial of vyvanse for ADHD symppomts strongly urge therapy return in 4 weeks Medications: New lisdexamfetamine (Vyvanse) Partial Fill upon patient request. 20 mg PO QAM 30 caps 0RF Changed From duloxetine (Cymbalta) 60 mg PO DAILY 90 caps 1RF To duloxetine 60 mg PO DAILY 90 caps 1RF Discontinued duloxetine (Cymbalta) Discontinued Reason: Doctor's Order 30 mg PO DAILY 90 caps 1RF Counseling and coordination of Care Pt. Self Management counseling: Exercise, Maintenance-social rhythm, Mind fulness, Mod caffeine/ETOH intake, Nutrition education and improvement, Sleep hygiene and General coping skills Medication management counseling: Effectiveness, Side effects, Dosing range, Duration, Drug interaction and Adherence Diagnosis and Prognosis Counseling: Accuracy of diagnosis, Prognosis over time, Impact of diagnosis on life functions, Impact of family relationship, Problematic behaviors secondary to diagnosis and Adequacy of current interventions Details: I spent 35 minutes reviewing the record, seeing the patient and documenting in the medical record. Counseling provided to the patient/caregiver as outlined below. Addressed patient/caregiver concerns regarding current medication regime including effective adherence. Addressed patient/caregiver concerns regarding diagnosis and prognosis including accuracy of diagnosis, prognosis over time, impact of diagnosis. Addressed patient/caregiver concerns regarding impact of recent stressors. [facility] Medical History Cellulitis of skin Allergic rhinitis Obesity due to excess calories Anxiety and depression Benign essential hypertension Obesity (BMI 30-39.9) Osteoarthritis of left knee Diabetes mellitus Pure hypercholesterolemia Left knee pain History of testicular cancer Vitamin D deficiency HTN (hypertension) HLD (hyperlipidemia) T2DM (type 2 diabetes mellitus) Surgical History History of colonoscopy Hx of oral surgery Hx of fasciotomy History of orchiectomy Family History Father CVD (cardiovascular disease) Mother No problems noted. 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 He and his family moved in with his aunt 5 years ago to take care of her because she had dementia he says it was very stressful she in 07/26/2024 and this was a big loss he was very close to her. patient lost his father at age 5 Substance History: None Trauma History: Loss of father at age 5 Coding Level of Care Code Est Pt Level 4 (74355) Diagnoses Moderate episode of recurrent major depressive disorder F33.1 Active/Remission status: currently active Major depression episode severity: moderate CLAUDY (generalized anxiety disorder) F41.1 ADHD (attention deficit hyperactivity disorder), combined type F90.2
== END 2025-05-24 15:59 | disposition home or self-care (01) ==
LOC: HO.HOP 14:51
PROVIDERS: PCP Internal Medicine; Visit Provider Clinical Nurse Specialist Psychiatric/Mental Health
DX: F33.1 Major depressive disorder, recurrent, moderate (principal); F41.1 Generalized anxiety disorder; F90.2 Attention-deficit hyperactivity disorder, combined type
CPT/HCPCS: 99214

== ENCOUNTER 2025-05-30 13:27 | Outpatient (AMB) | payer BC, SELFPAY ==
--- NOTE | 2025-05-30 13:31 | MHC.OFFVIS ---
Intake Visit Reasons: weak urine stream Intake Note: Patient is present for follow up on weak urine stream Urology Medication:TADALAFIL Antibiotic Allergy:PENICILLIN Blood Thinner:NONE Labs done 05/15/25 : Total testosterone : 334, Fr Testosterone 60.5 Milk Route Deliverer Required: No Accompanied by: Self / Same As Patient Allergies Penicillins Adverse Reaction (Verified 05/30/25 13:32) GI UPSET HPI Comments Details: Nikita is a pleasant male. He is a patient of Dr. Smith. He seen for the following urologic conditions - erectile dysfunction setting of diabetes Six-month follow-up Testosterone 05/31 335 F 60 Target testosterone for diabetics based on T4DM study is 400-600 Would recommend testosterone cheondoism Medication trial with enclomiphene Erectile dysfunction in setting of diabetes Progressive over past 5 years Trial 5 mg daily tadalafil with 20 mg on demand Sildenafil headache PFSH Medical History Cellulitis of skin Allergic rhinitis Obesity due to excess calories Anxiety and depression Benign essential hypertension Obesity (BMI 30-39.9) Osteoarthritis of left knee Diabetes mellitus Pure hypercholesterolemia Left knee pain History of testicular cancer Vitamin D deficiency HTN (hypertension) HLD (hyperlipidemia) T2DM (type 2 diabetes mellitus) Surgical History History of colonoscopy Hx of oral surgery Hx of fasciotomy History of orchiectomy Family History Father CVD (cardiovascular disease) Mother No problems noted. Other Mental health problem Social History Household Members: Spouse, Family and Children Housing: House Alcohol intake: former Patient Tobacco Use Status: Never used Tobacco e-Cigarette/Vaping Use: Never Used Second Hand Smoke Exposure: Yes service: Yes Current occupational status: employed Cognitive needs: No Hearing needs: No Vision needs: Yes (Glasses) Review of Systems Const Denies chills and Denies fever(s) Card Reports no additional complaints and Denies syncope Resp Denies cough GI Denies abdominal pain and Denies heartburn Reports as per HPI and Denies change in libido Neuro Denies syncope Psych Denies change in libido Endo Denies change in libido Physical Exam Const General: cooperative, healthy appearing, comfortable and no acute distress Orientation/consciousness: patient oriented x3 HEENT Face and sinus: Yes normal facial exam Mouth: moist mucous membranes Neck Neck: Yes normal visual inspection, Yes full ROM and Yes trachea midline Chest Chest palpation & inspection: normal inspection of the chest Resp Effort & Inspection: normal respiratory effort, able to speak in complete sentences and no respiratory distress GI Inspection: Yes normal to inspection Back/Spine/Pelvis Cervical Spine: normal cervical lordosis Thoracic/Lumbar Spine: thoracic and lumbar spine normal to inspection Skin General skin exam: no rashes or lesions noted Neuro General: patient oriented x3, gait normal, tone normal and moves all extremities Extrem General: Yes normal to inspection and Yes capillary refill normal Assessment & Plan Assessment & Plan (1) Low testosterone: Code(s): R79.89 - Other specified abnormal findings of blood chemistry Category: Medical Plan Trial testosterone cheondoism Six-month follow-up lab work Orders: Orders Lutenizing Hormone 5 Months R79.89 - Other specified abnormal findings of blood chemistry Testosterone, Free/Total 5 Months R79.89 - Other specified abnormal findings of blood chemistry Medications: New [enclomiphene] Patient Cell Number - 1 tab PO DAILY 90 tabs 1RF [facility] - Fax 90 days E11.9 - Type 2 diabetes mellitus without complications, R79.89 - Other specified abnormal findings of blood chemistry Patient Instructions: This note is constructed using voice recognition software. While every effort has been made to ensure accuracy service desk associate errors may have been included. Imaging studies, laboratory and physical exam results were discussed and reviewed in detail. No major barriers to patient understanding were identified. An opportunity to ask questions regarding the treatment plan was provided. All questions were answered. The patient expressed understanding and agreement with the above treatment plan. The patient is aware they should contact our office by phone for worsening of their current condition or the appearance of new urologic symptoms. Compliance is encouraged with any medications and followup testing that is ordered. It is a privilege to participate in the urologic care of your patient. If you have any questions or concerns regarding treatment for the above conditions, or other urologic issues, please do not hesitate to contact me. The office telephone contact is [phone]. Sincerely, Dr Adarsh Chambers MD, [facility] - Urology Compassionate Specialist Care for the Genitourinary System Coding Level of Care Code Est Pt Level 4 (11757) Complex EM visit Add On G2211 Diagnoses Low testosterone R79.89
== END 2025-05-30 14:22 | disposition home or self-care (01) ==
LOC: HO.HUSH 13:28
PROVIDERS: PCP Internal Medicine; Visit Provider Urology
DX: Z13.9 Encounter for screening, unspecified (principal); R79.89 Other specified abnormal findings of blood chemistry
CPT/HCPCS: 99214

== ENCOUNTER → 2025-05-30 13:27 | Outpatient (BNVA) | payer BC, SELFPAY | PROVIDERS: PCP Internal Medicine; Visit Provider Urology | DX: R79.89 Other specified abnormal findings of blood chemistry (principal) | CPT/HCPCS: 81003 ==

== ENCOUNTER → 2025-07-10 13:54 | Outpatient (REF) | payer BC, SELFPAY ==
--- NOTE | 2025-07-10 13:56 | CA_ITS ---
Transthoracic Echocardiogram Patient (Last, First, Middle): Nikita Lagos T Gender: M Date of : 1970 Age: 54 Procedure Date: 07/10/2025 Procedure Type: Transthoracic Echocardiogram Location: OP Height: 165.1 cm Weight: 87.09 kg BSA: 1.94 m2 Heart Rate: 81 bpm BP: 148 / 78 mmHg Carroting Machine Operator: SB Referring MD: Carlos Ngo SEPARATOR INSERTER-C Symptoms: R06.09 - Other forms of dyspnea Study Quality: Fair ECG Rhythm: Sinus Conclusions: - The left ventricular systolic function is mildly decreased. The visually estimated ejection fraction is between 45-50%. - No obvious valvular pathology seen on this study. Findings Procedure Information The quality of the study was technically difficult. The study quality is limited by lung artifact. Left Ventricle Normal left ventricular cavity size. The left ventricular systolic function is mildly decreased. The visually estimated ejection fraction is between 45 50%. There is mild global hypokinesis. Diastolic function is normal for age. There is mild septal asymmetric hypertrophy. Right Ventricle Normal right ventricular cavity size and systolic function. Atria Both atria are normal in size. Aortic Valve There is a normal trileaflet aortic valve. There is no aortic valve stenosis. There is no aortic valve regurgitation. Mitral Valve The mitral valve appears normal. There is no mitral valve regurgitation. There is no mitral valve stenosis. Pulmonic Valve The pulmonic valve is likely normal. Tricuspid Valve There is no tricuspid valve regurgitation. Tricuspid regurgitation envelope is inadequate for calculation of right ventricular systolic pressure. Great Vessels The asc aorta and aortic arch are normal in size. Venous The inferior vena cava is normal in size and collapses greater than 50% with inspiration. Pericardium/Pleural There is no evidence of pericardial effusion. Prior Study Comparison No significant change compared to prior study dated: 05/24/2020. LVEF slightly lower than previously reported, but upon review of images, no significant change. Recommendations, Care & Conclusions No obvious valvular pathology seen on this study. Measurements 2D Linear Measurements IVSd: 1.15 0.6-0.9/0.6-1.0 cm LVIDd: 5.35 3.9-5.3/4.2-5.9 cm LVIDd Index: 2.76 2.4-3.2/2.2-3.1 cm/m2 LVIDs: 4.05 2.0-3.6 cm LVPWd: 0.77 0.7-1.1 cm LA Diam: 3.60 2.7-3.8/3.0-4.0 cm LAIDs Index: 1.86 1.5-2.3 cm/m2 LV Mass: 240.02 67-162/88-224 g LV Mass Index: 123.72 43-95/49-115 g/m2 LVOT Diam: 2.40 3.0+(-)1.3 cm 2D Systolic Function EF Teich: 47.80 >55% EF 4C: 48.20 >55% EF 2C: 46.00 >55% EF BiP: 47.00 >55% Mitral Valve MV Pk E: 0.60 MV PK A: 0.69 MV Decel Time: 148.00 E/A: 0.90 E'Lateral: 9.90 E'Medial: 7.07 E/E' Med: 8.50 E/E' Lat: 6.10 PHT: 43.00 MVA PHT: 5.12 Decel [place]: 4.10 Aortic Valve AoV Pk Douglas: 1.16 AoV Pk Grad: 5.00 LVOT LVOT Pk Douglas: 0.82 LVOT Mn Douglas: 0.64 LVOT VTI: 0.15 LVOT Pk Grad: 3.00 LVOT Mn Grad: 2.00 LVOT Diam: 2.40 LVOT Area: 4.52 Diastolic Function MV Pk E: 0.60 MV Pk A: 0.69 E/A: 0.90 E'Medial: 7.07 E/E' Med: 8.50 E' Laterial: 9.90 E/E' Lat: 6.10 Right Ventricle TAPSE (mm): 22.40 TVS' Douglas: 14.60 Great Vessels Aorta Sinus of Valsalva: 3.40 2.0-3.5 cm Ao Asc: 3.80 2.1-3.4 cm Ao Arch: 3.10 Pulmonary Veins Pulm Vein S/D 1.50 Pulmonary Valve PV Pk Douglas: 1.01 Peak PV Grad: 4.00 Updated in Other Vendor System with Status of Final Gregory Dumont MD electronically signed on 07/10/2025 4:02:41 PM with status of Final
== END ==
LOC: HO.CARD 13:54
PROVIDERS: PCP Internal Medicine
DX: R06.09 Other forms of dyspnea (principal)
CPT/HCPCS: 93306

== ENCOUNTER → 2025-07-10 13:56 | Outpatient (BNV) | payer BC, SELFPAY | PROVIDERS: PCP Internal Medicine; Visit Provider Internal Medicine | DX: I42.2 Other hypertrophic cardiomyopathy (principal); R06.09 Other forms of dyspnea | CPT/HCPCS: 93306 ==

== ENCOUNTER 2025-08-15 15:28 | Outpatient (AMB) | payer BC, SELFPAY ==
--- NOTE | 2025-08-15 15:29 | A.OFFVIS_ITS ---
Vital Signs 08/15/25 15:31 Height 5 ft 6 in Weight 196 lb 0.108 oz BMI 31.6 BP 122/80 Blood Pressure Location Rt brachial Position Sitting Pulse 94 Pulse Source Pulse Oximeter Pulse Oximetry (%) 96 Oxygen Delivery Method Room Air Intake Visit Reasons: DM Intake Note: Patient presents today for a follow-up on Type 2 Diabetes Mellitus: Last Diabetic eye exam was on: , [facility]. Last Podiatry exam was on: Patient does not see a Air Hose Coupler Most recent HbA1c: 12.0%, 08/15/2025 Random Glucose- 121 mg/dL, Today Model [employer]' Required: No Accompanied by: Self / Same As Patient Allergies Penicillins Adverse Reaction (Verified 05/30/25 13:32) GI UPSET HPI Comments Details: Patient is a 54-year-old male with DM type 2 diagnosed 2014, who presents for management of diabetes. Diabetes medications: Metformin 1000 mg twice a day Jardiance 25 mg daily Lantus 25 units at bedtime Humalog 5-7 units with meals- not taking this Mounjaro 2.5 mg Previous medication: Victoza GI distress A1C 12.0% from13.3% from A1C 8.3% 12/2024. He restarted metformin and mounjaro in may He does not take meal time insulin. Has been consistent with Lantus 25 units. Improving diet No neuropathy: denies numbness, tingling, pain, cramping in lower extremities self care does not see podiatry Hypoglycemia: denies No Nephropathy: 09/20/2024 eGFR>60 microalbumin 9.0 09/20/24 Has retinopathy left eye. eye exam utd Exercise: limited due to arthritis in left knee, limited to 1/2 mile. Is currently considering purchasing an indoor bicycle. Conveyor Monitor - CDE education: has seen both RD and CDE ROS CONSTITUTIONAL: Denies weight loss, fever and chills. HEENT: Denies changes in vision and hearing. RESPIRATORY: Denies SOB and cough. CV: Denies palpitations and CP GI: Denies abdominal pain, nausea, vomiting and diarrhea. : Denies dysuria and urinary frequency. MSK: Denies new myalgia and joint pain. SKIN: Denies rash and pruritus. NEUROLOGICAL: Denies headache PSYCHIATRIC: Denies recent changes in mood. PHYSICAL EXAM: GENERAL: Alert and oriented x 3. NAD EYES: EOMI. Anicteric. HENT: Moist mucous membranes. No scleral icterus. No cervical lymphadenopathy. LUNGS: Clear to auscultation bilaterally. CARDIOVASCULAR: Regular rate and rhythm. No murmur. No JVD. ABDOMEN: Soft EXTREMITIES: No edema. Non-tender. SKIN: No visible rashes or lesions. Warm. NEUROLOGIC: No focal neurological deficits. CN II-XII grossly intact PSYCHIATRIC: Cooperative. Appropriate mood and affect [facility] Medical History Cellulitis of skin Allergic rhinitis Obesity due to excess calories Anxiety and depression Benign essential hypertension Obesity (BMI 30-39.9) Osteoarthritis of left knee Diabetes mellitus Pure hypercholesterolemia Left knee pain History of testicular cancer Vitamin D deficiency HTN (hypertension) HLD (hyperlipidemia) T2DM (type 2 diabetes mellitus) Surgical History History of colonoscopy Hx of oral surgery Hx of fasciotomy History of orchiectomy Family History Father CVD (cardiovascular disease) Mother No problems noted. Other Mental health problem Social History Household Members: Spouse, Family and Children Housing: House Alcohol intake: former Patient Tobacco Use Status: Never used Tobacco e-Cigarette/Vaping Use: Never Used Second Hand Smoke Exposure: Yes service: Yes Current occupational status: employed Cognitive needs: No Hearing needs: No Vision needs: Yes (Glasses) Physical Exam Vital Signs: Last Vital Signs Pulse 94 08/15/25 15:31 BP 122/80 08/15/25 15:31 Pulse Ox 96 08/15/25 15:31 Oxygen Delivery Method Room Air 08/15/25 15:31 BMI result Body Mass Index 31.6 Results AMB Hemoglobin A1c AMB Hemoglobin A1c 12.0 % Last Edit by NOY Johnson on 08/15/25 15:4 4 Results Reviewed Results Reviewed: Laboratory Last Values Glucose (Clinic) 121 mg/dL (60-115) H 08/15/25 15:36 Hgb A1c (Clinic) 12.0 % (4.0-6.0) H 08/15/25 15:39 Assessment & Plan Assessment & Plan (1) T2DM (type 2 diabetes mellitus): Code(s): E11.9 - Type 2 diabetes mellitus without complications Category: Medical Qualifiers: Diabetes mellitus long-term insulin use: with long-term use Diabetes mellitus complication status: with hyperglycemia Qualified Code(s): E11.65 - Type 2 diabetes mellitus with hyperglycemia; Z79.4 - it business systems analyst (current) use of insulin Plan 54 year old male for diabetic follow up Improving but still very high A1C. Increase mounjaro to 5mg. Increase lantus to 30 units and 35 units if still running high Treat hypoglycemia by rule of 15s Will plan to see in 3 months but can call sooner if needed Orders: Orders AMB Hemoglobin A1c 08/15/25 E11.65 - Type 2 diabetes mellitus with hyperglycemia, Z79.4 - correction (current) use of insulin Medications: New Mounjaro (tirzepatide) 5 mg (0.5 mL) subcut QWEEK 2 mL 3RF NS Changed From Lantus Solostar U-100 Insulin (insulin glargine) 25 units (0.25 mL) subcut DAILY 90 days 24 mL 3RF NS To Lantus Solostar U-100 Insulin (insulin glargine) 35 units (0.35 mL) subcut DAILY 33 mL 3RF 90 days NS Coding Level of Care Code Est Pt Level 4 (64668) Diagnoses Type 2 diabetes mellitus with hyperglycemia, with long-term current use of insulin E11.65; Z79.4 Diabetes mellitus paralegal supervisor insulin use: with paralegal supervisor use Diabetes mellitus complication status: with hyperglycemia
[2025-08-15 15:31] VITALS: BP 122/80; PULSE 94; O2SAT 96; BMI 31.6
[2025-08-15 15:40] LABS: Glucose, Whole Blood 121 mg/dL (60-115)
== END 2025-08-15 15:56 | disposition home or self-care (01) ==
LOC: HO.ENCR 15:29
PROVIDERS: PCP Internal Medicine; Visit Provider Internal Medicine
DX: E11.65 Type 2 diabetes mellitus with hyperglycemia (principal); Z79.4 Long term (current) use of insulin

== ENCOUNTER → 2025-08-15 15:28 | Outpatient (BNVA) | payer BC, SELFPAY | PROVIDERS: PCP Internal Medicine; Visit Provider Internal Medicine | DX: E11.65 Type 2 diabetes mellitus with hyperglycemia (principal) | CPT/HCPCS: 82947; 83036 ==